=== PATIENT | female | born 1955 | race Caucasian/White ===

== ENCOUNTER 2016-06-14 04:48 | Inpatient (IN) | payer MEDICAID ==
[~2016-06-14] VITALS: Ht 172.7 cm; Wt 70.0 kg
[2016-06-14] VITALS (11 sets, daily range): BP systolic 96–150; BP diastolic 54–82; PULSE 53–82; RESP 16–28; TEMP 97.8–98.2; O2SAT 91–98
[~2016-06-14 04:48] MED LIST: ALBU0.08 NEB; ALBUAER3 INH; HYDR-3366 PO; METO50TA11 PO; OMEP40CA2 PO; TRAZ100T4 PO
[2016-06-14] MEDS ORDERED: SODIUM CHLOR 0.9% 1000 ML INJ 1,000 ML IV SCH (05:08)
[2016-06-14] MEDS ORDERED: SODIUM CHLORIDE 0.9% FLUSH 5 ML FLUSH IVF PRN (05:15)
[2016-06-14] MEDS ORDERED: ONDANSETRON HCL 4 MG/2 ML VIAL IVP ONE (05:15)
[2016-06-14] MEDS ORDERED: HYDROmorphone HCL PF 1 MG/ML VIAL IVS ONE (05:15)
--- NOTE | 2016-06-14 05:16 | PD ---
HPI Chief Complaint: Abdominal Pain Time Seen by Provider: 05:02 Travel History International Travel<30 days: No Contact w/Intl Traveler<30days: No Traveled to known affect area: No History of Present Illness HPI The patient is a 61 year old female who presents to the [facility] emergency department with a history of abdominal pain that began approximately 24 hours ago. The patient was difficult to obtain a history from due to her pain. She is repeatedly moaning. The patient reports the pain is generalized throughout her abdomen. She is unable to describe the character, however she reports that the severity is 10 out of 10. The patient reports that she's had a subjective fever associated with this. She reports that she's had nausea and vomiting 5. She denies having any diarrhea. She last moved her bowels yesterday. She denies ever having a pain like this previously. She denies ever having colonoscopy previously. The patient denies any recent worsening cough, congestion, neck pain, chest pain, shortness of breath, urinary symptoms , or neurologic symptoms. [facility] Past Medical History Narrative Medical The patient's past medical history is significant for acid reflux, history of hypertension, hyperlipidemia, COPD, osteoarthritis with chronic left hip pain, tobacco abuse. Arthritis: Yes Autoimmune Disease: No Blood Disorders: No Anxiety: No Depression: No Heart Rhythm Problems: No Cancer: No Cardiac Catheterization: No Cardiovascular Problems: Yes (HTN) High Cholesterol: No Congestive Heart Failure: No COPD: Yes Diabetes: No Diminished Hearing: No Diverticulitis: Yes Endocrine: No Gastrointestinal Disorders: Yes (ABD PAIN, VOMITING) GERD: Yes Genitourinary: No Hepatitis: No Hiatal Hernia: No Hypertension: Yes (NOT ON MEDICATION) Immune Disorder: No Implanted Vascular Access Dvce: No Musculoskeletal: Yes Neurologic: No Psychiatric: No Reproductive: No Respiratory: Yes Immunizations Current: No Thyroid Disease: No Tetanus Vaccination: < 5 Years Influenza Vaccination: No Menopausal: Yes Past Surgical History Narrative Surgical The patient's past surgical history is significant for bilateral knee replacements, right carpal tunnel release, C-sections 3, hysterectomy, cholecystectomy, appendectomy. Abdominal Surgery: Yes (CHOLECYSTECTOMY) Appendectomy: Yes Section: Yes (1974, 1976, 1979) Cholecystectomy: Yes Coronary Artery Bypass Graft: No Gynecologic Surgery: Yes (C SECTION X 3, UTERINE RUPTURE, HYSTERECTOMY) Hysterectomy: Yes (1981) Joint Replacement: Yes (BILAT KNEE REPLACEMENT ) Pacemaker: No Other Surgery: Yes Family History Family Myocardial Infarction: Yes Social History Alcohol Use: No Tobacco Use: Yes (06/01 PPD) Substance Use: No Allergies-Medications (Allergen,Severity, Reaction): Coded Allergies: Penicillin (Verified Allergy, Severe, 06/14/16) Sulfa (Verified Allergy, Severe, 06/14/16) Morphine (Verified Adverse Reaction, Mild, ITCHING, 06/14/16) Oxycodone (Verified Adverse Reaction, Mild, ITCHING, 06/14/16) Reported Meds & Prescriptions Reported Meds & Active Scripts Active Reported Albuterol Neb (Albuterol Sulfate) 2.5 Mg/3 Ml Neb 2.5 Mg NEB Q4HR While awake [place] (Hydrocodone-Acetaminophen) 10-325 Mg Tab 1 Tab PO Q6H Proair Hfa 8.5 GM Inh (Albuterol Sulfate) 90 Mcg/Act Aer 2 Puff INH Q4HR 108 mcg/actuation Omeprazole 40 Mg Cap 40 Mg PO DAILY Metoprolol Succinate ER 24 HR (Metoprolol Succinate) 50 Mg Tab 50 Mg PO DAILY Review of Systems Except as stated in HPI: all other systems reviewed are Neg General / Constitutional: Positive: Fever Eyes: No: Visual changes HENT: No: Headaches Cardiovascular: No: Chest Pain or Discomfort Respiratory: No: Shortness of Breath Gastrointestinal: Positive: Nausea, Vomiting, Abdominal Pain, Indigestion, Loss of Appetite, No: Hematemesis, Hematochezia, Constipation, Changes in Bowel Habits Genitourinary: No: Dysuria Musculoskeletal: No: Pain Skin: No Rash Neurologic: No: Weakness Psychiatric: No: Depression Endocrine: No: Polydipsia Hematologic/Lymphatic: No: Easy Bruising Physical Exam Narrative General: The patient is a well-developed well-nourished female, uncomfortable appearing on examination, diaphoretic, moaning. Head and Neck exam: Head is normocephalic atraumatic. Eyes: Pupils are equal round and reactive to light. Nose: Midline septum with pink mucous membranes Mouth: Dentition unremarkable. Moist mucus membranes. Posterior oropharynx is not erythematous. No tonsillar hypertrophy. Uvula midline. Airway patent. Neck: No palpable lymphadenopathy. No nuchal rigidity. No thyromegaly. Cardiovascular: Regular rate and rhythm without murmurs, gallops, or rubs. Lungs: Clear to auscultation bilaterally. No wheezes, rhonchi, or rales. Abdomen: Soft, with diffuse tenderness on palpation. No focal area of pain is able to be identified with palpating the patient's abdomen. The patient has decreased bowel sounds are audible. The patient has a negative Rodríguez's sign. No masses are palpable. No hernia is palpable. Extremities: No clubbing, cyanosis, or edema. 2+ pulses in all 4 extremities. No calf tenderness on palpation. Back: No costovertebral angle tenderness to palpation. Neurologic Exam: Grossly nonfocal. Skin Exam: No rash noted. Intact skin that is warm and slightly damp from diaphoresis. Data Data Last Documented VS Vital Signs Date Time Temp Pulse Resp B/P Pulse Ox O2 Delivery O2 Flow Rate FiO2 06/14/16 05:11 28 98 Room Air 06/14/16 04:59 73 150/82 Orders Complete Blood Count With Diff (06/14/16 05:08) Comprehensive Metabolic Panel (06/14/16 05:08) Lipase (06/14/16 05:08) Lactic Acid (06/14/16 05:08) Prothrombin Time / Inr (Pt) (06/14/16 05:08) Act Partial Throm Time (Ptt) (06/14/16 05:08) Urinalysis - C+S If Indicated (06/14/16 05:08) Iv Access Insert/Monitor (06/14/16 05:08) Ecg Monitoring (06/14/16 05:08) Oximetry (06/14/16 05:08) Ondansetron Inj (Zofran Inj) (06/14/16 05:15) Sodium Chlor 0.9% 1000 Ml Inj (Ns 1000 M (06/14/16 05:08) Sodium Chloride 0.9% Flush (Ns Flush) (06/14/16 05:15) Electrocardiogram (06/14/16 05:08) Abdomen, Upright Only (06/14/16 05:08) Hydromorphone Pf Inj (Dilaudid Pf Inj) (06/14/16 05:15) Creatine Kinase (Cpk) (06/14/16 05:08) Ckmb (Isoenzyme) Profile (06/14/16 05:08) Troponin I (06/14/16 05:08) C-Reactive Protein (Crp) (06/14/16 05:08) Ct Abd/Pel W Iv Contrast(Rout) (06/14/16 05:55) Sodium Chlorid 0.9% 500 Ml Inj (Ns 500 M (06/14/16 06:30) Iohexol 350 Inj (Omnipaque 350 Inj) (06/14/16 06:39) Admit To Inpatient (06/14/16 ) Vital Signs (Adult) Q4H (06/14/16 06:59) Activity Oob With Assistance (06/14/16 06:59) ^ Battery Mechanic / Telemetry .CONTINUOUS (06/14/16 06:59) Intake + Output DRE.QSHIFT (06/14/16 06:59) Diet Npo (06/14/16 Breakfast) Sodium Chlor 0.9% 1000 Ml Inj (Ns 1000 M (06/14/16 06:59) Sodium Chloride 0.9% Flush (Ns Flush) (06/14/16 07:00) Sodium Chloride 0.9% Flush (Ns Flush) (06/14/16 09:00) Ondansetron Inj (Zofran Inj) (06/14/16 07:00) Metoclopramide Inj (Reglan Inj) (06/14/16 07:00) Basic Metabolic Panel (Bmp) (06/15/16 06:00) Complete Blood Count With Diff (06/15/16 06:00) Scd Bilateral/Knee High DRE.BID (06/14/16 06:59) Naloxone Inj (Narcan Inj) (06/14/16 07:00) Inpatient Certification (06/14/16 ) Admit Order (Ed Use Only) (06/14/16 06:59) Hydromorphone Pf Inj (Dilaudid Pf Inj) (06/14/16 07:00) Labs Laboratory Tests Test 06/14/16 05:10 White Blood Count 11.6 TH/MM3 Red Blood Count 5.96 MIL/MM3 Hemoglobin 17.9 GM/DL Hematocrit 51.6 % Mean Corpuscular Volume 86.5 FL Mean Corpuscular Hemoglobin 30.0 PG Mean Corpuscular Hemoglobin 34.6 % Concent Red Cell Distribution Width 13.2 % Platelet Count 245 TH/MM3 Mean Platelet Volume 9.4 FL Neutrophils (%) (Auto) 79.8 % Lymphocytes (%) (Auto) 12.4 % Monocytes (%) (Auto) 6.3 % Eosinophils (%) (Auto) 1.3 % Basophils (%) (Auto) 0.2 % Neutrophils # (Auto) 9.2 TH/MM3 Lymphocytes # (Auto) 1.4 TH/MM3 Monocytes # (Auto) 0.7 TH/MM3 Eosinophils # (Auto) 0.1 TH/MM3 Basophils # (Auto) 0.0 TH/MM3 CBC Comment DIFF FINAL Differential Comment Prothrombin Time 10.9 SEC Prothromb Time International 1.0 RATIO Ratio Activated Partial 27.8 SEC Thromboplast Time Sodium Level 138 MEQ/L Potassium Level 3.6 MEQ/L Chloride Level 103 MEQ/L Carbon Dioxide Level 24.2 MEQ/L Anion Gap 11 MEQ/L Blood Urea Nitrogen 11 MG/DL Creatinine 1.06 MG/DL Estimat Glomerular Filtration 53 ML/MIN Rate Random Glucose 137 MG/DL Lactic Acid Level 1.6 mmol/L Calcium Level 10.0 MG/DL Total Bilirubin 0.8 MG/DL Aspartate Amino Transf 15 U/L (AST/SGOT) Alanine Aminotransferase 23 U/L (ALT/SGPT) Alkaline Phosphatase 108 U/L Total Creatine Kinase 63 U/L Troponin I LESS THAN 0.02 NG/ML C-Reactive Protein 0.81 MG/DL Total Protein 8.4 GM/DL Albumin 4.0 GM/DL Lipase 122 U/L [facility] Medical Decision Making Medical Screen Exam Complete: Yes Emergency Medical Condition: Yes Medical Record Reviewed: Yes Interpretation(s) Last Impressions Abdomen/Pelvis CT 06/14/16 0555 Signed Impressions: Service Date/Time: Tuesday, June 14, 2016 06:21 - CONCLUSION: Distal small bowel obstruction. Carter Parikh MD Abdomen X-Ray 06/14/16 0506 Signed Impressions: Service Date/Time: Tuesday, June 14, 2016 05:25 - CONCLUSION: Normal examination. Carter Parikh MD Differential Diagnosis Bowel obstruction, versus ischemic bowel, versus pancreatitis, versus kidney stone Narrative Course During the course of the patients emergency department visit, the patients history, examination, and differential diagnosis were reviewed with the patient. The patient had IV access obtained and blood work sent for analysis. The patient was placed on a cardiac exercise physiologist with oximetry and blood pressure monitoring. The patient had an EKG done on arrival. The patient's EKG shows a sinus rhythm heart rate of 65, no acute ST segment changes are noted. An abdominal upright film has been ordered to rule out free air. The patient was provided hydromorphone 0.5 mg IV, normal saline 1 L IV fluid bolus, Zofran 4 mg IV. The patients laboratory studies were reviewed and remarkable for a white count of 11.6, hemoglobin 17.9, platelets 245 with 79.8 neutrophils, CMP is remarkable for creatinine of 1.06, glucose 137, lactic acid 1.6, cardiac enzymes are negative, C-reactive protein 0.81, lipase 122, PT PTT unremarkable. Radiology studies were reviewed and remarkable for an abdominal upright x-ray that shows no evidence of free air. CT scan of the abdomen and pelvis shows a distal small bowel obstruction. The patients results were discussed with the patient, including the plan of care. I explained that further testing and/ or monitoring is indicated based on the patients history, examination, and/ or laboratory findings. Therefore, I recommended admission for additional evaluation. The patient expressed understanding and was agreeable with this plan. The patient was admitted to the hospital in stable condition and [facility] Physician Communication Physician Communication The patient's case was discussed with Dr. Loving who did agree to admit the patient for further evaluation and treatment at this time. Diagnosis Primary Impression: Abdominal pain Qualified Code: R10.84 - Generalized abdominal pain Additional Impression: Small bowel obstruction Admitting Information Admitting Physician Requests: Admit Cat Veliz MD Jun 14, 2016 05:16
[2016-06-14 05:25] LABS: AUTOMATED NEUTROPHIL # 9.2 TH/MM3 (1.8-7.7); BASOPHIL % 0.2 % (0.0-2.0); EOSINOPHIL # 0.1 TH/MM3 (0-0.4); EOSINOPHIL % 1.3 % (0.0-4.0); HEMATOCRIT 51.6 % (35.0-46.0); HEMO FLAGS DIFF FINAL; LYMPH % 12.4 % (9.0-44.0); LYMPHOCYTE # 1.4 TH/MM3 (1.0-4.8); MEAN CELL VOLUME 86.5 FL (80.0-100.0); MEAN CORPUSCULAR HGB CONC 34.6 % (32.0-36.0); MONO % 6.3 % (0.0-8.0); NEUT % 79.8 % (16.0-70.0); PLATELET COUNT 245 TH/MM3 (150-450); RED BLOOD COUNT 5.96 MIL/MM3 (4.00-5.30); RED CELL DISTRIBUTION WIDTH 13.2 % (11.6-17.2); WHITE BLOOD COUNT 11.6 TH/MM3 (4.0-11.0)
[2016-06-14 05:34] LABS: APTT (PATIENT) 27.8 SEC (24.3-30.1); PROTHROMBIN TIME - PATIENT 10.9 SEC (9.8-11.6)
[2016-06-14 05:42] LABS: ALT (GPT) 23 U/L (10-53); ANION GAP 11 MEQ/L (5-15); AST (GOT) 15 U/L (15-37); BICARBONATE 24.2 MEQ/L (21.0-32.0); BLOOD UREA NITROGEN 11 MG/DL (7-18); CHLORIDE 103 MEQ/L (98-107); GLOMERULAR FILTRATION RATE 53 ML/MIN (>89); POTASSIUM 3.6 MEQ/L (3.5-5.1); SODIUM (NA) 138 MEQ/L (136-145)
[2016-06-14 05:46] LABS: ALKALINE PHOSPHATASE 108 U/L (45-117); TOTAL BILIRUBIN ADULT 0.8 MG/DL (0.2-1.0)
[2016-06-14 05:48] LABS: CREATINE KINASE 63 U/L (26-192)
--- NOTE | 2016-06-14 06:12 | RADRPT ---
EXAM DATE/TIME: 06/14/2016 05:25 [facility] COMPARISON: No previous studies available for comparison. INDICATIONS : Abdominal pain, vomiting. MEDICAL HISTORY : Gastroesophageal reflux disease. Diverticulitis. SURGICAL HISTORY : Appendectomy. Cholecystectomy. section. ENCOUNTER: Initial ACUITY: 1 day PAIN SCORE: 10/10 LOCATION: Abdomen, all quadrants. FINDINGS: A single erect view of the abdomen demonstrates the lower lungs to be clear. No evidence of free int raperitoneal gas. The visualized bowel loops are unremarkable. CONCLUSION: Normal examination. Carter Parikh MD on June 14, 2016 at 6:11 Board Certified Radiologist. This report was verified electronically.
[2016-06-14] MEDS ORDERED: SODIUM CHLORID 0.9% 500 ML INJ 500 ML IV ONE (06:30)
[2016-06-14] MEDS ORDERED: IOHEXOL 350 MG/ML 10 ML VIAL (for RAD DIAG) IV ONE (06:39)
--- NOTE | 2016-06-14 06:46 | RADRPT ---
EXAM DATE/TIME: 06/14/2016 06:21 [facility] COMPARISON: No previous studies available for comparison. INDICATIONS : Abdominal pain with nausea, vomiting, and constipation IV CONTRAST: 80 cc Omnipaque 350 (iohexol) IV ORAL CONTRAST: No oral contrast ingested. RADIATION DOSE: 13.71 CTDIvol (mGy) MEDICAL HISTORY : Hypertension. Gastroesophageal reflux disease. Diverticulitis.COPD SURGICAL HISTORY : Cholecystectomy. Appendectomy.Hysterectomy. ENCOUNTER: Initial ACUITY: 1 day PAIN SCALE: 10/10 LOCATION: abdomen TECHNIQUE: Volumetric scanning of the abdomen and pelvis was performed. Using automated exposure control and ad justment of the mA and/or kV according to patient size, radiation dose was kept as low as reasonably achievable to obtain optimal diagnostic quality images. FINDINGS: LOWER LUNGS: The visualized lower lungs are clear. LIVER: Mildly diminished attenuation, likely steatosis without evidence of focal mass or biliary ductal dila tation. Gallbladder is surgically absent. SPLEEN: Normal size without lesion. PANCREAS: Within normal limits. KIDNEYS: Normal in size and shape. There is no mass, stone or hydronephrosis. ADRENAL GLANDS: Within normal limits. VASCULAR: Patchy vascular calcifications. No evidence of aneurysm. No major vessel occlusion. BOWEL/MESENTERY: Small hiatal hernia. Mild dilatation of proximal small bowel up to a transition point involving a loo p of ileum in the right pelvis. No associated mass. Diverticula involving the distal colon without ch anges to suggest active diverticulitis. ABDOMINAL WALL: Within normal limits. RETROPERITONEUM: There is no lymphadenopathy. BLADDER: No wall thickening or mass. REPRODUCTIVE: Uterus is surgically absent. No evidence of pelvic mass or free fluid. INGUINAL: There is no lymphadenopathy or hernia. MUSCULOSKELETAL: Within normal limits for patient age. CONCLUSION: Distal small bowel obstruction. Carter Parikh MD on June 14, 2016 at 6:41 Board Certified Radiologist. This report was verified electronically.
[2016-06-14] MEDS ORDERED: METOCLOPRAMIDE HCL 10 MG/2 ML VIAL IV PUSH PRN (07:00)
[2016-06-14] MEDS ORDERED: SODIUM CHLORIDE 0.9% FLUSH 5 ML FLUSH FLUSH PRN (07:00)
[2016-06-14] MEDS ORDERED: NALOXONE HCL 0.4 MG/ML AMP IV PRN ×2 (07:00→12:15)
[2016-06-14] MEDS: SODIUM CHLOR 0.9% 1000 ML INJ 1,000 ML IV SCH ×3 (07:14→14:45)
--- NOTE | 2016-06-14 08:09 | HHI.HP ---
[facility] Unknown Admission Diagnosis Small bowel obstruction Diagnoses: (1) Small bowel obstruction (2) Hyperlipidemia (3) Tobacco abuse (4) COPD (chronic obstructive pulmonary disease) (5) Nicotine dependence (6) Hypertension Chief Complaint: Abdominal pain Travel History International Travel<30 Days: No Contact w/Intl Traveler <30 Da: No Traveled to Known Affected Are: No History of Present Illness 61-year-old female with a history of COPD, prior surgical history of lap cholecystectomy, appendectomy, VILMA presented to the ED for evaluation of an acute onset of worsening abdominal pain x greater than 24hours duration and described as stabbing and constant rated 10/10 in intensity associated with intractable nausea and vomiting. She reported multiple episodes of emesis nonbilious without any evidence of gross bleed. Patient reports her last BM few hours prior to the onset of abdominal pain and only had one flatus at 2 AM this morning. She denies any relief. During my exam she was constantly moaning. She feels short of breath secondary to emesis and abdominal pain otherwise denies any chest pain. There is no bladder dysfunction. Review of Systems Other Other 12 systems reviewed and are negative except for the one mentioned in history of present illness Past Family Social History Past Medical History acid reflux, history of hypertension, hyperlipidemia, COPD, osteoarthritis with chronic left hip pain, tobacco abuse. Past Surgical History bilateral knee replacements, right carpal tunnel release, C-sections 3, hysterectomy, cholecystectomy, appendectomy. Reported Medications Albuterol Neb (Albuterol Sulfate) 2.5 Mg/3 Ml Neb 2.5 Mg NEB Q4HR While awake [place] (Hydrocodone-Acetaminophen) 10-325 Mg Tab 1 Tab PO Q6H Proair Hfa 8.5 GM Inh (Albuterol Sulfate) 90 Mcg/Act Aer 2 Puff INH Q4HR 108 mcg/actuation Omeprazole 40 Mg Cap 40 Mg PO DAILY Metoprolol Succinate ER 24 HR (Metoprolol Succinate) 50 Mg Tab 50 Mg PO DAILY Allergies: Coded Allergies: Penicillin (Verified Allergy, Severe, 06/14/16) Sulfa (Verified Allergy, Severe, 06/14/16) Morphine (Verified Adverse Reaction, Mild, ITCHING, 06/14/16) Oxycodone (Verified Adverse Reaction, Mild, ITCHING, 06/14/16) Family History History of heart disease Social History Alcohol Use: No Tobacco Use: Yes (06/01 PPD) Substance Use: No Physical Exam Vital Signs Vital Signs Date Time Temp Pulse Resp B/P Pulse Ox O2 Delivery O2 Flow Rate FiO2 06/14/16 05:11 28 98 Room Air 06/14/16 05:03 20 06/14/16 04:59 73 20 150/82 95 06/14/16 04:53 82 22 98 Physical Exam GENERAL: This is a well-nourished, well-developed patient, in mild distress SKIN: No rashes, ecchymoses or lesions. Cool and dry. HEAD: Atraumatic. Normocephalic. No temporal or scalp tenderness. EYES: Pupils equal round and reactive. Extraocular motions intact. No scleral icterus. No injection or drainage. ENT: Nose without bleeding, purulent drainage or septal hematoma. Throat without erythema, tonsillar hypertrophy or exudate. Uvula midline. Airway patent. NECK: Trachea midline. No JVD or lymphadenopathy. Supple, nontender, no meningeal signs. CARDIOVASCULAR: Regular rate and rhythm without murmurs, gallops, or rubs. RESPIRATORY: Clear to auscultation. Breath sounds equal bilaterally. No wheezes , rales, or rhonchi. GASTROINTESTINAL: Abdomen soft, diffusely tender, nondistended. No hepato- splenomegaly, or palpable masses. + guarding. Hypoactive bowel sounds MUSCULOSKELETAL: Extremities without clubbing, cyanosis, or edema. No joint tenderness, effusion, or edema noted. No calf tenderness. Negative Homans sign bilaterally. NEUROLOGICAL: Awake and alert. Cranial nerves II through XII intact. Motor and sensory grossly within normal limits. Five out of 5 muscle strength in all muscle groups. Normal speech. Laboratory Laboratory Tests Test 06/14/16 05:10 White Blood Count 11.6 Red Blood Count 5.96 Hemoglobin 17.9 Hematocrit 51.6 Mean Corpuscular Volume 86.5 Mean Corpuscular Hemoglobin 30.0 Mean Corpuscular Hemoglobin 34.6 Concent Red Cell Distribution Width 13.2 Platelet Count 245 Mean Platelet Volume 9.4 Neutrophils (%) (Auto) 79.8 Lymphocytes (%) (Auto) 12.4 Monocytes (%) (Auto) 6.3 Eosinophils (%) (Auto) 1.3 Basophils (%) (Auto) 0.2 Neutrophils # (Auto) 9.2 Lymphocytes # (Auto) 1.4 Monocytes # (Auto) 0.7 Eosinophils # (Auto) 0.1 Basophils # (Auto) 0.0 CBC Comment DIFF FINAL Differential Comment Prothrombin Time 10.9 Prothromb Time International 1.0 Ratio Activated Partial 27.8 Thromboplast Time Sodium Level 138 Potassium Level 3.6 Chloride Level 103 Carbon Dioxide Level 24.2 Anion Gap 11 Blood Urea Nitrogen 11 Creatinine 1.06 Estimat Glomerular Filtration 53 Rate Random Glucose 137 Lactic Acid Level 1.6 Calcium Level 10.0 Total Bilirubin 0.8 Aspartate Amino Transf 15 (AST/SGOT) Alanine Aminotransferase 23 (ALT/SGPT) Alkaline Phosphatase 108 Total Creatine Kinase 63 Troponin I LESS THAN 0.02 C-Reactive Protein 0.81 Total Protein 8.4 Albumin 4.0 Lipase 122 Result Diagram: 06/14/16 0510 06/14/16 0510 Imaging Last Impressions Abdomen/Pelvis CT 06/14/16 0555 Signed Impressions: Service Date/Time: Tuesday, June 14, 2016 06:21 - CONCLUSION: Distal small bowel obstruction. Carter Parikh MD Abdomen X-Ray 06/14/16 0508 Signed Impressions: Service Date/Time: Tuesday, June 14, 2016 05:25 - CONCLUSION: Normal examination. Carter Parikh MD Assessment and Plan Problem List: (1) Small bowel obstruction ICD Code: K56.69 Status: Acute Assessment and Plan 61 year-old female with Distal small bowel obstruction: CT abdomen noted and reviewed by me with finding of distal small bowel obstruction. Check upper GI with small bowel follow-through and start Conservative treatment now with NG tube, IV fluid hydration, nothing by mouth, analgesic/antiemetic and Zosyn IV. If no improvement after 72 hours consider consultation to Gen. surgery versus GI for decompression +/- exp lap HALEY. Daily flat and upright in a.m. Leukocytosis: Check UA, monitor CBC. Hypertension: Resume Lopressor, Vasotec when necessary History of COPD: Chest x-ray noted and reviewed by me without any cardio pulmonary disease, resumed;, DuoNeb when necessary. Advised on tobacco cessation GERD: Start PPI Nicotine dependence: Advised on tobacco cessation, start nicotine patch DVT prophylaxis: Heparin/bilateral SCDs Code Status Full code Discussed Condition With Patient Physician Certification 2 Midnight Certification Type: Admission for Inpatient Services Order for Inpatient Services The services are ordered in accordance with Medicare regulations or non- Medicare payer requirements, as applicable. In the case of services not specified as inpatient-only, they are appropriately provided as inpatient services in accordance with the 2-midnight benchmark. Estimated LOS (days): 2 days is the estimated time the patient will need to remain in the hospital, assuming treatment plan goals are met and no additional complications. Post-Hospital Plan: Not yet determined Lars Rockwell MD Jun 14, 2016 08:09
[2016-06-14] MEDS ORDERED: RESP: ALBUTEROL 2.5 MG/IPRATROPIUM 0.5 MG NEB (PRN) NEB (08:15)
[2016-06-14] MEDS ORDERED: ACETAMINOPHEN 325 MG TAB PO PRN ×3 (08:15→12:15)
[2016-06-14] MEDS ORDERED: TEMAZEPAM 15 MG CAP PO PRN (08:15)
[2016-06-14] MEDS: METOPROLOL SUCCINATE 50 MG EXTENDED RELEASE TAB PO SCH (09:00)
[2016-06-14] MEDS: HYDROmorphone HCL PF 1 MG/ML VIAL IV PUSH PRN ×4 (09:54→23:16)
--- NOTE | 2016-06-14 10:50 | EKG ---
Date Performed: 06/14/2016 Time Performed: 05:08:16 PTAGE: 61 years EKG: Sinus rhythm NORMAL ECG Compared to prior tracing no significant change PREVIOUS TRACING : 04/05/2016 18.09 DOCTOR: Juwan Veliz Interpretating Date/Time 06/14/2016 10:45:44
[2016-06-14] MEDS: SODIUM CHLORIDE 0.9% FLUSH 5 ML FLUSH FLUSH SCH ×2 (10:58→20:39)
[2016-06-14] MEDS: PANTOPRAZOLE SODIUM 40 MG VIAL IV PUSH SCH (10:59)
[2016-06-14] MEDS: NICOTINE 21 MG/24 HR PATCH TD SCH (10:59)
[2016-06-14] MEDS: REMOVE OLD NICOTINE PATCH TD SCH (11:00)
[2016-06-14] MEDS ORDERED: ALBUTEROL SULFATE 90 MCG/ACT HFA 8 GM INHALER INH SCH (12:00)
[2016-06-14] MEDS ORDERED: MAGNESIUM CITRATE SOLN 300 ML BTL PO ONE ×2 (12:00→18:00)
[2016-06-14] MEDS ORDERED: KETOROLAC TROMETHAMINE 30 MG/ML (IVP) VIAL IVP PRN ×2 (12:15)
[2016-06-14] MEDS ORDERED: PIPERACIL-TAZO 3.375 GM PREMIX 50 ML IV SCH (12:30)
[2016-06-14] MEDS: BISACODYL EC 5 MG TABEC PO SCH ×2 (14:51→20:39)
[2016-06-14] MEDS: RESP: ALBUTEROL 2.5 MG/IPRATROPIUM 0.5 MG NEB (SCH) NEB ×2 (14:56→19:58)
[2016-06-14] MEDS ORDERED: LORazepam 2 MG/ML VIAL IV ONE (17:45)
[2016-06-15] VITALS (9 sets, daily range): BP systolic 128–155; BP diastolic 61–95; PULSE 61–82; RESP 18–20; TEMP 97.5–98.2; O2SAT 90–98
[2016-06-15] MEDS: SODIUM CHLOR 0.9% 1000 ML INJ 1,000 ML IV SCH ×3 (02:42→22:21)
[2016-06-15] MEDS: metroNIDAZOLE 500 MG INJ 100 ML IV SCH ×3 (02:42→19:51)
[2016-06-15] MEDS: HYDROmorphone HCL PF 1 MG/ML VIAL IV PUSH PRN ×4 (02:43→19:50)
[2016-06-15] MEDS: RESP: ALBUTEROL 2.5 MG/IPRATROPIUM 0.5 MG NEB (SCH) NEB ×3 (08:01→20:05)
[2016-06-15] MEDS: REMOVE OLD NICOTINE PATCH TD SCH (09:00)
[2016-06-15] MEDS: SODIUM CHLORIDE 0.9% FLUSH 5 ML FLUSH FLUSH SCH ×2 (09:00→21:00)
[2016-06-15 09:02] LABS: BASOPHIL % 0.2 % (0.0-2.0); EOSINOPHIL # 0.2 TH/MM3 (0-0.4); EOSINOPHIL % 2.9 % (0.0-4.0); HEMATOCRIT 42.6 % (35.0-46.0); HEMO FLAGS DIFF FINAL; LYMPH % 19.5 % (9.0-44.0); LYMPHOCYTE # 1.1 TH/MM3 (1.0-4.8); MEAN CELL VOLUME 87.4 FL (80.0-100.0); MEAN CORPUSCULAR HEMOGLOBIN 29.8 PG (27.0-34.0); MEAN CORPUSCULAR HGB CONC 34.1 % (32.0-36.0); MONO % 8.3 % (0.0-8.0); NEUT % 69.1 % (16.0-70.0); PLATELET COUNT 149 TH/MM3 (150-450); RED BLOOD COUNT 4.88 MIL/MM3 (4.00-5.30); WHITE BLOOD COUNT 5.8 TH/MM3 (4.0-11.0)
[2016-06-15 09:28] LABS: BICARBONATE 25.7 MEQ/L (21.0-32.0); POTASSIUM 3.4 MEQ/L (3.5-5.1)
[2016-06-15] MEDS: CIPROFLOXACIN 400 MG PREMIX 200 ML IV SCH ×2 (09:33→22:21)
--- NOTE | 2016-06-15 09:53 | RADRPT ---
EXAM DATE/TIME: 06/15/2016 08:54 [facility] COMPARISON: CT ABDOMEN & PELVIS W CONTRAST, June 14, 2016, 6:21. INDICATIONS : Possible obstruction. MEDICAL HISTORY : Hypertension. Gastroesophageal reflux disease. Diverticulitis. copd SURGICAL HISTORY : Cholecystectomy. section. perforated uterus ENCOUNTER: Initial ACUITY: 2 days PAIN SCORE: 7/10 LOCATION: Bilateral abdomen FINDINGS: Supine and upright views of the abdomen were performed. There is an NG tube identified overlying the stomach with the proximal port at the level of the gastroesophageal junction. The abdominal bowel ga s pattern is normal. No air fluid levels are seen. No abnormal masses, calcifications, or organomeg adelso is seen. The visualized lower lungs are clear. No evidence of free intraperitoneal gas. The os seous structures are unremarkable. CONCLUSION: Appropriately positioned NG tube. No current evidence of small bowel obstruction. Sari Jacinto MD on June 15, 2016 at 9:51 Board Certified Radiologist. This report was verified electronically.
--- NOTE | 2016-06-15 09:55 | MB ---
cc: PRECIOUS HEARN MD DATE OF CONSULTATION: 06/15/2016 REASON FOR CONSULTATION Abdominal pain, small bowel obstruction. HISTORY OF PRESENT ILLNESS The patient is a 61-year-old female with several medical issues and multiple surgeries including laparoscopic cholecystectomy, appendectomy, hysterectomy. The patient presents with acute onset of abdominal pain. She stated the pain started approximately 24 hours ago and continued to get worse. The pain initially was 10/10, sharp, and located in the pelvic lesion. She had several episodes of nausea and vomiting. She decided to come to the emergency department for further work-up and evaluation. She underwent CT scan showing small bowel obstruction and an NG tube was placed. She states she has passed a little bit of flatus and had a bowel movement 2 days ago. She states her pain has improved somewhat this morning but is still present. She denies any further vomiting overnight. On my exam the patient's abdomen is tender to palpation but soft. PAST MEDICAL HISTORY 1. GERD. 2. Hypertension. 3. Hyperlipidemia. 4. COPD. 5. Arthritis. PAST SURGICAL HISTORY 1. Cholecystectomy. 2. Appendectomy. 3. Hysterectomy. 4. x3. 5. Carpal tunnel. 6. Bilateral knee replacement. MEDICATIONS See EMR. ALLERGIES 1. PENICILLIN. 2. SULFA. 3. MORPHINE. 4. OXYCODONE. FAMILY HISTORY Father with diabetes and heart disease. SOCIAL HISTORY Denies ETOH or IVDA. Positive 1/4 pack smoking daily. REVIEW OF SYSTEMS GENERAL: Denies fevers. HEENT: Denies eye pain, ear pain. NECK: Denies adenopathy or swelling. CHEST: Denies palpitations or wheeze. CARDIOVASCULAR: Denies chest pains or palpitations. RESPIRATORY: Denies cough. GI: Complained of abdominal pain, nausea, vomiting. MUSCULOSKELETAL: Complained of arthralgias. Denies myalgias. NEUROLOGIC: Denies numbness or tingling. : Denies dysuria, hematuria. INTEGUMENT: Denies lesions or bruising. PSYCHIATRIC: Denies change in mood or insight. ENDOCRINE: Denies polyuria, polydipsia. PHYSICAL EXAMINATION GENERAL: Patient in no acute distress. VITAL SIGNS: Temperature 98.0, pulse 73, respirations 18, blood pressure 129/84. 92% on two liters. HEENT: PERRLA, EOMI. No icterus. NECK: Supple. Trachea midline. HEART: S1, S2, regular. LUNGS: Bilateral expansion. Clear to auscultation. ABDOMEN: Soft, minimal distension. Positive tenderness to palpation diffusely. No rebound. No guarding. EXTREMITIES: Well-healed bilateral lower extremity scars. Moving all extremities. NEUROLOGIC: GCS 15. Alert and oriented x4. : Within normal limits. SKIN: No obvious masses or lesions. LABORATORY/DIAGNOSTIC DATA WBC 5.8, hemoglobin 14.5, hematocrit 42.6, platelets 149. Sodium 138, potassium 3.6, chloride 103, BUN 11, creatinine 1, AST 15, ALT 23, alkaline phosphatase 108, albumin 4. INR 1. Imaging reviewed by myself. CT of the abdomen and pelvis evidence of distal small bowel obstruction, dilated proximal loops, decompressed distally. ASSESSMENT The patient is a 61-year-old female with small bowel obstruction, history of several surgeries, concern for adhesions. PLAN After full radiologic, clinical and laboratory assessment, patient with above-named complaints including a small bowel obstruction. At this time the patient has an NG tube in place and agree with continue on suction. Check and correct electrolytes as patient does appear to be somewhat dehydrated. Continue IV fluid and resuscitation. Continue abdominal exams. Will attempt first nonoperative therapy and if the patient does not improve will consider doing a small bowel follow-through, repeat abdominal x-ray and continue assessment. The patient may warrant operative intervention if no improvement. MD FENG Olivier/JOE /9:18 AM /9:38 AM
[2016-06-15] MEDS: NICOTINE 21 MG/24 HR PATCH TD SCH (09:57)
[2016-06-15] MEDS: METOPROLOL SUCCINATE 50 MG EXTENDED RELEASE TAB PO SCH (09:58)
[2016-06-15] MEDS ORDERED: PNEUMOCOCCAL POLYVALENT INJ 25 MCG/0.5 ML SYR IM ONE (10:00)
[2016-06-15] MEDS ORDERED: INFLUENZA VIRUS VACCINE (QUADRIVALENT) 0.5 ML SYR IM ONE (10:00)
--- NOTE | 2016-06-15 10:22 | HHI.PR ---
Subjective Remarks Follow-up distal small bowel obstruction 06/15/16-patient seen and examined; NG tube in place and reports some improvement of abdominal pain ; follow-up flat and an upright this morning without any evidence of obstruction. Objective Vitals Vital Signs Date Time Temp Pulse Resp B/P Pulse Ox O2 Delivery O2 Flow Rate FiO2 06/15/16 08:02 92 21 06/15/16 08:00 98.0 82 20 143/70 91 06/15/16 04:00 97.9 77 18 129/61 92 06/15/16 00:00 98.0 73 18 129/84 92 06/14/16 20:09 64 06/14/16 20:01 91 21 06/14/16 20:00 98.2 60 18 96/54 97 06/14/16 16:00 97.9 63 18 106/57 93 06/14/16 14:57 96 21 06/14/16 14:01 79 18 135/79 06/14/16 13:50 97.8 63 20 137/61 95 06/14/16 11:01 53 16 107/63 93 Nasal Cannula 2 06/14/16 10:40 16 I/O 06/14/16 06/14/16 06/14/16 06/15/16 06/15/16 06/15/16 07:00 15:00 23:00 07:00 15:00 23:00 Intake Total 365 ml 742 ml Balance 365 ml 742 ml Intake Oral 0 ml 0 ml IV Total 365 ml 742 ml # Voids 2 1 # Bowel Movements 0 0 Result Diagram: 06/15/1681606/15/16816 Imaging Last Impressions Abdomen X-Ray 06/15/16 0600 Signed Impressions: Service Date/Time: Wednesday, June 15, 2016 08:54 - CONCLUSION: Appropriately positioned NG tube. No current evidence of small bowel obstruction. Sari Jacinto MD Abdomen/Pelvis CT 06/14/16 0555 Signed Impressions: Service Date/Time: Tuesday, June 14, 2016 06:21 - CONCLUSION: Distal small bowel obstruction. Carter Parikh MD Objective Remarks GENERAL: NAD with NGT in place SKIN: Warm and dry. HEAD: Normocephalic. EYES: No scleral icterus. No injection or drainage. NECK: Supple, trachea midline. No JVD or lymphadenopathy. CARDIOVASCULAR: Regular rate and rhythm without murmurs, gallops, or rubs. RESPIRATORY: Breath sounds equal bilaterally. No accessory muscle use. GASTROINTESTINAL: Abdomen soft, non-tender, nondistended. Hypoactive bowel sounds MUSCULOSKELETAL: No cyanosis, or edema. BACK: Nontender without obvious deformity. No CVA tenderness. A/P Problem List: (1) Small bowel obstruction ICD Code: K56.69 Status: Resolved (2) Hyperlipidemia ICD Code: E78.5 Status: Chronic (3) Tobacco abuse ICD Code: Z72.0 Status: Chronic (4) COPD (chronic obstructive pulmonary disease) ICD Code: J44.9 Status: Chronic (5) Nicotine dependence ICD Code: F17.200 Status: Chronic (6) Hypertension ICD Code: I10 Status: Chronic Assessment and Plan 61 year-old female with Distal small bowel obstruction: CT abdomen with finding of distal small bowel obstruction. Stable with Conservative treatment now with NG tube, IV fluid hydration, nothing by mouth, analgesic/antiemetic and Cipro and Flagyl IV. Repeat upright and flax without any evidence of instruction therefore will clamp NG tube and subsequently discontinued it. Appreciate input from general surgery. Daily flat and upright in a.m. Leukocytosis: Resolved. Hypertension: Continue Lopressor, Vasotec when necessary History of COPD: Chest x-ray noted and reviewed by me without any cardio pulmonary disease, continue Symbicort, DuoNeb when necessary. Advised on tobacco cessation GERD: Continue PPI Hypokalemia: Replace electrolyte and monitor Nicotine dependence: Advised on tobacco cessation, on nicotine patch DVT prophylaxis: Heparin/bilateral SCDs Lars Rockwell MD Jun 15, 2016 10:21
[2016-06-15] MEDS: PANTOPRAZOLE SODIUM 40 MG VIAL IV PUSH SCH (11:24)
[2016-06-15] MEDS: POTASSIUM CHLOR 20 MEQ PREMIX 100 ML IV SCH ×2 (16:18→18:25)
[2016-06-16] VITALS (7 sets, daily range): BP systolic 118–156; BP diastolic 60–77; PULSE 66–105; RESP 17–20; TEMP 97.4–98.6; O2SAT 91–93
[2016-06-16] MEDS: metroNIDAZOLE 500 MG INJ 100 ML IV SCH ×3 (03:54→17:32)
[2016-06-16 06:18] LABS: BASOPHIL % 0.2 % (0.0-2.0); EOSINOPHIL # 0.1 TH/MM3 (0-0.4); EOSINOPHIL % 1.7 % (0.0-4.0); HEMATOCRIT 43.9 % (35.0-46.0); HEMO FLAGS DIFF FINAL; LYMPH % 9.8 % (9.0-44.0); LYMPHOCYTE # 0.6 TH/MM3 (1.0-4.8); MEAN CELL VOLUME 87.7 FL (80.0-100.0); MEAN CORPUSCULAR HEMOGLOBIN 30.2 PG (27.0-34.0); MEAN CORPUSCULAR HGB CONC 34.4 % (32.0-36.0); MONO % 8.6 % (0.0-8.0); NEUT % 79.7 % (16.0-70.0); PLATELET COUNT 156 TH/MM3 (150-450); RED BLOOD COUNT 5.01 MIL/MM3 (4.00-5.30); RED CELL DISTRIBUTION WIDTH 13.1 % (11.6-17.2); WHITE BLOOD COUNT 6.2 TH/MM3 (4.0-11.0)
[2016-06-16 06:48] LABS: BICARBONATE 25.6 MEQ/L (21.0-32.0); POTASSIUM 3.6 MEQ/L (3.5-5.1)
[2016-06-16] MEDS: RESP: ALBUTEROL 2.5 MG/IPRATROPIUM 0.5 MG NEB (SCH) NEB ×3 (07:52→20:17)
--- NOTE | 2016-06-16 08:33 | HHI.PR ---
Subjective Remarks Follow-up distal small bowel obstruction 06/15/16-patient seen and examined; NG tube in place and reports some improvement of abdominal pain ; follow-up flat and an upright this morning without any evidence of obstruction. 06/16/16-patient seen and examined, and G-tube was accidentally removed last night. Patient reports some improvement of bowel movement but states it doesn' t still feel right and states she is only past flatus 1 Objective Vitals Vital Signs Date Time Temp Pulse Resp B/P Pulse Ox O2 Delivery O2 Flow Rate FiO2 06/16/16 04:00 98.6 77 18 118/66 93 06/16/16 00:00 97.7 77 18 150/71 91 06/15/16 20:30 Room Air 06/15/16 20:05 92 21 06/15/16 20:00 70 06/15/16 20:00 97.8 61 18 147/95 97 06/15/16 16:00 98.2 79 20 155/76 92 06/15/16 14:00 79 06/15/16 12:00 97.9 81 20 149/72 90 I/O 06/15/16 06/15/16 06/15/16 06/16/16 06/16/16 06/16/16 07:00 15:00 23:00 07:00 15:00 23:00 Intake Total 742 ml 1138 ml 1486 ml 846 ml Output Total 900 ml 200 ml Balance 742 ml 238 ml 1286 ml 846 ml Intake Oral 0 ml 0 ml 620 ml 0 ml IV Total 742 ml 1138 ml 866 ml 846 ml Output Urine Total 400 ml 200 ml Gastric Drainage Total 500 ml # Voids 1 0 3 # Bowel Movements 0 0 0 Result Diagram: 06/16/1652606/16/16526 Imaging Last Impressions Abdomen X-Ray 06/15/16 06 Signed Impressions: Service Date/Time: Wednesday, June 15, 2016 08:54 - CONCLUSION: Appropriately positioned NG tube. No current evidence of small bowel obstruction. Sari Jacinto MD Abdomen/Pelvis CT 06/14/16 0555 Signed Impressions: Service Date/Time: Tuesday, June 14, 2016 06:21 - CONCLUSION: Distal small bowel obstruction. Carter Parikh MD Objective Remarks GENERAL: NAD SKIN: Warm and dry. HEAD: Normocephalic. EYES: No scleral icterus. No injection or drainage. NECK: Supple, trachea midline. No JVD or lymphadenopathy. CARDIOVASCULAR: Regular rate and rhythm without murmurs, gallops, or rubs. RESPIRATORY: Breath sounds equal bilaterally. No accessory muscle use. GASTROINTESTINAL: Abdomen soft, mildly tender, nondistended. Hypoactive bowel sounds MUSCULOSKELETAL: No cyanosis, or edema. BACK: Nontender without obvious deformity. No CVA tenderness. A/P Problem List: (1) Small bowel obstruction ICD Code: K56.69 Status: Resolved (2) Hyperlipidemia ICD Code: E78.5 Status: Chronic (3) Tobacco abuse ICD Code: Z72.0 Status: Chronic (4) COPD (chronic obstructive pulmonary disease) ICD Code: J44.9 Status: Chronic (5) Nicotine dependence ICD Code: F17.200 Status: Chronic (6) Hypertension ICD Code: I10 Status: Chronic Assessment and Plan 61 year-old female with Distal small bowel obstruction: CT abdomen with finding of distal small bowel obstruction. Stable with Conservative treatment now with NG tube however was accidentally discontinued last night, IV fluid hydration, nothing by mouth, analgesic/antiemetic and Cipro and Flagyl IV. Repeat flat and upright this a.m. Appreciate input from general surgery. Leukocytosis: Resolved. Hypertension: Continue Lopressor, Vasotec when necessary History of COPD: Chest x-ray noted and reviewed by me without any cardio pulmonary disease, continue Symbicort, DuoNeb when necessary. Advised on tobacco cessation GERD: Continue PPI Hypokalemia: Resolved status post replacement Nicotine dependence: Advised on tobacco cessation, on nicotine patch DVT prophylaxis: Heparin/bilateral SCDs Lars Rockwell MD Jun 16, 2016 08:33
[2016-06-16] MEDS: SODIUM CHLOR 0.9% 1000 ML INJ 1,000 ML IV SCH ×2 (09:00→19:00)
[2016-06-16] MEDS: REMOVE OLD NICOTINE PATCH TD SCH (09:00)
[2016-06-16] MEDS: CIPROFLOXACIN 400 MG PREMIX 200 ML IV SCH ×2 (09:08→21:47)
[2016-06-16] MEDS: HYDROmorphone HCL PF 1 MG/ML VIAL IV PUSH PRN ×4 (09:09→21:47)
[2016-06-16] MEDS: PANTOPRAZOLE SODIUM 40 MG VIAL IV PUSH SCH (09:10)
[2016-06-16] MEDS: NICOTINE 21 MG/24 HR PATCH TD SCH (09:11)
[2016-06-16] MEDS: SODIUM CHLORIDE 0.9% FLUSH 5 ML FLUSH FLUSH SCH ×2 (09:12→21:00)
--- NOTE | 2016-06-16 10:56 | HHI.PR ---
Subjective Subjective Notes "My NGT fell out last night." "I'm so thirsty!!" Objective Vitals/I&O Vital Signs Date Time Temp Pulse Resp B/P Pulse Ox O2 Delivery O2 Flow Rate FiO2 06/16/16 08:00 97.5 105 20 156/72 92 06/16/16 07:15 Room Air 06/15/16 20:05 21 06/14/16 11:01 2 Labs Laboratory Tests Test 06/16/16 05:27 White Blood Count 6.2 Red Blood Count 5.01 Hemoglobin 15.1 Hematocrit 43.9 Mean Corpuscular Volume 87.7 Mean Corpuscular Hemoglobin 30.2 Mean Corpuscular Hemoglobin 34.4 Concent Red Cell Distribution Width 13.1 Platelet Count 156 Mean Platelet Volume 9.1 Neutrophils (%) (Auto) 79.7 Lymphocytes (%) (Auto) 9.8 Monocytes (%) (Auto) 8.6 Eosinophils (%) (Auto) 1.7 Basophils (%) (Auto) 0.2 Neutrophils # (Auto) 5.0 Lymphocytes # (Auto) 0.6 Monocytes # (Auto) 0.5 Eosinophils # (Auto) 0.1 Basophils # (Auto) 0.0 CBC Comment DIFF FINAL Differential Comment Sodium Level 140 Potassium Level 3.6 Chloride Level 106 Carbon Dioxide Level 25.6 Anion Gap 8 Blood Urea Nitrogen 7 Creatinine 0.78 Estimat Glomerular Filtration 75 Rate Random Glucose 104 Calcium Level 8.9 Cardiovascular: Regular Lungs: Clear Abdomen: Other (abdomen soft; not distended; only mildly tender with palpation ) Extremities: No edema A/P Assessment and Plan 61 year old female with SBO -No nausea/vomiting since NGT fell out -No need to replace NGT at this time -KUB today -Start sips of clears today -OOB and mobilize -Await bowel function to advance diet -Discussed with Dr. Medrano Attending Statement patient seen at bedside ng tube came out, ok to leak out at this time Attestation The exam, history, and the medical decision-making described in the above note were completed with the assistance of the mid-level provider. I reviewed and agree with the findings presented. I attest that I had a [id number] encounter with the patient on the same day, and personally performed and documented my assessment and findings in the medical record. Viridiana Kemp Jun 16, 2016 10:56 Luis Medrano MD Jun 25, 2016 21:19
--- NOTE | 2016-06-16 11:13 | RADRPT ---
EXAM DATE/TIME: 06/16/2016 10:42 [facility] COMPARISON: ABDOMEN FLAT & UPRIGHT, June 15, 2016, 8:54. INDICATIONS : Abdominal pain. Obstruction. MEDICAL HISTORY : Hypertension. Gastroesophageal reflux disease. Diverticulitis.COPD SURGICAL HISTORY : Cholecystectomy. Appendectomy.Hysterectomy. ENCOUNTER: Subsequent ACUITY: 3 days PAIN SCORE: 6/10 LOCATION: middle abdomen. FINDINGS: Examination of the abdomen demonstrates gaseous distention of the small bowel with air fluid levels m ost consistent with ileus .There are no findings of small bowel obstruction. No free air is identifie d. No organomegaly is evident. There are surgical clips in the right upper quadrant compatible with p rior cholecystectomy. CONCLUSION: Findings consisted with mild ileus. Followup examination is recommended if clinically indicated. Mitchell Sorenson MD on June 16, 2016 at 11:10 Board Certified Radiologist. This report was verified electronically.
[2016-06-16] MEDS: METOPROLOL SUCCINATE 50 MG EXTENDED RELEASE TAB PO SCH (13:13)
[2016-06-17] VITALS (7 sets, daily range): BP systolic 118–179; BP diastolic 63–98; PULSE 60–76; RESP 18–20; TEMP 97.3–98; O2SAT 93–97
[2016-06-17] MEDS: HYDROmorphone HCL PF 1 MG/ML VIAL IV PUSH PRN ×4 (02:26→23:46)
[2016-06-17] MEDS: metroNIDAZOLE 500 MG INJ 100 ML IV SCH ×2 (02:26→11:33)
[2016-06-17] MEDS: SODIUM CHLOR 0.9% 1000 ML INJ 1,000 ML IV SCH (05:00)
[2016-06-17] MEDS: RESP: ALBUTEROL 2.5 MG/IPRATROPIUM 0.5 MG NEB (SCH) NEB ×3 (07:39→20:00)
--- NOTE | 2016-06-17 08:37 | RADRPT ---
EXAM DATE/TIME: 06/17/2016 08:28 [facility] COMPARISON: ABDOMEN FLAT & UPRIGHT, June 16, 2016, 10:42. INDICATIONS : Evaluate for ileus. MEDICAL HISTORY : Hypertension. Gastroesophageal reflux disease. Diverticulitis. COPD. SURGICAL HISTORY : Cholecystectomy. Appendectomy.Hysterectomy. . ENCOUNTER: Subsequent ACUITY: 4 - 6 days PAIN SCORE: 7/10 LOCATION: Abdomen. FINDINGS: Examination of the abdomen demonstrates gaseous distention of the small bowel with air fluid levels m ost consistent with ileus .There are no findings of small bowel obstruction. No free air is identifie d. No organomegaly is evident. There are surgical clips in the right upper quadrant compatible with p rior cholecystectomy. CONCLUSION: 1. Continued findings of small bowel ileus. There has been no significant change when compared to the prior exam. Mitchell Sorenson MD on June 17, 2016 at 8:35 Board Certified Radiologist. This report was verified electronically.
[2016-06-17] MEDS: REMOVE OLD NICOTINE PATCH TD SCH (09:00)
[2016-06-17] MEDS: PANTOPRAZOLE SODIUM 40 MG VIAL IV PUSH SCH (09:21)
[2016-06-17] MEDS: METOPROLOL SUCCINATE 50 MG EXTENDED RELEASE TAB PO SCH (09:21)
[2016-06-17] MEDS: NICOTINE 21 MG/24 HR PATCH TD SCH (09:22)
[2016-06-17] MEDS: SODIUM CHLORIDE 0.9% FLUSH 5 ML FLUSH FLUSH SCH ×2 (09:22→21:00)
[2016-06-17] MEDS: CIPROFLOXACIN 400 MG PREMIX 200 ML IV SCH ×2 (09:23→23:45)
--- NOTE | 2016-06-17 10:43 | HHI.PR ---
Subjective Remarks Follow-up distal small bowel obstruction 06/15/16-patient seen and examined; NG tube in place and reports some improvement of abdominal pain ; follow-up flat and an upright this morning without any evidence of obstruction. 06/16/16-patient seen and examined, NG-tube was accidentally removed last night. Patient reports some improvement of bowel movement but states it doesn' t still feel right and states she is only past flatus 1 06/17/16-patient seen and examined; stills complaints of abdominal pain and states she did not tolerated PO last night Objective Vitals Vital Signs Date Time Temp Pulse Resp B/P Pulse Ox O2 Delivery O2 Flow Rate FiO2 06/17/16 08:23 97.5 68 19 152/85 95 06/17/16 04:00 97.6 76 18 118/63 97 06/17/16 00:00 97.3 69 18 155/74 93 06/16/16 20:50 Room Air 06/16/16 20:00 97.4 66 17 138/67 92 06/16/16 20:00 70 06/16/16 16:00 98.0 70 20 145/77 91 06/16/16 12:00 98.0 93 20 130/60 92 I/O 06/16/16 06/16/16 06/16/16 06/17/16 06/17/16 06/17/16 07:00 15:00 23:00 07:00 15:00 23:00 Intake Total 846 ml 1661 ml 1561 ml 240 ml Balance 846 ml 1661 ml 1561 ml 240 ml Intake Oral 0 ml 720 ml 620 ml 240 ml IV Total 846 ml 941 ml 941 ml # Voids 3 5 2 3 # Bowel Movements 0 0 0 Result Diagram: 06/16/1652606/16/16 0527 Imaging Last Impressions Abdomen X-Ray 06/17/16 0600 Signed Impressions: Service Date/Time: Friday, June 17, 2016 08:28 - CONCLUSION: 1. Continued findings of small bowel ileus. There has been no significant change when compared to the prior exam. Mitchell Sorenson MD Abdomen/Pelvis CT 06/14/16 0555 Signed Impressions: Service Date/Time: Tuesday, June 14, 2016 06:21 - CONCLUSION: Distal small bowel obstruction. Carter Parikh MD Objective Remarks GENERAL: NAD SKIN: Warm and dry. HEAD: Normocephalic. EYES: No scleral icterus. No injection or drainage. NECK: Supple, trachea midline. No JVD or lymphadenopathy. CARDIOVASCULAR: Regular rate and rhythm without murmurs, gallops, or rubs. RESPIRATORY: Breath sounds equal bilaterally. No accessory muscle use. GASTROINTESTINAL: Abdomen soft, mildly tender, nondistended. Hypoactive bowel sounds MUSCULOSKELETAL: No cyanosis, or edema. BACK: Nontender without obvious deformity. No CVA tenderness. A/P Problem List: (1) Small bowel obstruction ICD Code: K56.69 Status: Resolved (2) Hyperlipidemia ICD Code: E78.5 Status: Chronic (3) Tobacco abuse ICD Code: Z72.0 Status: Chronic (4) COPD (chronic obstructive pulmonary disease) ICD Code: J44.9 Status: Chronic (5) Nicotine dependence ICD Code: F17.200 Status: Chronic (6) Hypertension ICD Code: I10 Status: Chronic Assessment and Plan 61 year-old female with Distal small bowel obstruction/ileus: CT abdomen with finding of distal small bowel obstruction. Repeat KUB this morning with finding of Continued findings of small bowel ileus. Gen. surgery plan for exploratory laparoscopy with HALEY today 06/17/16. Continue with analgesic/antiemetic and Cipro and Flagyl IV. Appreciate input from general surgery. Leukocytosis: Resolved. Hypertension: Continue Lopressor, Vasotec when necessary History of COPD: Chest x-ray without any cardio pulmonary disease, continue Symbicort, DuoNeb when necessary. Advised on tobacco cessation GERD: Continue PPI Hypokalemia: Resolved status post replacement Nicotine dependence: Advised on tobacco cessation, on nicotine patch DVT prophylaxis: bilateral SCDs Lars Rockwell MD Jun 17, 2016 10:43
[2016-06-17] MEDS ORDERED: CLINDAMYCIN INJ 600 MG in SODIUM CHLORIDE 0.9% INJ 100 ML IV ONE (11:00)
[2016-06-17] MEDS ORDERED: PROPOFOL 200 MG/20 ML AMP IV ONE (12:00)
[2016-06-17] MEDS ORDERED: PHENYLEPH/NS 1000 MCG/10 ML SYR IV ONE (12:00)
[2016-06-17] MEDS ORDERED: ePHEDrine/NS 50 MG/5 ML SYR IV ONE (12:00)
[2016-06-17] MEDS ORDERED: LACTATED RINGER'S 1000 ML INJ 1,000 ML IV ONE (12:00)
--- NOTE | 2016-06-17 14:01 | HHI.PR ---
Subjective Subjective Notes no acute issues, attempted PO and pt developed significant pain, no bm, small gas Objective Vitals/I&O Vital Signs Date Time Temp Pulse Resp B/P Pulse Ox O2 Delivery O2 Flow Rate FiO2 06/17/16 12:05 97.5 60 18 162/91 95 06/17/16 07:15 Room Air 2.00 21 Cardiovascular: Regular Lungs: Clear Abdomen: Other (soft +ttp, well healed surgical scars) A/P Assessment and Plan SBO PLAN OR today for dx lap, lap HALEY, Possible bowel resection discussed with patient in detail NPO Luis Medrano MD Jun 17, 2016 14:01
[2016-06-17] MEDS ORDERED: BUPIVACAINE/EPINEPHRINE 0.25% PF 30 ML VIAL ONE (16:18)
[2016-06-17] MEDS ORDERED: ONDANSETRON HCL 4 MG/2 ML VIAL ONE (16:24)
[2016-06-17] MEDS ORDERED: FAMOTIDINE 20 MG/2 ML VIAL ONE (16:24)
[2016-06-17] MEDS ORDERED: ACETAMINOPHEN 1000 MG/100 ML VIAL IV ONE (16:24)
[2016-06-17] MEDS ORDERED: HYDROmorphone HCL PF 2 MG/ML VIAL ONE (16:24)
[2016-06-17] MEDS ORDERED: DEXAMETHASONE SOD PHOS 4 MG/ML VIAL ONE (16:32)
--- NOTE | 2016-06-17 19:41 | HHI.PR ---
Immediate Post Op Note Procedure Date: Jun 17, 2016 Pre Op Diagnosis: sbo Post Op Diagnosis: sbo, multiple adhesions Surgeon: Luis Medrano MD Patient Services Specialist(s): see or sheet Procedure: dx lap, lap ninfa, repair of enterotomy Findings: multiple adhesions, bowel obstruction in the RLQ Complications: none Specimen(s) removed: none Estimated blood loss: 25cc Anesthesia: General Drains: RODRIGUEZ IVF (1500) Patient to: PACU Patient Condition: Good Luis Medrano MD Jun 17, 2016 19:41
[2016-06-17] MEDS ORDERED: DO NOT ADM ANY ANTICOAGULANT DRUGS XX PRN (20:00)
[2016-06-17] MEDS: 1/2 NS + KCL 20 MEQ INJ 1,000 ML IV SCH (20:00)
[2016-06-17] MEDS ORDERED: MIDAZOLAM HCL 2 MG/2 ML VIAL ONE (20:11)
[2016-06-17] MEDS ORDERED: fentaNYL CITRATE 250 MCG/5 ML AMP ONE (20:12)
[2016-06-17] MEDS ORDERED: LABETALOL HCL 100 MG/20 ML VIAL ONE (21:01)
[2016-06-18] VITALS (8 sets, daily range): BP systolic 106–154; BP diastolic 60–83; PULSE 72–85; RESP 16–20; TEMP 97.8–98.8; O2SAT 90–94
[2016-06-18] MEDS: SODIUM CHLOR 0.9% 1000 ML INJ 1,000 ML IV SCH ×3 (01:00→20:25)
[2016-06-18] MEDS: metroNIDAZOLE 500 MG INJ 100 ML IV SCH ×3 (01:47→16:09)
[2016-06-18] MEDS: 1/2 NS + KCL 20 MEQ INJ 1,000 ML IV SCH ×3 (01:48→19:55)
[2016-06-18] MEDS: HYDROmorphone HCL PF 1 MG/ML VIAL IV PUSH PRN ×4 (05:19→20:26)
[2016-06-18 07:22] LABS: BASOPHIL # 0.1 TH/MM3 (0-0.2); BASOPHIL % 0.6 % (0.0-2.0); EOSINOPHIL % 0.1 % (0.0-4.0); HEMATOCRIT 44.7 % (35.0-46.0); HEMO FLAGS DIFF FINAL; LYMPHOCYTE # 0.5 TH/MM3 (1.0-4.8); MEAN CORPUSCULAR HEMOGLOBIN 29.6 PG (27.0-34.0); MONO % 6.9 % (0.0-8.0); NEUT % 88.4 % (16.0-70.0); PLATELET COUNT 163 TH/MM3 (150-450); RED BLOOD COUNT 5.14 MIL/MM3 (4.00-5.30); RED CELL DISTRIBUTION WIDTH 13.1 % (11.6-17.2); WHITE BLOOD COUNT 12.5 TH/MM3 (4.0-11.0)
[2016-06-18 07:47] LABS: BICARBONATE 25.3 MEQ/L (21.0-32.0); POTASSIUM 3.8 MEQ/L (3.5-5.1)
[2016-06-18] MEDS: METOPROLOL SUCCINATE 50 MG EXTENDED RELEASE TAB PO SCH (09:00)
[2016-06-18] MEDS: NICOTINE 21 MG/24 HR PATCH TD SCH (09:00)
[2016-06-18] MEDS: SODIUM CHLORIDE 0.9% FLUSH 5 ML FLUSH FLUSH SCH ×2 (09:00→20:24)
[2016-06-18] MEDS: REMOVE OLD NICOTINE PATCH TD SCH (09:00)
[2016-06-18] MEDS: RESP: ALBUTEROL 2.5 MG/IPRATROPIUM 0.5 MG NEB (SCH) NEB ×2 (09:02→12:49)
--- NOTE | 2016-06-18 10:07 | HHI.PR ---
Subjective Remarks Follow-up distal small bowel obstruction 06/15/16-patient seen and examined; NG tube in place and reports some improvement of abdominal pain ; follow-up flat and an upright this morning without any evidence of obstruction. 06/16/16-patient seen and examined, NG-tube was accidentally removed last night. Patient reports some improvement of bowel movement but states it doesn' t still feel right and states she is only past flatus 1 06/17/16-patient seen and examined; stills complaints of abdominal pain and states she did not tolerated PO last night 06/18/16-patient seen and examined; she is status post dx lap, lap ninfa, repair of enterotomy and complains currently of abdominal pain. Currently nothing by mouth, NG tube in place. by the bedside Objective Vitals Vital Signs Date Time Temp Pulse Resp B/P Pulse Ox O2 Delivery O2 Flow Rate FiO2 06/18/16 09:07 92 Nasal Cannula 3.00 06/18/16 08:00 98.1 82 20 117/60 90 06/18/16 07:10 Nasal Cannula 2.00 06/18/16 04:00 98.8 80 18 145/83 93 06/18/16 00:06 98.1 73 18 154/73 94 06/17/16 22:00 Nasal Cannula 2.00 06/17/16 21:40 97.4 74 20 179/98 93 06/17/16 21:00 74 16 165/99 96 Nasal Cannula 4 06/17/16 20:45 75 16 171/112 96 Nasal Cannula 4 06/17/16 20:30 70 16 154/94 95 Nasal Cannula 4 06/17/16 20:25 Room Air 2.00 21 06/17/16 20:15 73 16 152/94 92 Nasal Cannula 4 06/17/16 19:55 97.9 79 16 161/94 93 Nasal Cannula 4 06/17/16 16:07 98.0 68 19 165/84 96 06/17/16 12:05 97.5 60 18 162/91 95 I/O 06/17/16 06/17/16 06/17/16 06/18/16 06/18/16 06/18/16 07:00 15:00 23:00 07:00 15:00 23:00 Intake Total 240 ml 360 ml 1500 ml Output Total 785 ml 10 ml Balance 240 ml 360 ml 715 ml -10 ml Intake Oral 240 ml 360 ml Other 1500 ml Output Urine Total 500 ml Drainage Total 60 ml 10 ml Estimated Blood Loss 75 ml Other 150 ml # Voids 3 3 # Bowel Movements 0 1 0 Result Diagram: 06/18/16 0641 06/18/16 0641 Imaging Last Impressions Abdomen X-Ray 06/17/16 0600 Signed Impressions: Service Date/Time: Friday, June 17, 2016 08:28 - CONCLUSION: 1. Continued findings of small bowel ileus. There has been no significant change when compared to the prior exam. Mitchell Sorenson MD Abdomen/Pelvis CT 06/14/16 0555 Signed Impressions: Service Date/Time: Tuesday, June 14, 2016 06:21 - CONCLUSION: Distal small bowel obstruction. Carter Parikh MD Objective Remarks GENERAL: NAD with NG tube in place SKIN: Warm and dry. HEAD: Normocephalic. EYES: No scleral icterus. No injection or drainage. NECK: Supple, trachea midline. No JVD or lymphadenopathy. CARDIOVASCULAR: Regular rate and rhythm without murmurs, gallops, or rubs. RESPIRATORY: Breath sounds equal bilaterally. No accessory muscle use. GASTROINTESTINAL: Abdomen soft, mildly tender, nondistended. Incision clean/dry /intact. Hypoactive bowel sounds MUSCULOSKELETAL: No cyanosis, or edema. BACK: Nontender without obvious deformity. No CVA tenderness. Procedures Status post dx lap, lap ninfa, repair of enterotomy 06/17/16 A/P Problem List: (1) Small bowel obstruction ICD Code: K56.69 Status: Resolved (2) Hyperlipidemia ICD Code: E78.5 Status: Chronic (3) Tobacco abuse ICD Code: Z72.0 Status: Chronic (4) COPD (chronic obstructive pulmonary disease) ICD Code: J44.9 Status: Chronic (5) Nicotine dependence ICD Code: F17.200 Status: Chronic (6) Hypertension ICD Code: I10 Status: Chronic Assessment and Plan 61 year-old female with Distal small bowel obstruction/ileus: CT abdomen with finding of distal small bowel obstruction. Status post dx lap, lap ninfa, repair of enterotomy 06/17/16. Currently nothing by mouth with NG tube in place and Continue with analgesic/ antiemetic and Cipro and Flagyl IV. Appreciate input from general surgery. Leukocytosis: Resolved. Hypertension: Continue Lopressor, Vasotec when necessary History of COPD: Chest x-ray without any cardio pulmonary disease, continue Symbicort, DuoNeb when necessary. Advised on tobacco cessation GERD: Continue PPI Hypokalemia: Resolved status post replacement Nicotine dependence: Advised on tobacco cessation, on nicotine patch DVT prophylaxis: bilateral SCDs Lars Rockwell MD Jun 18, 2016 10:07
[2016-06-18] MEDS: CIPROFLOXACIN 400 MG PREMIX 200 ML IV SCH ×2 (10:36→20:24)
[2016-06-18] MEDS: PANTOPRAZOLE SODIUM 40 MG VIAL IV PUSH SCH (10:40)
[2016-06-18] MEDS: ONDANSETRON HCL 4 MG/2 ML VIAL IVP PRN (16:30)
--- NOTE | 2016-06-18 21:19 | HHI.PR ---
Subjective Subjective Notes s/p dx lap, stable over night Objective Vitals/I&O Vital Signs Date Time Temp Pulse Resp B/P Pulse Ox O2 Delivery O2 Flow Rate FiO2 06/18/16 20:00 97.8 85 20 106/68 94 06/18/16 09:07 Nasal Cannula 3.00 06/17/16 20:25 21 Labs Laboratory Tests Test 06/18/16 06:41 White Blood Count 12.5 Red Blood Count 5.14 Hemoglobin 15.2 Hematocrit 44.7 Mean Corpuscular Volume 87.0 Mean Corpuscular Hemoglobin 29.6 Mean Corpuscular Hemoglobin 34.0 Concent Red Cell Distribution Width 13.1 Platelet Count 163 Mean Platelet Volume 9.8 Neutrophils (%) (Auto) 88.4 Lymphocytes (%) (Auto) 4.0 Monocytes (%) (Auto) 6.9 Eosinophils (%) (Auto) 0.1 Basophils (%) (Auto) 0.6 Neutrophils # (Auto) 11.0 Lymphocytes # (Auto) 0.5 Monocytes # (Auto) 0.9 Eosinophils # (Auto) 0.0 Basophils # (Auto) 0.1 CBC Comment DIFF FINAL Differential Comment Sodium Level 137 Potassium Level 3.8 Chloride Level 102 Carbon Dioxide Level 25.3 Anion Gap 10 Blood Urea Nitrogen 5 Creatinine 0.79 Estimat Glomerular Filtration 74 Rate Random Glucose 117 Calcium Level 8.4 Cardiovascular: Regular Lungs: Clear Abdomen: Non-distended, Post-op tenderness Extremities: No edema, Perfused, SCD's on A/P Assessment and Plan 61yo female s/p dx lap, HALEY, stable. pain not controlled, increase dilaudid continue NG, IVF Bora Choudhary MD Jun 18, 2016 21:19
[2016-06-19] VITALS (8 sets, daily range): BP systolic 104–125; BP diastolic 56–90; PULSE 78–94; RESP 18–22; TEMP 97.4–98.4; O2SAT 93–96
[2016-06-19] MEDS: HYDROmorphone HCL PF 1 MG/ML VIAL IV PUSH PRN ×5 (01:11→21:33)
[2016-06-19] MEDS: metroNIDAZOLE 500 MG INJ 100 ML IV SCH ×3 (01:11→17:12)
[2016-06-19] MEDS: SODIUM CHLOR 0.9% 1000 ML INJ 1,000 ML IV SCH (04:23)
[2016-06-19] MEDS: 1/2 NS + KCL 20 MEQ INJ 1,000 ML IV SCH ×3 (04:23→19:45)
[2016-06-19] MEDS: SODIUM CHLORIDE 0.9% FLUSH 5 ML FLUSH FLUSH SCH ×2 (08:53→21:38)
[2016-06-19] MEDS: CIPROFLOXACIN 400 MG PREMIX 200 ML IV SCH ×2 (08:54→21:33)
[2016-06-19] MEDS: PANTOPRAZOLE SODIUM 40 MG VIAL IV PUSH SCH (08:54)
[2016-06-19] MEDS: METOPROLOL SUCCINATE 50 MG EXTENDED RELEASE TAB PO SCH (08:54)
[2016-06-19] MEDS: NICOTINE 21 MG/24 HR PATCH TD SCH (08:55)
[2016-06-19] MEDS: REMOVE OLD NICOTINE PATCH TD SCH (08:55)
[2016-06-19 09:46] LABS: AUTOMATED NEUTROPHIL # 10.9 TH/MM3 (1.8-7.7); BASOPHIL % 0.1 % (0.0-2.0); EOSINOPHIL # 0.2 TH/MM3 (0-0.4); EOSINOPHIL % 1.5 % (0.0-4.0); HEMO FLAGS DIFF FINAL; LYMPH % 4.1 % (9.0-44.0); LYMPHOCYTE # 0.5 TH/MM3 (1.0-4.8); MEAN CELL VOLUME 89.2 FL (80.0-100.0); MEAN CORPUSCULAR HEMOGLOBIN 29.5 PG (27.0-34.0); MEAN CORPUSCULAR HGB CONC 33.1 % (32.0-36.0); MONO % 10.3 % (0.0-8.0); PLATELET COUNT 139 TH/MM3 (150-450); RED BLOOD COUNT 4.93 MIL/MM3 (4.00-5.30); RED CELL DISTRIBUTION WIDTH 13.1 % (11.6-17.2); WHITE BLOOD COUNT 12.9 TH/MM3 (4.0-11.0)
[2016-06-19 10:04] LABS: BICARBONATE 22.5 MEQ/L (21.0-32.0); POTASSIUM 4.1 MEQ/L (3.5-5.1)
--- NOTE | 2016-06-19 11:14 | HHI.PR ---
Subjective Remarks Follow-up distal small bowel obstruction 06/15/16-patient seen and examined; NG tube in place and reports some improvement of abdominal pain ; follow-up flat and an upright this morning without any evidence of obstruction. 06/16/16-patient seen and examined, NG-tube was accidentally removed last night. Patient reports some improvement of bowel movement but states it doesn' t still feel right and states she is only past flatus 1 06/17/16-patient seen and examined; stills complaints of abdominal pain and states she did not tolerated PO last night 06/18/16-patient seen and examined; she is status post dx lap, lap ninfa, repair of enterotomy and complains currently of abdominal pain. Currently nothing by mouth, NG tube in place. by the bedside 06/19/16-patient seen and examined; complains of abdominal pain. NG tube in place and still nothing by mouth. Objective Vitals Vital Signs Date Time Temp Pulse Resp B/P Pulse Ox O2 Delivery O2 Flow Rate FiO2 06/19/16 08:53 18 06/19/16 08:00 98.0 80 20 114/69 94 06/19/16 04:00 98.1 78 22 104/57 93 06/19/16 00:47 93 Nasal Cannula 3.00 06/19/16 00:00 97.4 81 20 106/90 94 06/18/16 20:00 97.8 85 20 106/68 94 06/18/16 20:00 79 06/18/16 20:00 Nasal Cannula 2.00 06/18/16 16:00 98.3 79 16 121/61 93 06/18/16 12:00 98.4 80 16 127/67 93 I/O 06/18/16 06/18/16 06/18/16 06/19/16 06/19/16 06/19/16 07:00 15:00 23:00 07:00 15:00 23:00 Intake Total 1013 ml 1189 ml Output Total 10 ml 800 ml 30 ml 110 ml Balance -10 ml -800 ml 983 ml 1079 ml IV Total 813 ml 1189 ml Tube Irrigant 200 ml Output Urine Total 800 ml Gastric Drainage Total 100 ml Drainage Total 10 ml 30 ml 10 ml # Voids 2 1 Result Diagram: 06/19/1640 06/19/1640 Objective Remarks GENERAL: NAD with NG tube in place SKIN: Warm and dry. HEAD: Normocephalic. EYES: No scleral icterus. No injection or drainage. NECK: Supple, trachea midline. No JVD or lymphadenopathy. CARDIOVASCULAR: Regular rate and rhythm without murmurs, gallops, or rubs. RESPIRATORY: Breath sounds equal bilaterally. No accessory muscle use. GASTROINTESTINAL: Abdomen soft, mildly tender, nondistended. Incision clean/dry /intact. Hypoactive bowel sounds MUSCULOSKELETAL: No cyanosis, or edema. BACK: Nontender without obvious deformity. No CVA tenderness. Procedures Status post dx lap, lap ninfa, repair of enterotomy 06/17/16 A/P Problem List: (1) Small bowel obstruction ICD Code: K56.69 Status: Resolved (2) Hyperlipidemia ICD Code: E78.5 Status: Chronic (3) Tobacco abuse ICD Code: Z72.0 Status: Chronic (4) COPD (chronic obstructive pulmonary disease) ICD Code: J44.9 Status: Chronic (5) Nicotine dependence ICD Code: F17.200 Status: Chronic (6) Hypertension ICD Code: I10 Status: Chronic Assessment and Plan 61 year-old female with Distal small bowel obstruction/ileus: CT abdomen with finding of distal small bowel obstruction. Status post dx lap, lap ninfa, repair of enterotomy 06/17/16. Continue current treatment including nothing by mouth with NG tube in place and Continue with analgesic/antiemetic and Cipro and Flagyl IV. Appreciate input from general surgery. Leukocytosis: Resolved. Hypertension: Continue Lopressor, Vasotec when necessary History of COPD: No exacerbation and continue Symbicort, DuoNeb when necessary. Advised on tobacco cessation GERD: Continue PPI Hypokalemia: Resolved status post replacement Nicotine dependence: Advised on tobacco cessation, on nicotine patch DVT prophylaxis: bilateral SCDs Lars Rockwell MD Jun 19, 2016 11:14
--- NOTE | 2016-06-19 11:29 | HHI.PR ---
Subjective Subjective Notes sore, no bm or flatus yet, has not been OOB Objective Vitals/I&O Vital Signs Date Time Temp Pulse Resp B/P Pulse Ox O2 Delivery O2 Flow Rate FiO2 06/19/16 08:53 18 06/19/16 08:00 98.0 80 114/69 94 06/19/16 00:47 Nasal Cannula 3.00 06/17/16 20:25 21 Labs Laboratory Tests Test 06/19/16 08:40 White Blood Count 12.9 Red Blood Count 4.93 Hemoglobin 14.5 Hematocrit 44.0 Mean Corpuscular Volume 89.2 Mean Corpuscular Hemoglobin 29.5 Mean Corpuscular Hemoglobin 33.1 Concent Red Cell Distribution Width 13.1 Platelet Count 139 Mean Platelet Volume 9.6 Neutrophils (%) (Auto) 84.0 Lymphocytes (%) (Auto) 4.1 Monocytes (%) (Auto) 10.3 Eosinophils (%) (Auto) 1.5 Basophils (%) (Auto) 0.1 Neutrophils # (Auto) 10.9 Lymphocytes # (Auto) 0.5 Monocytes # (Auto) 1.3 Eosinophils # (Auto) 0.2 Basophils # (Auto) 0.0 CBC Comment DIFF FINAL Differential Comment Sodium Level 135 Potassium Level 4.1 Chloride Level 103 Carbon Dioxide Level 22.5 Anion Gap 10 Blood Urea Nitrogen 9 Creatinine 0.79 Estimat Glomerular Filtration 74 Rate Random Glucose 102 Calcium Level 8.1 Cardiovascular: Regular Lungs: Clear Abdomen: Post-op tenderness Narrative Exam abdomen distended and quiet Wound Wound : Wound Location: Abdomen Appearance: Clean & Dry A/P Assessment and Plan sp lap ninfa, repair small bowel no bowel function yet NG still draining about 500 bilious fluid - leave on suction for now RODRIGUEZ clear labs ok Lewis Lopez MD Jun 19, 2016 11:29
[2016-06-20] VITALS (11 sets, daily range): BP systolic 127–176; BP diastolic 64–94; PULSE 77–94; RESP 18; TEMP 97.4–98.4; O2SAT 91–98
[2016-06-20] MEDS: HYDROmorphone HCL PF 1 MG/ML VIAL IV PUSH PRN ×6 (01:24→23:43)
[2016-06-20] MEDS: metroNIDAZOLE 500 MG INJ 100 ML IV SCH ×3 (01:25→17:24)
[2016-06-20] MEDS: 1/2 NS + KCL 20 MEQ INJ 1,000 ML IV SCH (03:45)
--- NOTE | 2016-06-20 08:55 | HHI.PR ---
Subjective Remarks Follow-up distal small bowel obstruction 06/15/16-patient seen and examined; NG tube in place and reports some improvement of abdominal pain ; follow-up flat and an upright this morning without any evidence of obstruction. 06/16/16-patient seen and examined, NG-tube was accidentally removed last night. Patient reports some improvement of bowel movement but states it doesn' t still feel right and states she is only past flatus 1 06/17/16-patient seen and examined; stills complaints of abdominal pain and states she did not tolerated PO last night 06/18/16-patient seen and examined; she is status post dx lap, lap ninfa, repair of enterotomy and complains currently of abdominal pain. Currently nothing by mouth, NG tube in place. by the bedside 06/19/16-patient seen and examined; complains of abdominal pain. NG tube in place and still nothing by mouth. 06/20/16-patient seen and examined, report significant improvement of abdominal pain however no flatus or BM yet. Afebrile. Currently nothing by mouth with NG tube in place with minimal output. States she was up and walked/ambulated yesterday Objective Vitals Vital Signs Date Time Temp Pulse Resp B/P Pulse Ox O2 Delivery O2 Flow Rate FiO2 06/20/16 06:00 98.1 83 18 130/64 92 06/20/16 00:00 97.6 85 18 138/65 98 06/19/16 21:20 Nasal Cannula 2.00 06/19/16 20:00 94 06/19/16 20:00 98.4 87 18 119/75 96 06/19/16 17:12 20 06/19/16 16:00 97.9 87 20 125/76 93 06/19/16 14:09 94 Nasal Cannula 2.00 06/19/16 13:30 94 Nasal Cannula 3.00 06/19/16 12:00 98.1 83 20 113/56 93 I/O 06/19/16 06/19/16 06/19/16 06/20/16 06/20/16 06/20/16 07:00 15:00 23:00 07:00 15:00 23:00 Intake Total 1189 ml 998 ml 536 ml 1071 ml Output Total 110 ml 900 ml 700 ml 55 ml Balance 1079 ml 98 ml -164 ml 1016 ml Intake Oral 0 ml 120 ml IV Total 1189 ml 998 ml 536 ml 951 ml Output Urine Total 900 ml 600 ml Gastric Drainage Total 100 ml 100 ml 50 ml Drainage Total 10 ml 5 ml # Voids 5 # Bowel Movements 0 0 0 Result Diagram: 06/19/1683906/19/16839 Objective Remarks GENERAL: NAD with NG tube in place SKIN: Warm and dry. HEAD: Normocephalic. EYES: No scleral icterus. No injection or drainage. NECK: Supple, trachea midline. No JVD or lymphadenopathy. CARDIOVASCULAR: Regular rate and rhythm without murmurs, gallops, or rubs. RESPIRATORY: Breath sounds equal bilaterally. No accessory muscle use. GASTROINTESTINAL: Abdomen soft, mildly tender, nondistended. Incision clean/dry /intact. Hypoactive bowel sounds MUSCULOSKELETAL: No cyanosis, or edema. BACK: Nontender without obvious deformity. No CVA tenderness. Procedures Status post dx lap, lap ninfa, repair of enterotomy 06/17/16 A/P Problem List: (1) Small bowel obstruction ICD Code: K56.69 Status: Resolved (2) Hyperlipidemia ICD Code: E78.5 Status: Chronic (3) Tobacco abuse ICD Code: Z72.0 Status: Chronic (4) COPD (chronic obstructive pulmonary disease) ICD Code: J44.9 Status: Chronic (5) Nicotine dependence ICD Code: F17.200 Status: Chronic (6) Hypertension ICD Code: I10 Status: Chronic Assessment and Plan 61 year-old female with Distal small bowel obstruction/ileus: CT abdomen with finding of distal small bowel obstruction. Status post dx lap, lap ninfa, repair of enterotomy 06/17/16. Improving however no fluctuance or BM yet. Continue current treatment including nothing by mouth with NG tube in place and Continue with analgesic/ antiemetic and Cipro and Flagyl IV. Appreciate input from general surgery. Leukocytosis: Resolved. Hypertension: Continue Lopressor, Vasotec when necessary History of COPD: No exacerbation and continue Symbicort, DuoNeb when necessary. Advised on tobacco cessation GERD: Continue PPI Hypokalemia: Resolved status post replacement Nicotine dependence: Advised on tobacco cessation, on nicotine patch DVT prophylaxis: bilateral SCDs Lars Rockwell MD Jun 20, 2016 08:55
[2016-06-20] MEDS: REMOVE OLD NICOTINE PATCH TD SCH (09:00)
[2016-06-20] MEDS: METOPROLOL SUCCINATE 50 MG EXTENDED RELEASE TAB PO SCH (09:42)
[2016-06-20] MEDS: NICOTINE 21 MG/24 HR PATCH TD SCH (09:42)
[2016-06-20] MEDS: PANTOPRAZOLE SODIUM 40 MG VIAL IV PUSH SCH (09:42)
[2016-06-20] MEDS: SODIUM CHLORIDE 0.9% FLUSH 5 ML FLUSH FLUSH SCH ×2 (09:43→21:00)
[2016-06-20] MEDS: CIPROFLOXACIN 400 MG PREMIX 200 ML IV SCH ×2 (09:43→19:51)
--- NOTE | 2016-06-20 11:08 | HHI.PR ---
Subjective Subjective Notes Resting in bed Has not passed gas yet Objective Vitals/I&O Vital Signs Date Time Temp Pulse Resp B/P Pulse Ox O2 Delivery O2 Flow Rate FiO2 06/20/16 08:05 97.8 80 18 147/72 91 06/19/16 21:20 Nasal Cannula 2.00 06/17/16 20:25 21 Cardiovascular: Regular Lungs: Clear Abdomen: Other (lap sites with minimal bloody drainage; RODRIGUEZ with SS fluid in bulb; mildly distended ) Extremities: No edema Narrative Exam NGT in place A/P Assessment and Plan 61 year old female with SBO -POD3 dx lap; HALEY for SBO -Continue NGT to suction until bowel function returns -OOB and mobilize -Discussed with Dr. Medrano Attending Statement patient seen at bedside await return of bowel function discussed with at bedside may need repeat ct for further evaluation Attestation The exam, history, and the medical decision-making described in the above note were completed with the assistance of the mid-level provider. I reviewed and agree with the findings presented. I attest that I had a [id number] encounter with the patient on the same day, and personally performed and documented my assessment and findings in the medical record. Viridiana Kemp Jun 20, 2016 11:08 Luis Medrano MD Jun 29, 2016 19:43
[2016-06-20 15:02] LABS: MEAN CELL VOLUME 88.1 FL (80.0-100.0); MEAN CORPUSCULAR HEMOGLOBIN 29.8 PG (27.0-34.0); MEAN CORPUSCULAR HGB CONC 33.9 % (32.0-36.0); PLATELET COUNT 178 TH/MM3 (150-450); RED BLOOD COUNT 5.22 MIL/MM3 (4.00-5.30); RED CELL DISTRIBUTION WIDTH 12.8 % (11.6-17.2); WHITE BLOOD COUNT 16.9 TH/MM3 (4.0-11.0)
[2016-06-20 15:03] LABS: REVIEW FLAG FINAL
[2016-06-20] MEDS ORDERED: SODIUM CHLOR 0.9% 1000 ML INJ 1,000 ML IV ONE (16:45)
[2016-06-20] MEDS: FLUCONAZOLE 400 MG PREMIX BAG 200 ML IV SCH (17:23)
[2016-06-20] MEDS ORDERED: DIATRIZOATE MEGLUM/DIATRIZOATE SOD 9 ML CUP PO ONE (18:00)
[2016-06-20] MEDS ORDERED: IOHEXOL 350 MG/ML 10 ML VIAL (for RAD DIAG) IV ONE (18:47)
--- NOTE | 2016-06-20 19:14 | RADRPT ---
EXAM DATE/TIME: 06/20/2016 18:42 [facility] COMPARISON: CT ABDOMEN & PELVIS W CONTRAST, June 14, 2016, 6:21. INDICATIONS : Abdomen pain; small bowel obstrustion. IV CONTRAST: 100 cc Omnipaque 350 (iohexol) IV ORAL CONTRAST: No oral contrast ingested. RADIATION DOSE: 15.24 CTDIvol (mGy) MEDICAL HISTORY : Gastroesophageal reflux disease. SURGICAL HISTORY : Hysterectomy. Appendectomy. section. ENCOUNTER: Initial ACUITY: 1 day PAIN SCALE: 5/10 LOCATION: Bilateral abdomen. TECHNIQUE: Volumetric scanning of the abdomen and pelvis was performed. Using automated exposure control and ad justment of the mA and/or kV according to patient size, radiation dose was kept as low as reasonably achievable to obtain optimal diagnostic quality images. FINDINGS: Comparison is June 14, preoperative film. There is dependent atelectasis or consolidation at both lung bases. No significant pleural effusion on the right. Tiny left pleural effusion. Small hiatal he rnia. Fatty liver present. The spleen, adrenals, kidneys and pancreas unremarkable. Previous cholecystectom y. NG tip in stomach. Small bowel is dilated proximally to about 3.4 cm with distal decompression characteristic of at leas t a partial small bowel obstruction. There is a drain extending through the right anterior abdominal wall and ending in the left hemipelvis. No fluid around the drain. In the deep pelvis in the cul-de-sac there is a loculated 5.2 cm fluid collection without associated loculated air. There is colonic diverticulosis without definite evidence for diverticulitis. CONCLUSION: 1. Small bowel loops remain dilated to 3.4 cm most characteristic of an early or partial small bowel obstruction. Angulated small bowel loops in the lower pelvis suggest adhesions. 2. Loculated 5.2 cm fluid collection in the cul-de-sac without loculated air. 3. Dependent atelectasis or consolidation at both lung bases. Trace left pleural fluid. 4. No free air. Glenn Dougherty MD on June 20, 2016 at 19:02 Board Certified Radiologist. This report was verified electronically.
[2016-06-20] MEDS: ONDANSETRON HCL 4 MG/2 ML VIAL IVP PRN (19:54)
[2016-06-20] MEDS: MAGNESIUM CITRATE SOLN 300 ML BTL PO SCH (22:50)
[2016-06-20] MEDS: BISACODYL EC 5 MG TABEC PO SCH (22:50)
--- NOTE | 2016-06-20 23:06 | EKG ---
Date Performed: 06/17/2016 Time Performed: 15:20:56 PTAGE: 61 years EKG: Sinus bradycardia Normal ECG except for rate PREVIOUS TRACING : 06/14/2016 05.08 Compared to prior tracing no significant change DOCTOR: Karlo Molina Interpretating Date/Time 06/20/2016 23:05:10
[2016-06-20 23:17] LABS: BLOOD, URINE NEG (NEG); GLUCOSE,URINE NEG (NEG); KETONE, URINE 150 mg/dL (NEG); MUCUS URINE FEW /lpf (OCC); NITRITE,URINE NEG (NEG); PH, URINE 5.5 (5.0-8.5); SQUAMOUS EPITHELIAL CELL URINE <1 /hpf (0-5); URINE COLOR YELLOW (YELLW/STRAW)
[2016-06-20 23:20] LABS: COMMENT (UR) CULT NOT INDICATED; CULTURE IF INDICATED CULT NOT INDICATED
[2016-06-21] VITALS (9 sets, daily range): BP systolic 139–179; BP diastolic 60–93; PULSE 76–95; RESP 18–22; TEMP 97.3–98.4; O2SAT 92–96
[2016-06-21] MEDS: MAGNESIUM CITRATE SOLN 300 ML BTL PO SCH
[2016-06-21] MEDS: BISACODYL EC 5 MG TABEC PO SCH (00:30)
[2016-06-21] MEDS: NS + KCL 20 MEQ INJ 1,000 ML IV SCH ×4 (00:56→21:00)
[2016-06-21] MEDS: metroNIDAZOLE 500 MG INJ 100 ML IV SCH ×3 (02:00→17:22)
[2016-06-21] MEDS: ONDANSETRON HCL 4 MG/2 ML VIAL IVP PRN (04:14)
[2016-06-21] MEDS: HYDROmorphone HCL PF 1 MG/ML VIAL IV PUSH PRN ×5 (04:15→20:56)
[2016-06-21 07:22] LABS: AUTOMATED NEUTROPHIL # 10.1 TH/MM3 (1.8-7.7); BASOPHIL % 0.2 % (0.0-2.0); EOSINOPHIL # 0.1 TH/MM3 (0-0.4); EOSINOPHIL % 0.8 % (0.0-4.0); HEMATOCRIT 43.8 % (35.0-46.0); HEMO FLAGS DIFF FINAL; LYMPH % 4.6 % (9.0-44.0); LYMPHOCYTE # 0.5 TH/MM3 (1.0-4.8); MEAN CELL VOLUME 87.9 FL (80.0-100.0); MEAN CORPUSCULAR HGB CONC 34.1 % (32.0-36.0); MONO % 9.7 % (0.0-8.0); NEUT % 84.7 % (16.0-70.0); PLATELET COUNT 188 TH/MM3 (150-450); RED BLOOD COUNT 4.98 MIL/MM3 (4.00-5.30); RED CELL DISTRIBUTION WIDTH 12.8 % (11.6-17.2)
[2016-06-21 07:58] LABS: BICARBONATE 21.6 MEQ/L (21.0-32.0)
[2016-06-21] MEDS: NICOTINE 21 MG/24 HR PATCH TD SCH (08:07)
[2016-06-21] MEDS: METOPROLOL SUCCINATE 50 MG EXTENDED RELEASE TAB PO SCH (08:07)
[2016-06-21] MEDS: PANTOPRAZOLE SODIUM 40 MG VIAL IV PUSH SCH (08:07)
[2016-06-21] MEDS: SODIUM CHLORIDE 0.9% FLUSH 5 ML FLUSH FLUSH SCH ×2 (08:07→20:57)
[2016-06-21] MEDS: REMOVE OLD NICOTINE PATCH TD SCH (08:07)
[2016-06-21] MEDS: CIPROFLOXACIN 400 MG PREMIX 200 ML IV SCH ×2 (08:08→20:58)
[2016-06-21] MEDS ORDERED: DIATRIZOATE MEGLUM/DIATRIZOATE SOD 120 ML BTL (for RAD DIAG) NG ONE (09:15)
--- NOTE | 2016-06-21 14:12 | HHI.PR ---
Subjective Remarks Follow-up distal small bowel obstruction 06/15/16-patient seen and examined; NG tube in place and reports some improvement of abdominal pain ; follow-up flat and an upright this morning without any evidence of obstruction. 06/16/16-patient seen and examined, NG-tube was accidentally removed last night. Patient reports some improvement of bowel movement but states it doesn' t still feel right and states she is only past flatus 1 06/17/16-patient seen and examined; stills complaints of abdominal pain and states she did not tolerated PO last night 06/18/16-patient seen and examined; she is status post dx lap, lap ninfa, repair of enterotomy and complains currently of abdominal pain. Currently nothing by mouth, NG tube in place. by the bedside 06/19/16-patient seen and examined; complains of abdominal pain. NG tube in place and still nothing by mouth. 06/20/16-patient seen and examined, report significant improvement of abdominal pain however no flatus or BM yet. Afebrile. Currently nothing by mouth with NG tube in place with minimal output. States she was up and walked/ambulated yesterday 06/21/16-patient seen and examined and still with abdominal pain, currently nothing by mouth with NG tube in place. CT abdomen/pelvis performed last night due to severe worsening abdominal pain Objective Vitals Vital Signs Date Time Temp Pulse Resp B/P Pulse Ox O2 Delivery O2 Flow Rate FiO2 06/21/16 12:25 Nasal Cannula 2.00 21 06/21/16 08:40 96 Nasal Cannula 2.00 06/21/16 05:01 98.1 88 20 164/88 96 06/21/16 00:30 97.5 89 20 179/93 95 06/20/16 22:04 96 Nasal Cannula 2.00 06/20/16 20:47 98.4 94 18 176/94 95 06/20/16 20:00 86 06/20/16 19:45 Nasal Cannula 2.00 06/20/16 17:30 77 06/20/16 16:04 98.4 91 18 148/70 92 I/O 06/20/16 06/20/16 06/20/16 06/21/16 06/21/16 06/21/16 07:00 15:00 23:00 07:00 15:00 23:00 Intake Total 1071 ml 0 ml 1777 ml Output Total 55 ml 5 ml 510 ml Balance 1016 ml 0 ml -5 ml 1267 ml Intake Oral 120 ml 0 ml 300 ml IV Total 951 ml 1477 ml Gastric Drainage Total 50 ml 500 ml Drainage Total 5 ml 5 ml 10 ml # Voids 5 4 0 2 # Bowel Movements 0 0 0 0 Result Diagram: 06/21/16 0630 06/21/16 0630 Imaging Last Impressions Abdomen/Pelvis CT 06/20/16 0000 Signed Impressions: Service Date/Time: Monday, June 20, 2016 18:42 - CONCLUSION: 1. Small bowel loops remain dilated to 3.4 cm most characteristic of an early or partial small bowel obstruction. Angulated small bowel loops in the lower pelvis suggest adhesions. 2. Loculated 5.2 cm fluid collection in the cul-de-sac without loculated air. 3. Dependent atelectasis or consolidation at both lung bases. Trace left pleural fluid. 4. No free air. Glenn Dougherty MD Abdomen X-Ray 06/17/16 0600 Signed Impressions: Service Date/Time: Friday, June 17, 2016 08:28 - CONCLUSION: 1. Continued findings of small bowel ileus. There has been no significant change when compared to the prior exam. Mitchell Sorenson MD Objective Remarks GENERAL: NAD with NG tube in place SKIN: Warm and dry. HEAD: Normocephalic. EYES: No scleral icterus. No injection or drainage. NECK: Supple, trachea midline. No JVD or lymphadenopathy. CARDIOVASCULAR: Regular rate and rhythm without murmurs, gallops, or rubs. RESPIRATORY: Breath sounds decreased bilaterally. No accessory muscle use. GASTROINTESTINAL: Abdomen soft, mildly tender, distended. Incision clean/dry/ intact. Hypoactive bowel sounds MUSCULOSKELETAL: No cyanosis, or edema. BACK: Nontender without obvious deformity. No CVA tenderness. Procedures Status post dx lap, lap ninfa, repair of enterotomy 06/17/16 A/P Problem List: (1) Small bowel obstruction ICD Code: K56.69 Status: Resolved (2) Hyperlipidemia ICD Code: E78.5 Status: Chronic (3) Tobacco abuse ICD Code: Z72.0 Status: Chronic (4) COPD (chronic obstructive pulmonary disease) ICD Code: J44.9 Status: Chronic (5) Nicotine dependence ICD Code: F17.200 Status: Chronic (6) Hypertension ICD Code: I10 Status: Chronic Assessment and Plan 61 year-old female with Distal small bowel obstruction/ileus: . Status post dx lap, lap ninfa, repair of enterotomy 06/17/16. Repeat CT abdomen/pelvis 06/20/16 with finding of Small bowel loops remain dilated to 3.4 cm most characteristic of an early or partial small bowel obstruction. Current treatment including nothing by mouth with NG tube in place and analgesic/antiemetic as well as Cipro and Flagyl IV. Appreciate input from general surgery and may consider a trip back to the OR pending today's small bowel follow-through Leukocytosis: From above infectious process, continue current antibiotics and monitor CBC Hypertension: Labile BP, Continue Lopressor, Vasotec when necessary History of COPD: No exacerbation and continue Symbicort, DuoNeb when necessary. Advised on tobacco cessation GERD: Continue PPI Hypokalemia: Resolved status post replacement Nicotine dependence: Advised on tobacco cessation, on nicotine patch DVT prophylaxis: bilateral SCDs Lars Rockwell MD Jun 21, 2016 14:12
--- NOTE | 2016-06-21 16:14 | RADRPT ---
EXAM DATE/TIME: 06/21/2016 08:54 [facility] COMPARISON: CT ABDOMEN & PELVIS W CONTRAST, June 20, 2016, 18:42. INDICATIONS : Small bowel obstruction. FLUORO TIME: 1.4 minutes IMAGE COUNT: CONTRAST: MD Ramey IMAGING TIME(S): 15 min, 30 min, 45 min, 1 hr, 1.5 dig2mgz,4 hrs, MEDICAL HISTORY : Hypertension. Gastroesophageal reflux disease. Diverticulitis. COPD. SURGICAL HISTORY : Cholecystectomy. Appendectomy.Hysterectomy. . ENCOUNTER: Subsequent ACUITY: 2 weeks PAIN SCORE: 8/10 LOCATION: entire abdomen. FINDINGS: Preliminary film is unremarkable. Water soluble contrast introduced per NG tube with a small sliding hiatal hernia. Clips are in the right upper quadrant prior cholecystectomy. Drain noted overlying the lower pelvis The stomach is grossly unremarkable. Examination of the small bowel demonstrates normal mucosal pattern involving the jejunum and ileum. There is no evidence of mass or obstruction. No intraluminal filling defects are identified. Small bowel transit time is normal at 6 hours. Fluoroscopy of the abdomen and terminal ileum demonstrates no abnormality. CONCLUSION: Unremarkable small bowel examination. No evidence of obstruction and no evidence of extravasation. Paramjit Lerner MD on June 21, 2016 at 16:10 Board Certified Radiologist. This report was verified electronically.
[2016-06-21] MEDS: FLUCONAZOLE 400 MG PREMIX BAG 200 ML IV SCH (16:38)
[2016-06-22] VITALS (8 sets, daily range): BP systolic 83–182; BP diastolic 74–102; PULSE 68–84; RESP 18–20; TEMP 97.6–98.5; O2SAT 92–96
[2016-06-22] MEDS: HYDROmorphone HCL PF 1 MG/ML VIAL IV PUSH PRN ×5 (00:39→22:30)
[2016-06-22] MEDS: metroNIDAZOLE 500 MG INJ 100 ML IV SCH (02:47)
[2016-06-22] MEDS: ONDANSETRON HCL 4 MG/2 ML VIAL IVP PRN ×2 (04:55→15:06)
[2016-06-22] MEDS: NS + KCL 20 MEQ INJ 1,000 ML IV SCH ×2 (06:28→08:38)
[2016-06-22] MEDS: DOCUSATE SODIUM 50 MG/SENNA 8.6 MG TAB PO SCH ×2 (08:39→21:00)
[2016-06-22] MEDS: REMOVE OLD NICOTINE PATCH TD SCH (08:39)
[2016-06-22] MEDS: METOPROLOL SUCCINATE 50 MG EXTENDED RELEASE TAB PO SCH (08:39)
[2016-06-22] MEDS: PANTOPRAZOLE SODIUM 40 MG VIAL IV PUSH SCH (08:39)
[2016-06-22] MEDS: NICOTINE 21 MG/24 HR PATCH TD SCH (08:39)
[2016-06-22] MEDS: SODIUM CHLORIDE 0.9% FLUSH 5 ML FLUSH FLUSH SCH ×2 (08:40→21:00)
[2016-06-22] MEDS ORDERED: ACETAMINOPHEN/HYDROcodone 325 MG/10 MG TAB PO PRN (12:00)
--- NOTE | 2016-06-22 13:17 | HHI.PR ---
Subjective Subjective Notes Tolerated clears Had several large BMs overnight Objective Vitals/I&O Vital Signs Date Time Temp Pulse Resp B/P Pulse Ox O2 Delivery O2 Flow Rate FiO2 06/22/16 10:20 95 21 06/22/16 09:34 Room Air 06/22/16 08:00 98.0 68 18 160/82 06/21/16 12:25 2.00 Labs Date/Time Procedure Status Source Growth 06/21/16 00:00 Aerobic Blood Culture - Preliminary Resulted Blood Peripheral NO GROWTH IN 1 DAY 06/21/16 00:00 Anaerobic Blood Culture - Preliminary Resulted Blood Peripheral NO GROWTH IN 1 DAY Cardiovascular: Regular Lungs: Clear Abdomen: Non-distended, Other (lap sites c/d/i; RODRIGUEZ with SS drainage ), Post-op tenderness Narrative Exam NGT removed A/P Assessment and Plan 61 year old female with SBO -POD5 dx lap; HALEY for SBO -Advance to Full Liquids with protein shakes -OOB and mobilize -Discussed with Dr. Medrano Attending Statement patient seen at bedside pt improving bowel starting to work Attestation The exam, history, and the medical decision-making described in the above note were completed with the assistance of the mid-level provider. I reviewed and agree with the findings presented. I attest that I had a [id number] encounter with the patient on the same day, and personally performed and documented my assessment and findings in the medical record. Viridiana Kemp Jun 22, 2016 13:17 Luis Medrano MD Jul 04, 2016 21:52
--- NOTE | 2016-06-22 14:43 | MP ---
cc: PRECIOUS MEDRANO MD DATE OF SURGERY 06/17/2016 PREOPERATIVE DIAGNOSIS Small bowel obstruction. POSTOPERATIVE DIAGNOSIS Small bowel obstruction, multiple adhesions. SURGEON Dr. Precious Medrano IN HOME [facility] See OR sheet. PROCEDURE PERFORMED 1. Diagnostic laparoscopy 2. Laparoscopic lysis of adhesions greater than 90 minutes, extensive adhesions. 3. Repair of enterotomy. ANESTHESIA GETA IV FLUIDS 1500 cc ESTIMATED BLOOD LOSS 25 cc SPECIMENS None DRAINS A 10-[place] Evan drain. WOUND CLASSIFICATION Clean, contaminated. FINDINGS Dilated proximal small bowel, multiple adhesions especially right lower quadrant, multiple adhesions including omentum and mesentery. INDICATIONS The patient is 61-year-old female who presented with acute episode of abdominal pain, nausea and vomiting. She underwent further workup including CT scan showing a bowel obstruction. She had history of multiple surgeries. She has never had an episode of obstruction before. She underwent initial nonoperative treatment including bowel rest, NG tube placement and electrolyte correction. She did have minimal improvement, but failed a p.o. challenge and with return of significant pain in the very minimal bowel function. Therefore decision was made for exploration and relief of bowel obstruction. This was discussed with the patient in detail who stated understanding, agreed and would like to proceed. DETAILS OF THE PROCEDURE The patient was taken TO THE operating suite, placed in the supine position. She was prepped and draped in usual sterile fashion after induction of general trache anesthesia. A brief time-out done stating correct patient, procedure and surgical site. We were all in agreement with this. Attention directed to the left upper quadrant. A small stab alice incision made with an 11 blade. Veress needle was used for intra-abdominal insufflation. Saline drop test confirmed intra-abdominal placement. After 15 mm pneumoperitoneum, the 5 mm scope was obtained and entered into the abdomen. On cursory inspection, no evidence of injury. There was noted to be a significant amount of adhesions especially to the right upper quadrant more a previous open cholecystectomy scar was along with lower quadrant and pelvis where a previous hysterectomy scar was. Another 5 mm incision was done in the left lower quadrant, instrument inserted and harmonic instrument used to begin mobilizing significant adhesions. This was done to facilitate other trocar placement and mobilized and begin exploration. Once the peritoneum was entered, the abdominal wall was cleared from multiple adhesions. Several other trocars placed, one 5-mm supraumbilical trocar followed by a right upper quadrant 5 mm trocar and a right lower quadrant 12 mm trocar. This was done under direct visualization. Next, further exploration of the pelvis was done. The small bowel was noted be significantly dilated and somewhat tenuous. A small tear in the mesentery and small bowel was noted and sutured with a 2-0 Polysorb was used for reapproximation with a Lembert stitch following this. Suction irrigation used as well. Next, the continuation of running the bowel from the ligament Treitz all the way down to the terminal ileum. Again, significantly more adhesions were encountered and these were lysed. Greater than 90 minutes of lysis of adhesion was done laparoscopically. Once approaching the bowel in the right lower quadrant it was noted to be extremely scarred in and adhesed down. The patient did have a previous appendectomy and concern for multiple adhesions from this site. The bowel was retracted and adhesions again with Endoshears and Harmonic scalpel were done to mobilize this right lower quadrant small bowel. Once adequate mobilization was done and the bowel appeared free from the ileum all the way up to the ligament of Treitz, we were satisfied with this. Again, the abdomen was wash with suction irrigation. A 10-[place] Lucian RODRIGUEZ drain was placed and placed out of the right upper quadrant 5 mm trocar and secured in place with a 2-0 nylon. This was placed in the pelvis. Next, the abdomen was desufflated. The trocars removed under direct visualization. The 12-mm trocar site was closed with 0-0 Vicryl in a [id number]. Next, 4-0 Monocryl subcuticular sutures were used at all port sites. Next, a sterile dressing was placed. The patient tolerated the procedure well. There were no intraoperative complication. All lap and instrument counts were correct at the end of the procedure. The patient tolerated the procedure well. NG tube was placed. MD FENG Olivier/OCTAVIANO /10:41 AM /2:34 PM
--- NOTE | 2016-06-22 16:05 | HHI.PR ---
Subjective Remarks BP elevated. Patient reports abdominal bloating and pain. Had one episode of vomiting. Currently denies nausea. She reports that Lortab is not working. Would like to go back on Dilaudid. Objective Vitals Vital Signs Date Time Temp Pulse Resp B/P Pulse Ox O2 Delivery O2 Flow Rate FiO2 06/22/16 12:00 97.9 77 20 182/102 94 06/22/16 10:20 95 21 06/22/16 09:34 Room Air 21 06/22/16 08:00 98.0 68 18 160/82 92 06/22/16 04:00 97.8 79 18 158/80 94 06/22/16 00:00 97.8 70 18 130/74 93 06/21/16 20:00 98.3 76 18 141/79 93 06/21/16 20:00 Room Air I/O 06/21/16 06/21/16 06/21/16 06/22/16 06/22/16 06/22/16 07:00 15:00 23:00 07:00 15:00 23:00 Intake Total 1777 ml 0 ml 1429 ml Output Total 510 ml 500 ml Balance 1267 ml -500 ml 1429 ml Intake Oral 300 ml 0 ml 240 ml IV Total 1477 ml 1189 ml Output Urine Total 500 ml Gastric Drainage Total 500 ml Drainage Total 10 ml # Voids 2 3 # Bowel Movements 0 0 3 Result Diagram: 06/21/16 0630 06/21/16 0630 Imaging Last Impressions Small Bowel X-Ray 06/21/16 0700 Signed Impressions: Service Date/Time: Tuesday, June 21, 2016 08:54 - CONCLUSION: Unremarkable small bowel examination. No evidence of obstruction and no evidence of extravasation. Paramjit Lerner MD Abdomen/Pelvis CT 06/20/16 0000 Signed Impressions: Service Date/Time: Monday, June 20, 2016 18:42 - CONCLUSION: 1. Small bowel loops remain dilated to 3.4 cm most characteristic of an early or partial small bowel obstruction. Angulated small bowel loops in the lower pelvis suggest adhesions. 2. Loculated 5.2 cm fluid collection in the cul-de-sac without loculated air. 3. Dependent atelectasis or consolidation at both lung bases. Trace left pleural fluid. 4. No free air. Glenn Dougherty MD Abdomen X-Ray 06/17/16 0600 Signed Impressions: Service Date/Time: Friday, June 17, 2016 08:28 - CONCLUSION: 1. Continued findings of small bowel ileus. There has been no significant change when compared to the prior exam. Mitchell Sorenson MD Objective Remarks GENERAL: This is a well-nourished, well-developed patient, in no acute distress. CARDIOVASCULAR: Regular rate and rhythm without murmurs, gallops, or rubs. RESPIRATORY: Clear to auscultation. Breath sounds equal bilaterally. No wheezes , rales, or rhonchi. GASTROINTESTINAL: Abdomen soft, diffuse, mild tenderness to palpation. Hypoactive bowel sounds. Laparoscopic steri strips intact. MUSCULOSKELETAL: Extremities without clubbing, cyanosis, or edema. NEURO: Alert & Oriented x4 to person, place, time, situation. Moves all ext x4 Procedures Status post dx lap, lap ninfa, repair of enterotomy 06/17/16 A/P Problem List: (1) Small bowel obstruction ICD Code: K56.69 Status: Resolved (2) Hyperlipidemia ICD Code: E78.5 Status: Chronic (3) Tobacco abuse ICD Code: Z72.0 Status: Chronic (4) COPD (chronic obstructive pulmonary disease) ICD Code: J44.9 Status: Chronic (5) Nicotine dependence ICD Code: F17.200 Status: Chronic (6) Hypertension ICD Code: I10 Status: Chronic Assessment and Plan 61 year-old female with Distal small bowel obstruction/ileus: . Status post dx lap, lap ninfa, repair of enterotomy 06/17/16. Repeat CT abdomen/pelvis 06/20/16 with finding of Small bowel loops remain dilated to 3.4 cm most characteristic of an early or partial small bowel obstruction. - Gen Surgery following, Diet advanced to full liquid. Monitor Closely to ensure she can tolerate. - Continue analgesic/antiemetic as well as Cipro and Flagyl IV. Leukocytosis: From above infectious process, continue current antibiotics and monitor CBC Hypertension: BP elevated this morning. Could be secondary to pain. Continue Lopressor, pain control, Vasotec when necessary History of COPD: Not in exacerbation. Continue Symbicort, DuoNeb when necessary. Patient previously counseled on tobacco cessation. GERD: Continue PPI Nicotine dependence: nicotine patch DVT prophylaxis: bilateral SCDs Zunilda Glez MD Jun 22, 2016 16:05
[2016-06-22] MEDS ORDERED: ENALAPRILAT 1.25 MG/ML VIAL IV PRN (16:30)
[2016-06-23] VITALS (7 sets, daily range): BP systolic 119–171; BP diastolic 67–98; PULSE 69–79; RESP 18–24; TEMP 97.6–98.1; O2SAT 92–94
[2016-06-23] MEDS: NS + KCL 20 MEQ INJ 1,000 ML IV SCH ×4 (01:00→22:57)
[2016-06-23] MEDS: HYDROmorphone HCL PF 1 MG/ML VIAL IV PUSH PRN ×5 (02:58→21:17)
[2016-06-23 06:42] LABS: HEMATOCRIT 41.9 % (35.0-46.0); MEAN CELL VOLUME 87.2 FL (80.0-100.0); MEAN CORPUSCULAR HEMOGLOBIN 30.1 PG (27.0-34.0); MEAN CORPUSCULAR HGB CONC 34.6 % (32.0-36.0); PLATELET COUNT 227 TH/MM3 (150-450); RED BLOOD COUNT 4.81 MIL/MM3 (4.00-5.30); RED CELL DISTRIBUTION WIDTH 12.9 % (11.6-17.2); REVIEW FLAG FINAL; WHITE BLOOD COUNT 8.7 TH/MM3 (4.0-11.0)
[2016-06-23 07:21] LABS: POTASSIUM 3.9 MEQ/L (3.5-5.1)
[2016-06-23] MEDS: METOPROLOL SUCCINATE 50 MG EXTENDED RELEASE TAB PO SCH (08:19)
[2016-06-23] MEDS: DOCUSATE SODIUM 50 MG/SENNA 8.6 MG TAB PO SCH ×2 (08:20→21:00)
[2016-06-23] MEDS: NICOTINE 21 MG/24 HR PATCH TD SCH (08:20)
[2016-06-23] MEDS: REMOVE OLD NICOTINE PATCH TD SCH (08:20)
[2016-06-23] MEDS: SODIUM CHLORIDE 0.9% FLUSH 5 ML FLUSH FLUSH SCH ×2 (08:20→21:00)
[2016-06-23] MEDS: PANTOPRAZOLE SODIUM 40 MG VIAL IV PUSH SCH (08:20)
--- NOTE | 2016-06-23 11:34 | HHI.PR ---
Subjective Remarks Patient reports persistent abdominal pain. Reports nausea but no vomiting today. She reports that she was unable to tolerate some shake and Jell-O. Otherwise everything she eats make the pain worse. Objective Vitals Vital Signs Date Time Temp Pulse Resp B/P Pulse Ox O2 Delivery O2 Flow Rate FiO2 06/23/16 08:00 Room Air 06/23/16 08:00 97.6 79 20 171/98 94 Manual Cuff/Auscultation 06/23/16 04:00 98.1 71 18 129/73 94 06/23/16 00:00 98.1 69 18 148/67 94 06/22/16 21:35 96 Nasal Cannula 21 06/22/16 20:00 Room Air 06/22/16 20:00 97.6 76 20 83/ 95 06/22/16 20:00 69 06/22/16 16:00 98.5 84 20 180/80 95 Automatic Cuff 06/22/16 12:00 97.9 77 20 182/102 94 I/O 06/22/16 06/22/16 06/22/16 06/23/16 06/23/16 06/23/16 07:00 15:00 23:00 07:00 15:00 23:00 Intake Total 1429 ml 480 ml 300 ml 2452 ml Balance 1429 ml 480 ml 300 ml 2452 ml Intake Oral 240 ml 480 ml 300 ml IV Total 1189 ml 2452 ml # Voids 3 4 3 # Bowel Movements 3 3 Result Diagram: 06/23/16 0608 06/23/16 0608 Objective Remarks GENERAL: This is a well-nourished, well-developed patient, in no acute distress. CARDIOVASCULAR: Regular rate and rhythm without murmurs, gallops, or rubs. RESPIRATORY: Clear to auscultation. Breath sounds equal bilaterally. No wheezes , rales, or rhonchi. GASTROINTESTINAL: Abdomen soft, diffuse, mild tenderness to palpation. Hypoactive bowel sounds. Laparoscopic steri strips intact. MUSCULOSKELETAL: Extremities without clubbing, cyanosis, or edema. NEURO: Alert & Oriented x4 to person, place, time, situation. Moves all ext x4 Procedures Status post dx lap, lap ninfa, repair of enterotomy 06/17/16 A/P Problem List: (1) Small bowel obstruction ICD Code: K56.69 Status: Resolved (2) Hyperlipidemia ICD Code: E78.5 Status: Chronic (3) Tobacco abuse ICD Code: Z72.0 Status: Chronic (4) COPD (chronic obstructive pulmonary disease) ICD Code: J44.9 Status: Chronic (5) Nicotine dependence ICD Code: F17.200 Status: Chronic (6) Hypertension ICD Code: I10 Status: Chronic Assessment and Plan 61 year-old female with Distal small bowel obstruction/ileus: . Status post dx lap, lap ninfa, repair of enterotomy 06/17/16. Repeat CT abdomen/pelvis 06/20/16 with finding of Small bowel loops remain dilated to 3.4 cm most characteristic of an early or partial small bowel obstruction. - Gen Surgery following, Diet advanced to full liquid. Monitor Closely to ensure she can tolerate. Further plans per general surgery - Continue analgesic/antiemetic as well as Cipro and Flagyl IV. - Encourage patient to ambulate. Leukocytosis: From above infectious process, continue current antibiotics and monitor CBC Hypertension: BP persistently elevated. Pain may be contributing. Continue Lopressor, pain control, Vasotec when necessary. Add amlodipine. History of COPD: Not in exacerbation. Continue Symbicort, DuoNeb when necessary. Patient previously counseled on tobacco cessation. GERD: Continue PPI Nicotine dependence: nicotine patch DVT prophylaxis: bilateral SCDs Zunilda Glez MD Jun 23, 2016 11:33
[2016-06-23] MEDS: amLODIPine BESYLATE 5 MG TAB PO SCH (12:25)
--- NOTE | 2016-06-23 14:00 | HHI.PR ---
Subjective Subjective Notes DAILY PROGRESS NOTE FOR SURGICAL ATTENDING, DR. AINSLEY PIMENTEL Patient would like more to eat Having a lot of diarrhea Having some abdominal cramps Objective Vitals/I&O Vital Signs Date Time Temp Pulse Resp B/P Pulse Ox O2 Delivery O2 Flow Rate FiO2 06/23/16 12:00 97.8 73 20 159/75 92 06/23/16 08:00 Room Air 06/22/16 21:35 21 06/21/16 12:25 2.00 Labs Laboratory Tests Test 06/23/16 06:08 White Blood Count 8.7 Red Blood Count 4.81 Hemoglobin 14.5 Hematocrit 41.9 Mean Corpuscular Volume 87.2 Mean Corpuscular Hemoglobin 30.1 Mean Corpuscular Hemoglobin 34.6 Concent Red Cell Distribution Width 12.9 Platelet Count 227 Mean Platelet Volume 8.9 Sodium Level 137 Potassium Level 3.9 Chloride Level 104 Carbon Dioxide Level 24.0 Anion Gap 9 Blood Urea Nitrogen 8 Creatinine 0.55 Estimat Glomerular Filtration 113 Rate Random Glucose 102 Calcium Level 8.3 Date/Time Procedure Status Source Growth 06/21/16 00:00 Aerobic Blood Culture - Preliminary Resulted Blood Peripheral NO GROWTH IN 2 DAYS 06/21/16 00:00 Anaerobic Blood Culture - Preliminary Resulted Blood Peripheral NO GROWTH IN 2 DAYS Radiology Last Impressions Small Bowel X-Ray 06/21/16 0700 Signed Impressions: Service Date/Time: Tuesday, June 21, 2016 08:54 - CONCLUSION: Unremarkable small bowel examination. No evidence of obstruction and no evidence of extravasation. Paramjit Lerner MD Abdomen/Pelvis CT 06/20/16 0000 Signed Impressions: Service Date/Time: Monday, June 20, 2016 18:42 - CONCLUSION: 1. Small bowel loops remain dilated to 3.4 cm most characteristic of an early or partial small bowel obstruction. Angulated small bowel loops in the lower pelvis suggest adhesions. 2. Loculated 5.2 cm fluid collection in the cul-de-sac without loculated air. 3. Dependent atelectasis or consolidation at both lung bases. Trace left pleural fluid. 4. No free air. Ainsley Dougherty MD Abdomen X-Ray 06/17/16 0600 Signed Impressions: Service Date/Time: Friday, June 17, 2016 08:28 - CONCLUSION: 1. Continued findings of small bowel ileus. There has been no significant change when compared to the prior exam. Mitchell Sorenson MD Cardiovascular: Regular Lungs: Clear Abdomen: Post-op tenderness Extremities: Perfused Narrative Exam Patient was up ambulating in the halls Wounds are healing up nicely A/P Problem List: (1) Small bowel obstruction Plan: Resolving after surgery (2) GERD (gastroesophageal reflux disease) (3) Abdominal pain Assessment and Plan 61-year-old female who is about a week out from left upper lysis of adhesions by Dr. Medrano Since her small bowel follow-through she's had numerous bouts of diarrhea and loose bowel movements with some abdominal cramping. She would like more to eat Change protonic to by mouth DC Reglan Problem Qualifiers (1) Abdominal pain: Qualified Code: R10.84 - Generalized abdominal pain Ainsley Pimentel MD Jun 23, 2016 14:00
[2016-06-23] MEDS: ONDANSETRON HCL 4 MG/2 ML VIAL IVP PRN (17:19)
[2016-06-24] VITALS (11 sets, daily range): BP systolic 130–150; BP diastolic 69–91; PULSE 62–72; RESP 18–22; TEMP 97.5–98.1; O2SAT 92–95
[2016-06-24] MEDS: HYDROmorphone HCL PF 1 MG/ML VIAL IV PUSH PRN ×3 (00:55→13:57)
[2016-06-24] MEDS: ONDANSETRON HCL 4 MG/2 ML VIAL IVP PRN (06:08)
[2016-06-24 08:07] LABS: HEMATOCRIT 41.6 % (35.0-46.0); MEAN CELL VOLUME 86.3 FL (80.0-100.0); MEAN CORPUSCULAR HEMOGLOBIN 29.9 PG (27.0-34.0); MEAN CORPUSCULAR HGB CONC 34.6 % (32.0-36.0); PLATELET COUNT 254 TH/MM3 (150-450); RED BLOOD COUNT 4.82 MIL/MM3 (4.00-5.30); RED CELL DISTRIBUTION WIDTH 12.6 % (11.6-17.2); REVIEW FLAG FINAL; WHITE BLOOD COUNT 8.8 TH/MM3 (4.0-11.0)
[2016-06-24 08:42] LABS: BICARBONATE 25.3 MEQ/L (21.0-32.0); POTASSIUM 3.8 MEQ/L (3.5-5.1)
[2016-06-24] MEDS: DOCUSATE SODIUM 50 MG/SENNA 8.6 MG TAB PO SCH ×2 (09:00→22:39)
[2016-06-24] MEDS: amLODIPine BESYLATE 5 MG TAB PO SCH (10:01)
[2016-06-24] MEDS: PANTOPRAZOLE SOD 20 MG DELAYED RELEASE TAB PO SCH (10:01)
[2016-06-24] MEDS: METOPROLOL SUCCINATE 50 MG EXTENDED RELEASE TAB PO SCH (10:01)
[2016-06-24] MEDS: NS + KCL 20 MEQ INJ 1,000 ML IV SCH ×3 (10:02→22:35)
[2016-06-24] MEDS: NICOTINE 21 MG/24 HR PATCH TD SCH (10:02)
[2016-06-24] MEDS: REMOVE OLD NICOTINE PATCH TD SCH (10:02)
[2016-06-24] MEDS: SODIUM CHLORIDE 0.9% FLUSH 5 ML FLUSH FLUSH SCH ×2 (10:02→22:40)
--- NOTE | 2016-06-24 12:07 | RADRPT ---
EXAM DATE/TIME: 06/24/2016 10:38 [facility] COMPARISON: CT ABDOMEN & PELVIS W CONTRAST, June 20, 2016, 18:42. SMALL BOWEL SERIES W/GASTROGRAFIN, June 21, 2016, 8:54. INDICATIONS : Diffuse abdominal pain MEDICAL HISTORY : Hypertension. Gastroesophageal reflux disease. Chronic obstructive pulmonary disease. diverticuli tis SURGICAL HISTORY : Cholecystectomy. Appendectomy. Hysterectomy. ENCOUNTER: Subsequent ACUITY: 2 weeks PAIN SCORE: 10/10 LOCATION: Bilateral abdomen FINDINGS: Supine view of the abdomen was performed. The abdominal bowel gas pattern reveals air in small bowel loops not disproportionate relative to colon.. No abnormal masses, calcifications, or organomegaly is seen. The osseous structures are unremarkable. Tubular drain in the pelvis has been removed and d iverticuli descending and sigmoid colon are appreciated CONCLUSION: Nonspecific abdomen with persistent air throughout the small bowel not disproportionate relative to c olon. Pelvic tubular drain removed. Diverticuli appreciated of the descending and sigmoid colon. Paramjit Lerner MD on June 24, 2016 at 12:04 Board Certified Radiologist. This report was verified electronically.
--- NOTE | 2016-06-24 13:53 | HHI.PR ---
Subjective Remarks Patient reports persistent abdominal pain. No nausea or vomiting. She reports having diarrhea. C. difficile pending. Objective Vitals Vital Signs Date Time Temp Pulse Resp B/P Pulse Ox O2 Delivery O2 Flow Rate FiO2 06/24/16 12:28 97.8 64 22 141/81 92 06/24/16 09:16 93 06/24/16 08:22 97.6 69 18 130/72 95 06/24/16 08:00 Room Air 06/24/16 04:00 97.7 65 18 140/78 94 06/24/16 00:12 94 06/24/16 00:00 98.1 69 18 130/69 94 06/23/16 21:15 Room Air 06/23/16 20:05 72 06/23/16 20:00 98.1 69 18 119/72 94 06/23/16 16:00 97.7 73 24 146/81 92 I/O 06/23/16 06/23/16 06/23/16 06/24/16 06/24/16 06/24/16 07:00 15:00 23:00 07:00 15:00 23:00 Intake Total 2452 ml 480 ml 360 ml 1971 ml Output Total 675 ml 450 ml 400 ml Balance 2452 ml -195 ml -90 ml 1571 ml Intake Oral 480 ml 360 ml 360 ml IV Total 2452 ml 1611 ml Output Urine Total 675 ml 450 ml 400 ml # Bowel Movements 1 Result Diagram: 06/24/16 0720 06/24/16 0720 Imaging Last Impressions Abdomen X-Ray 06/24/16 0000 Signed Impressions: Service Date/Time: Friday, June 24, 2016 10:38 - CONCLUSION: Nonspecific abdomen with persistent air throughout the small bowel not disproportionate relative to colon. Pelvic tubular drain removed. Diverticuli appreciated of the descending and sigmoid colon. Paramjit Lerner MD Small Bowel X-Ray 06/21/16 0700 Signed Impressions: Service Date/Time: Tuesday, June 21, 2016 08:54 - CONCLUSION: Unremarkable small bowel examination. No evidence of obstruction and no evidence of extravasation. Paramjit Lerner MD Abdomen/Pelvis CT 06/20/16 0000 Signed Impressions: Service Date/Time: Monday, June 20, 2016 18:42 - CONCLUSION: 1. Small bowel loops remain dilated to 3.4 cm most characteristic of an early or partial small bowel obstruction. Angulated small bowel loops in the lower pelvis suggest adhesions. 2. Loculated 5.2 cm fluid collection in the cul-de-sac without loculated air. 3. Dependent atelectasis or consolidation at both lung bases. Trace left pleural fluid. 4. No free air. Glenn Dougherty MD Objective Remarks GENERAL: This is a well-nourished, well-developed patient, in no acute distress. CARDIOVASCULAR: Regular rate and rhythm without murmurs, gallops, or rubs. RESPIRATORY: Clear to auscultation. Breath sounds equal bilaterally. No wheezes , rales, or rhonchi. GASTROINTESTINAL: Abdomen soft, diffuse, mild tenderness to palpation. Hypoactive bowel sounds. Laparoscopic steri strips intact. MUSCULOSKELETAL: Extremities without clubbing, cyanosis, or edema. NEURO: Alert & Oriented x4 to person, place, time, situation. Moves all ext x4 Procedures Status post dx lap, lap ninfa, repair of enterotomy 06/17/16 A/P Problem List: (1) Small bowel obstruction ICD Code: K56.69 Status: Resolved (2) Hyperlipidemia ICD Code: E78.5 Status: Chronic (3) Tobacco abuse ICD Code: Z72.0 Status: Chronic (4) COPD (chronic obstructive pulmonary disease) ICD Code: J44.9 Status: Chronic (5) Nicotine dependence ICD Code: F17.200 Status: Chronic (6) Hypertension ICD Code: I10 Status: Chronic Assessment and Plan 61 year-old female with Distal small bowel obstruction/ileus: . Status post dx lap, lap ninfa, repair of enterotomy 06/17/16. Repeat CT abdomen/pelvis 06/20/16 with finding of Small bowel loops remain dilated to 3.4 cm most characteristic of an early or partial small bowel obstruction. Repeat KUB shows persistent air in the small bowel not disproportionate to the colon. - Gen Surgery following, still having issues with abdominal pain and diarrhea. Further plans per general surgery - Continue analgesic/antiemetic as well as Cipro and Flagyl IV. - Encourage patient to ambulate. Pain control. Hypertension: Much better controlled after adding amlodipine on 06/23/16. Continue Lopressor, pain control, Vasotec when necessary. History of COPD: Not in exacerbation. Continue Symbicort, DuoNeb when necessary. Patient previously counseled on tobacco cessation. GERD: Continue PPI Nicotine dependence: nicotine patch DVT prophylaxis: bilateral SCDs Zunilda Glez MD Jun 24, 2016 13:53
--- NOTE | 2016-06-24 15:08 | HHI.PR ---
Subjective Subjective Notes DAILY PROGRESS NOTE FOR SURGICAL ATTENDING, DR. GLENN PIMENTEL Reports abdominal pain Having BMs Objective Vitals/I&O Vital Signs Date Time Temp Pulse Resp B/P Pulse Ox O2 Delivery O2 Flow Rate FiO2 06/24/16 12:28 97.8 64 22 141/81 92 06/24/16 08:00 Room Air 06/22/16 21:35 21 06/21/16 12:25 2.00 Labs Laboratory Tests Test 06/24/16 07:20 White Blood Count 8.8 Red Blood Count 4.82 Hemoglobin 14.4 Hematocrit 41.6 Mean Corpuscular Volume 86.3 Mean Corpuscular Hemoglobin 29.9 Mean Corpuscular Hemoglobin 34.6 Concent Red Cell Distribution Width 12.6 Platelet Count 254 Mean Platelet Volume 8.9 Sodium Level 135 Potassium Level 3.8 Chloride Level 102 Carbon Dioxide Level 25.3 Anion Gap 8 Blood Urea Nitrogen 6 Creatinine 0.60 Estimat Glomerular Filtration 102 Rate Random Glucose 99 Calcium Level 8.4 Date/Time Procedure Status Source Growth 06/21/16 00:00 Aerobic Blood Culture - Preliminary Resulted Blood Peripheral NO GROWTH IN 3 DAYS 06/21/16 00:00 Anaerobic Blood Culture - Preliminary Resulted Blood Peripheral NO GROWTH IN 3 DAYS Radiology Last Impressions Small Bowel X-Ray 06/21/16 0700 Signed Impressions: Service Date/Time: Tuesday, June 21, 2016 08:54 - CONCLUSION: Unremarkable small bowel examination. No evidence of obstruction and no evidence of extravasation. Paramjit Lerner MD Abdomen/Pelvis CT 06/20/16 0000 Signed Impressions: Service Date/Time: Monday, June 20, 2016 18:42 - CONCLUSION: 1. Small bowel loops remain dilated to 3.4 cm most characteristic of an early or partial small bowel obstruction. Angulated small bowel loops in the lower pelvis suggest adhesions. 2. Loculated 5.2 cm fluid collection in the cul-de-sac without loculated air. 3. Dependent atelectasis or consolidation at both lung bases. Trace left pleural fluid. 4. No free air. Glenn Dougherty MD Abdomen X-Ray 06/17/16 0600 Signed Impressions: Service Date/Time: Friday, June 17, 2016 08:28 - CONCLUSION: 1. Continued findings of small bowel ileus. There has been no significant change when compared to the prior exam. Mitchell Sorenson MD Cardiovascular: Regular Lungs: Clear Abdomen: Other (abd soft; tender; non distended; RODRIGUEZ removed ) Extremities: No edema Narrative Exam NGT removed A/P Problem List: (1) Small bowel obstruction (2) GERD (gastroesophageal reflux disease) (3) Abdominal pain Assessment and Plan 61 year old female with SBO -Check KUB -Check c-diff -POD7 dx lap; HALEY for SBO -Regular diet (no dairy) -OOB and mobilize Attending Statement NOTE FOR SURGICAL ATTENDING, DR. GLENN PIMENTEL I agree with above assessment and plan. Still having some abdominal discomfort ate 1/2 a ham sandwich C. difficile pending The exam, history, and the medical decision-making described in the above note were completed with the assistance of the mid-level provider. I reviewed and agree with the findings presented. I attest that I had a [id number] encounter with the patient on the same day, and personally performed and documented my assessment and findings in the medical record. The following services were provided during this hospital visit: Chart data review, vital sign assessments/reviewing monitor data Review of consultations notes if present. Medication orders/review and/or management Ordering and/or reviewing lab tests Ordering and/or interpreting/reviewing x-rays and/or diagnostic studies Care of the patient and discussion of the patient with the care team Documentation time To help prompt me to consider important information that might be impacting today's encounter and assessment, information from prior notes written by myself or my colleagues may have been "brought forward/copy and pasted" into today's note. Problem Qualifiers (1) Abdominal pain: Qualified Code: R10.84 - Generalized abdominal pain Viridiana Kemp Jun 24, 2016 15:08 Glenn Pimentel MD Jun 24, 2016 15:19
[2016-06-24] MEDS: HYDROmorphone HCL PF 2 MG/ML VIAL IV PRN (22:42)
[2016-06-24 22:53] LABS: C. DIFF EPI 027 PRESUMPTIVE NEGATIVE (NEGATIVE); C. DIFF TOXIN PCR NEGATIVE (NEGATIVE)
[2016-06-25] VITALS (8 sets, daily range): BP systolic 123–157; BP diastolic 57–90; PULSE 61–104; RESP 18–20; TEMP 97.1–97.8; O2SAT 92–94
[2016-06-25] MEDS: HYDROmorphone HCL PF 2 MG/ML VIAL IV PRN ×4 (02:40→21:02)
[2016-06-25] MEDS: DOCUSATE SODIUM 50 MG/SENNA 8.6 MG TAB PO SCH ×2 (08:20→20:51)
[2016-06-25] MEDS: PANTOPRAZOLE SOD 20 MG DELAYED RELEASE TAB PO SCH (08:20)
[2016-06-25] MEDS: amLODIPine BESYLATE 5 MG TAB PO SCH (08:20)
[2016-06-25] MEDS: METOPROLOL SUCCINATE 50 MG EXTENDED RELEASE TAB PO SCH (08:22)
[2016-06-25] MEDS: NICOTINE 21 MG/24 HR PATCH TD SCH (08:24)
[2016-06-25] MEDS: REMOVE OLD NICOTINE PATCH TD SCH (08:24)
[2016-06-25 08:42] LABS: HEMATOCRIT 42.4 % (35.0-46.0); MEAN CELL VOLUME 85.3 FL (80.0-100.0); MEAN CORPUSCULAR HGB CONC 35.2 % (32.0-36.0); PLATELET COUNT 239 TH/MM3 (150-450); RED BLOOD COUNT 4.98 MIL/MM3 (4.00-5.30); RED CELL DISTRIBUTION WIDTH 12.8 % (11.6-17.2); REVIEW FLAG FINAL; WHITE BLOOD COUNT 8.7 TH/MM3 (4.0-11.0)
[2016-06-25 08:52] LABS: BICARBONATE 26.3 MEQ/L (21.0-32.0); POTASSIUM 3.9 MEQ/L (3.5-5.1)
[2016-06-25] MEDS ORDERED: HYDROmorphone HCL PF 2 MG/ML VIAL IV PUSH ONE (10:00)
[2016-06-25] MEDS ORDERED: DIATRIZOATE MEGLUM/DIATRIZOATE SOD 9 ML CUP PO ONE (10:00)
[2016-06-25] MEDS: ONDANSETRON HCL 4 MG/2 ML VIAL IVP PRN ×2 (10:16→15:58)
[2016-06-25] MEDS: NS + KCL 20 MEQ INJ 1,000 ML IV SCH (10:18)
[2016-06-25] MEDS: SODIUM CHLORIDE 0.9% FLUSH 5 ML FLUSH FLUSH SCH ×2 (10:19→20:51)
--- NOTE | 2016-06-25 11:23 | HHI.PR ---
Subjective Remarks Patient reports severe abdominal pain this morning. She required an extra dose of IV Dilaudid. She reports persistent epigastric pain and gastric reflux symptoms. Last small loose bowel movement was yesterday. No flatus. Objective Vitals Vital Signs Date Time Temp Pulse Resp B/P Pulse Ox O2 Delivery O2 Flow Rate FiO2 06/25/16 08:39 97.5 71 18 157/90 93 06/25/16 08:13 92 21 06/25/16 07:15 Room Air 2.00 21 06/25/16 04:00 97.1 69 18 143/73 94 06/25/16 00:00 97.6 70 20 123/57 93 06/24/16 22:45 Room Air 06/24/16 21:36 93 06/24/16 20:10 66 06/24/16 20:00 97.8 62 20 138/85 93 06/24/16 16:33 97.5 72 20 150/91 92 06/24/16 12:28 97.8 64 22 141/81 92 I/O 06/24/16 06/24/16 06/24/16 06/25/16 06/25/16 06/25/16 07:00 15:00 23:00 07:00 15:00 23:00 Intake Total 1971 ml 220 ml 100 ml Output Total 400 ml 350 ml Balance 1571 ml -130 ml 100 ml Intake Oral 360 ml 220 ml 100 ml IV Total 1611 ml Output Urine Total 400 ml 350 ml # Voids 3 # Bowel Movements 0 Result Diagram: 06/25/16 0718 06/25/16 0755 Objective Remarks GENERAL: This is a well-nourished, well-developed patient, in no acute distress. CARDIOVASCULAR: Regular rate and rhythm without murmurs, gallops, or rubs. RESPIRATORY: Clear to auscultation. Breath sounds equal bilaterally. No wheezes , rales, or rhonchi. GASTROINTESTINAL: Abdomen soft, there is diffuse tenderness to palpation. Hypoactive bowel sounds. Laparoscopic steri strips intact. MUSCULOSKELETAL: Extremities without clubbing, cyanosis, or edema. NEURO: Alert & Oriented x4 to person, place, time, situation. Moves all ext x4 Procedures Status post dx lap, lap ninfa, repair of enterotomy 06/17/16 A/P Problem List: (1) Small bowel obstruction ICD Code: K56.69 Status: Resolved (2) Hyperlipidemia ICD Code: E78.5 Status: Chronic (3) Tobacco abuse ICD Code: Z72.0 Status: Chronic (4) COPD (chronic obstructive pulmonary disease) ICD Code: J44.9 Status: Chronic (5) Nicotine dependence ICD Code: F17.200 Status: Chronic (6) Hypertension ICD Code: I10 Status: Chronic Assessment and Plan 61 year-old female with Distal small bowel obstruction/ileus: . Status post dx lap, lap ninfa, repair of enterotomy 06/17/16. Repeat CT abdomen/pelvis 06/20/16 with finding of Small bowel loops remain dilated to 3.4 cm most characteristic of an early or partial small bowel obstruction. - Gen Surgery following, still having issues with persistent abdominal pain. Repeat KUB shows persistent air in the small bowel not disproportionate to the colon. Will obtain CAT scan. Appreciate further input from general surgery. - Continue analgesic/antiemetic as well as Cipro and Flagyl IV. - Encourage patient to ambulate. Pain control. Hypertension: Much better controlled after adding amlodipine on 06/23/16. Continue Lopressor, pain control, Vasotec when necessary. History of COPD: Not in exacerbation. Continue Symbicort, DuoNeb when necessary. Patient previously counseled on tobacco cessation. GERD: Continue PPI, increase dose to 40 mg daily. Add Pepcid Nicotine dependence: nicotine patch DVT prophylaxis: bilateral SCDs Zunilda Glez MD Jun 25, 2016 11:23
[2016-06-25] MEDS: FAMOTIDINE 20 MG TAB PO SCH ×2 (15:58→20:51)
--- NOTE | 2016-06-25 16:28 | HHI.PR ---
Subjective Subjective Notes Not feeling as well today; not much appetite Objective Vitals/I&O Vital Signs Date Time Temp Pulse Resp B/P Pulse Ox O2 Delivery O2 Flow Rate FiO2 06/25/16 13:30 97.8 62 18 145/67 93 06/25/16 08:13 21 06/25/16 07:15 Room Air 2.00 Labs Laboratory Tests Test 06/24/16 06/25/16 06/25/16 18:00 07:18 07:55 Stool C. difficile Toxin (PCR) NEGATIVE Stl C. difficile Toxin PRESUMPTIVE Epiderm 027 NEGATIVE White Blood Count 8.7 Red Blood Count 4.98 Hemoglobin 14.9 Hematocrit 42.4 Mean Corpuscular Volume 85.3 Mean Corpuscular Hemoglobin 30.0 Mean Corpuscular Hemoglobin 35.2 Concent Red Cell Distribution Width 12.8 Platelet Count 239 Mean Platelet Volume 9.7 Hematology Comments Sodium Level 135 Potassium Level 3.9 Chloride Level 102 Carbon Dioxide Level 26.3 Anion Gap 7 Blood Urea Nitrogen 6 Creatinine 0.60 Estimat Glomerular Filtration 102 Rate Random Glucose 109 Calcium Level 8.5 Date/Time Procedure Status Source Growth 06/21/16 00:00 Aerobic Blood Culture - Preliminary Resulted Blood Peripheral NO GROWTH IN 4 DAYS 06/21/16 00:00 Anaerobic Blood Culture - Preliminary Resulted Blood Peripheral NO GROWTH IN 4 DAYS Radiology Last Impressions Small Bowel X-Ray 06/21/16 0700 Signed Impressions: Service Date/Time: Tuesday, June 21, 2016 08:54 - CONCLUSION: Unremarkable small bowel examination. No evidence of obstruction and no evidence of extravasation. Paramjit Lerner MD Abdomen/Pelvis CT 06/20/16 0000 Signed Impressions: Service Date/Time: Monday, June 20, 2016 18:42 - CONCLUSION: 1. Small bowel loops remain dilated to 3.4 cm most characteristic of an early or partial small bowel obstruction. Angulated small bowel loops in the lower pelvis suggest adhesions. 2. Loculated 5.2 cm fluid collection in the cul-de-sac without loculated air. 3. Dependent atelectasis or consolidation at both lung bases. Trace left pleural fluid. 4. No free air. Glenn Dougherty MD Abdomen X-Ray 06/17/16 0600 Signed Impressions: Service Date/Time: Friday, June 17, 2016 08:28 - CONCLUSION: 1. Continued findings of small bowel ileus. There has been no significant change when compared to the prior exam. Mitchell Sorenson MD Lungs: Clear Abdomen: Other (Mild distention with diffuse moderate pain to palpation; no peritoneal signs) Extremities: No edema A/P Problem List: (1) Small bowel obstruction (2) GERD (gastroesophageal reflux disease) (3) Abdominal pain Assessment and Plan Problem List: (1) Small bowel obstruction (2) GERD (gastroesophageal reflux disease) (3) Abdominal pain Assessment and Plan 61 year old female with SBO - KUB shows no evidence ileus/obstruction -c-diff negative -POD8 dx lap; HALEY for SBO -Regular diet (no dairy) -OOB and mobilize Problem Qualifiers (1) Abdominal pain: Qualified Code: R10.84 - Generalized abdominal pain Arthur Radford MD Jun 25, 2016 16:28
[2016-06-25] MEDS ORDERED: IOHEXOL 350 MG/ML 10 ML VIAL (for RAD DIAG) IV ONE ×2 (18:53→19:00)
--- NOTE | 2016-06-25 19:37 | RADRPT ---
EXAM DATE/TIME: 06/25/2016 18:53 [facility] COMPARISON: CT ABDOMEN & PELVIS W CONTRAST, June 20, 2016, 18:42. INDICATIONS : Diffuse abdominal pain. IV CONTRAST: 95 cc Omnipaque 350 (iohexol) IV ORAL CONTRAST: Partial prescribed oral contrast ingested. RADIATION DOSE: 9.96 CTDIvol (mGy) MEDICAL HISTORY : Cardiovascular disease. Hypertension. Gastroesophageal reflux disease.Diverticulitis. SURGICAL HISTORY : section. Hysterectomy.Appendectomy.Cholecystectomy. ENCOUNTER: Initial ACUITY: 1 day PAIN SCALE: 3/10 LOCATION: Bilateral adbomen TECHNIQUE: Volumetric scanning of the abdomen and pelvis was performed. Using automated exposure control and ad justment of the mA and/or kV according to patient size, radiation dose was kept as low as reasonably achievable to obtain optimal diagnostic quality images. FINDINGS: There has been increase in the amount of gaseous distention of loops of small bowel when compared to prior CT 06/20/16. Small bowel loops are dilated proximally and mid with the distal small bowel loops in the right lower quadrant nondistended. There is contrast present throughout the colon, from a sm all bowel series which was performed on 06/21/16 no residual contrast in the small bowel. Diffuse fatty change of the liver. It was before from prior cholecystectomy. Agris, kidneys, and ad renal glands are intact. The abdominal aorta is normal in diameter. There is induration of the subc utaneous tissues right lower quadrant abdominal wall. Urinary bladder margins are seen. Focal fluid collection in the lower right pelvis has decreased in size, now measuring 3.9 cm (previously measure d 5.2 cm).. CONCLUSION: 1. Increase in the amount of small bowel distention when compared to prior CT 5 days ago. Multiple a ir-fluid levels throughout the small bowel 2. The contrast from a small bowel series performed 4 days ago is located diffusely throughout the co leonor and there is no residual contrast in the small bowel suggesting the absence of a small bowel obst ruction. However, there is a transition of diameter in small bowel located in the right lower quadra nt. Possibly, there is a partial obstruction to. Dick Coon MD on June 25, 2016 at 19:15 Board Certified Radiologist. This report was verified electronically.
[2016-06-26] VITALS (8 sets, daily range): BP systolic 111–153; BP diastolic 56–73; PULSE 53–74; RESP 18–20; TEMP 97.2–98.6; O2SAT 91–93
[2016-06-26] MEDS: NS + KCL 20 MEQ INJ 1,000 ML IV SCH ×3 (01:08→23:46)
[2016-06-26] MEDS: HYDROmorphone HCL PF 2 MG/ML VIAL IV PRN ×6 (01:09→23:41)
[2016-06-26] MEDS: ONDANSETRON HCL 4 MG/2 ML VIAL IVP PRN ×3 (01:13→23:46)
[2016-06-26 07:04] LABS: BICARBONATE 23.5 MEQ/L (21.0-32.0); POTASSIUM 4.8 MEQ/L (3.5-5.1)
--- NOTE | 2016-06-26 07:35 | HHI.PR ---
Subjective Subjective Notes pt states continued pain and vomited yesterday, CT shows contrast in colon, persistent dilated small bowel loops Objective Vitals/I&O Vital Signs Date Time Temp Pulse Resp B/P Pulse Ox O2 Delivery O2 Flow Rate FiO2 06/26/16 05:39 18 06/26/16 04:00 97.5 66 133/73 92 06/25/16 20:00 Room Air 06/25/16 08:13 21 06/25/16 07:15 2.00 Labs Laboratory Tests Test 06/25/16 07:55 Sodium Level 135 Potassium Level 3.9 Chloride Level 102 Carbon Dioxide Level 26.3 Anion Gap 7 Blood Urea Nitrogen 6 Creatinine 0.60 Estimat Glomerular Filtration 102 Rate Random Glucose 109 Calcium Level 8.5 Radiology Last Impressions Small Bowel X-Ray 06/21/16 0700 Signed Impressions: Service Date/Time: Tuesday, June 21, 2016 08:54 - CONCLUSION: Unremarkable small bowel examination. No evidence of obstruction and no evidence of extravasation. Paramjit Lerner MD Abdomen/Pelvis CT 06/20/16 0000 Signed Impressions: Service Date/Time: Monday, June 20, 2016 18:42 - CONCLUSION: 1. Small bowel loops remain dilated to 3.4 cm most characteristic of an early or partial small bowel obstruction. Angulated small bowel loops in the lower pelvis suggest adhesions. 2. Loculated 5.2 cm fluid collection in the cul-de-sac without loculated air. 3. Dependent atelectasis or consolidation at both lung bases. Trace left pleural fluid. 4. No free air. Glenn Dougherty MD Abdomen X-Ray 06/17/16 0600 Signed Impressions: Service Date/Time: Friday, June 17, 2016 08:28 - CONCLUSION: 1. Continued findings of small bowel ileus. There has been no significant change when compared to the prior exam. Mitchell Sorenson MD Cardiovascular: Regular Lungs: Clear Abdomen: Other (soft, mild distension, +ttp pelvic region) A/P Problem List: (1) Small bowel obstruction (2) GERD (gastroesophageal reflux disease) (3) Abdominal pain Assessment and Plan SBO PLAN OR today for exploratory laparotomy HALEY, Possible bowel resection discussed with patient in detail NPO Problem Qualifiers (1) Abdominal pain: Qualified Code: R10.84 - Generalized abdominal pain Luis Medrano MD Jun 26, 2016 07:35
[2016-06-26 07:37] LABS: HEMATOCRIT 41.8 % (35.0-46.0); MEAN CORPUSCULAR HEMOGLOBIN 29.8 PG (27.0-34.0); MEAN CORPUSCULAR HGB CONC 34.7 % (32.0-36.0); PLATELET COUNT 205 TH/MM3 (150-450); RED BLOOD COUNT 4.86 MIL/MM3 (4.00-5.30); RED CELL DISTRIBUTION WIDTH 13.3 % (11.6-17.2); WHITE BLOOD COUNT 10.7 TH/MM3 (4.0-11.0)
[2016-06-26] MEDS: PANTOPRAZOLE SODIUM 40 MG VIAL IV PUSH SCH (07:45)
[2016-06-26 08:10] LABS: REVIEW FLAG FINAL
[2016-06-26] MEDS ORDERED: SODIUM CHLORID 0.9% 500 ML IV SCH (08:30)
[2016-06-26] MEDS: LACTATED RINGER'S 1000 ML IV SCH (08:30)
[2016-06-26] MEDS ORDERED: INSULIN HUMAN REGULAR 1,000 UNITS/10 ML VIAL SQ PRN (08:30)
[2016-06-26] MEDS ORDERED: METOPROLOL TARTRATE 25 MG TAB PO PRN (08:30)
[2016-06-26] MEDS: NICOTINE 21 MG/24 HR PATCH TD SCH (09:00)
[2016-06-26] MEDS: FAMOTIDINE 20 MG TAB PO SCH ×2 (09:00→20:39)
[2016-06-26] MEDS ORDERED: PANTOPRAZOLE SOD 20 MG DELAYED RELEASE TAB PO SCH (09:00)
[2016-06-26] MEDS: SODIUM CHLORIDE 0.9% FLUSH 5 ML FLUSH FLUSH SCH ×2 (09:00→20:16)
[2016-06-26] MEDS: REMOVE OLD NICOTINE PATCH TD SCH (09:00)
[2016-06-26] MEDS: DOCUSATE SODIUM 50 MG/SENNA 8.6 MG TAB PO SCH ×2 (09:00→20:39)
--- NOTE | 2016-06-26 09:23 | HHI.PR ---
Subjective Remarks Patient continues to report persistent abdominal pain. No vomiting. CT shows worsening dilated loops of bowel. Patient to go back to OR today per general surgery. Objective Vitals Vital Signs Date Time Temp Pulse Resp B/P Pulse Ox O2 Delivery O2 Flow Rate FiO2 06/26/16 05:39 18 06/26/16 04:00 97.5 66 18 133/73 92 06/26/16 00:00 97.7 70 18 112/72 93 06/25/16 20:00 97.3 61 20 124/67 92 06/25/16 20:00 70 06/25/16 20:00 Room Air 06/25/16 17:19 97.3 104 18 127/67 94 06/25/16 13:30 97.8 62 18 145/67 93 I/O 06/25/16 06/25/16 06/25/16 06/26/16 06/26/16 06/26/16 07:00 15:00 23:00 07:00 15:00 23:00 Intake Total 100 ml 1275 ml 400 ml 1341 ml Output Total 200 ml Balance 100 ml 1275 ml 400 ml 1141 ml Intake Oral 100 ml 1200 ml 400 ml 240 ml IV Total 75 ml 1101 ml Output Urine Total 200 ml # Voids 3 4 1 # Bowel Movements 0 0 0 Result Diagram: 06/26/16 0530 06/26/16 0530 Imaging Last Impressions Abdomen/Pelvis CT 06/25/16 0000 Signed Impressions: Service Date/Time: Saturday, June 25, 2016 18:53 - CONCLUSION: 1. Increase in the amount of small bowel distention when compared to prior CT 5 days ago. Multiple air-fluid levels throughout the small bowel 2. The contrast from a small bowel series performed 4 days ago is located diffusely throughout the colon and there is no residual contrast in the small bowel suggesting the absence of a small bowel obstruction. However, there is a transition of diameter in small bowel located in the right lower quadrant. Possibly, there is a partial obstruction to. Dick Coon MD Abdomen X-Ray 06/24/16 0000 Signed Impressions: Service Date/Time: Friday, June 24, 2016 10:38 - CONCLUSION: Nonspecific abdomen with persistent air throughout the small bowel not disproportionate relative to colon. Pelvic tubular drain removed. Diverticuli appreciated of the descending and sigmoid colon. Paramjit Lerner MD Small Bowel X-Ray 06/21/16 0700 Signed Impressions: Service Date/Time: Tuesday, June 21, 2016 08:54 - CONCLUSION: Unremarkable small bowel examination. No evidence of obstruction and no evidence of extravasation. Paramjit Lerner MD Objective Remarks GENERAL: Patient in no acute distress. CARDIOVASCULAR: Regular rate and rhythm without murmurs, gallops, or rubs. RESPIRATORY: Clear to auscultation. Breath sounds equal bilaterally. No wheezes , rales, or rhonchi. GASTROINTESTINAL: Abdomen soft, there is diffuse tenderness to palpation. Hypoactive bowel sounds. Laparoscopic steri strips intact. MUSCULOSKELETAL: Extremities without clubbing, cyanosis, or edema. NEURO: Alert & Oriented x4 to person, place, time, situation. Moves all ext x4 Procedures Status post dx lap, lap ninfa, repair of enterotomy 06/17/16 A/P Problem List: (1) Small bowel obstruction ICD Code: K56.69 Status: Resolved (2) Hyperlipidemia ICD Code: E78.5 Status: Chronic (3) Tobacco abuse ICD Code: Z72.0 Status: Chronic (4) COPD (chronic obstructive pulmonary disease) ICD Code: J44.9 Status: Chronic (5) Nicotine dependence ICD Code: F17.200 Status: Chronic (6) Hypertension ICD Code: I10 Status: Chronic Assessment and Plan 61 year-old female with Distal small bowel obstruction/ileus: . Status post dx lap, lap ninfa, repair of enterotomy 06/17/16. Repeat CT abdomen/pelvis 06/25/16 with worsening dilated loops of bowel. - Gen Surgery following, still having issues with persistent abdominal pain. Will return to OR today per surgery - Continue analgesic/antiemetic as well as Cipro and Flagyl IV. - Pain control. Hypertension: Much better controlled after adding amlodipine on 06/23/16. Continue Lopressor, pain control, Vasotec when necessary. History of COPD: Not in exacerbation. Continue Symbicort, DuoNeb when necessary. Patient previously counseled on tobacco cessation. GERD: Continue PPI, increase dose to 40 mg daily. Pepcid Nicotine dependence: nicotine patch DVT prophylaxis: bilateral SCDs Zunilda Glez MD Jun 26, 2016 09:23
[2016-06-26] MEDS: METOPROLOL SUCCINATE 50 MG EXTENDED RELEASE TAB PO SCH (10:33)
[2016-06-26] MEDS ORDERED: HYDROmorphone HCL PF 1 MG/ML VIAL ONE ×2 (20:01→20:02)
[2016-06-26] MEDS ORDERED: HYDROmorphone HCL PF 2 MG/ML VIAL IV ONE (20:15)
[2016-06-27] VITALS (7 sets, daily range): BP systolic 112–150; BP diastolic 59–78; PULSE 57–87; RESP 12–20; TEMP 97.5–98.1; O2SAT 93–95
[2016-06-27] MEDS: HYDROmorphone HCL PF 2 MG/ML VIAL IV PRN (03:33)
[2016-06-27] MEDS ORDERED: BUPIVACAINE/EPINEPHRINE 0.25% 50 ML VIAL ONE (04:08)
[2016-06-27] MEDS ORDERED: FAMOTIDINE 20 MG/2 ML VIAL ONE (04:25)
[2016-06-27] MEDS ORDERED: ACETAMINOPHEN 1000 MG/100 ML VIAL IV ONE (04:26)
[2016-06-27] MEDS ORDERED: CLINDAMYCIN PHOS 600 MG/4 ML VIAL ONE (04:59)
[2016-06-27] MEDS ORDERED: SUGAMMADEX SODIUM 200 MG/2 ML VIAL IV PUSH ONE ×2 (05:06)
[2016-06-27] MEDS ORDERED: HYDROmorphone HCL PF 2 MG/ML VIAL ONE (07:04)
--- NOTE | 2016-06-27 08:12 | HHI.PR ---
Immediate Post Op Note Procedure Date: Jun 27, 2016 Pre Op Diagnosis: SBO Post Op Diagnosis: Same Surgeon: Luis Medrano MD Attache(s): see or sheet Procedure: exploratory laparotomy, extensive HALEY, small bowel resection with primary anastomosis, placement of anti-adhesion barrier Findings: distended proximal small bowel, multiple pelvic adhesion Complications: none Specimen(s) removed: small bowel ileum Estimated blood loss: 500 Anesthesia: General Drains: None IVF (2900) Patient to: PACU Patient Condition: Good Luis Medrano MD Jun 27, 2016 08:12
[2016-06-27] MEDS ORDERED: fentaNYL CITRATE 250 MCG/5 ML AMP ONE (08:24)
[2016-06-27] MEDS: LACTATED RINGER'S 1000 ML IV SCH (08:30)
[2016-06-27] MEDS ORDERED: HYDROmorphone HCL PF 1 MG/ML VIAL ONE (08:46)
[2016-06-27] MEDS ORDERED: *HYDROmorphone PF 1 MG VIAL PERIprocedural Use ONLY ONE (08:57)
[2016-06-27] MEDS ORDERED: *hydrOXYzine 25 MG VIAL PERIprocedural Use ONLY IM ONE (08:58)
[2016-06-27] MEDS: metroNIDAZOLE 500 MG INJ 100 ML IV SCH ×2 (09:00→16:01)
[2016-06-27] MEDS: REMOVE OLD NICOTINE PATCH TD SCH (09:00)
[2016-06-27] MEDS: KETOROLAC TROMETHAMINE 30 MG/ML (IVP) VIAL IV PUSH SCH ×3 (09:00→21:20)
[2016-06-27] MEDS: PANTOPRAZOLE SODIUM 40 MG VIAL IV PUSH SCH (09:00)
[2016-06-27] MEDS: NS + KCL 20 MEQ INJ 1,000 ML IV SCH ×2 (09:00→16:04)
[2016-06-27] MEDS ORDERED: *ONDANSETRON 4 MG VIAL PERIprocedural Use ONLY ONE (09:11)
[2016-06-27] MEDS ORDERED: NALOXONE HCL 0.4 MG/ML AMP IV PRN ×3 (09:30→11:15)
[2016-06-27] MEDS ORDERED: diphenhydrAMINE HCL 25 MG CAP PO PRN (09:30)
[2016-06-27] MEDS ORDERED: Post-op Orders (for Pharmacy) MISC XX ONE (09:30)
[2016-06-27] MEDS ORDERED: PCA - TOTAL MG DILAUDID DELIVERED PER SHIFT OTHER SCH (09:30)
[2016-06-27] MEDS ORDERED: HYDROmorphone HCL PCA 6 MG/30 ML IV ONE (09:37)
[2016-06-27] MEDS: SODIUM CHLORIDE 0.9% FLUSH 5 ML FLUSH IVF SCH ×2 (10:27→21:00)
[2016-06-27] MEDS: NICOTINE 21 MG/24 HR PATCH TD SCH (10:28)
--- NOTE | 2016-06-27 11:24 | HHI.PR ---
Subjective Remarks Patient went back top the OR this morning due to persistent SBO. She is currently sedated from anesthesia. NGT in place. Objective Vitals Vital Signs Date Time Temp Pulse Resp B/P Pulse Ox O2 Delivery O2 Flow Rate FiO2 06/27/16 09:45 80 16 109/81 96 Nasal Cannula 2 06/27/16 09:30 84 16 134/70 95 Nasal Cannula 3 06/27/16 09:15 80 16 110/64 96 Nasal Cannula 3 06/27/16 09:00 82 16 111/82 94 Nasal Cannula 3 06/27/16 08:45 90 16 99/43 94 Nasal Cannula 3 06/27/16 08:30 76 16 111/71 94 Nasal Cannula 3 06/27/16 08:20 98.2 98 16 112/68 92 Nasal Cannula 3 06/27/16 04:00 98.1 57 20 130/59 94 06/27/16 01:09 58 06/27/16 00:00 98.1 68 20 150/67 93 06/27/16 00:00 Room Air 06/26/16 20:00 97.2 74 20 136/63 93 06/26/16 20:00 64 10 116/75 96 06/26/16 20:00 64 06/26/16 19:00 58 12 113/74 96 06/26/16 18:56 90 Nasal Cannula 2 06/26/16 18:48 98.0 62 16 108/55 92 06/26/16 16:10 62 06/26/16 16:00 97.2 53 18 113/58 93 06/26/16 12:00 98.6 63 18 111/56 92 I/O 06/26/16 06/26/16 06/26/16 06/27/16 06/27/16 06/27/16 07:00 15:00 23:00 07:00 15:00 23:00 Intake Total 1341 ml 1108 ml 640 ml 0 ml 200 ml Output Total 200 ml 200 ml 200 ml Balance 1141 ml 1108 ml 440 ml 0 ml 0 ml Intake Oral 240 ml 240 ml 0 ml IV Total 1101 ml 1108 ml 400 ml 200 ml Output Urine Total 200 ml 200 ml 200 ml # Voids 4 2 2 # Bowel Movements 0 Result Diagram: 06/26/1652906/26/16529 Objective Remarks GENERAL: Patient is sedated. CARDIOVASCULAR: Regular rate and rhythm without murmurs, gallops, or rubs. RESPIRATORY: Clear to auscultation. Breath sounds equal bilaterally. No wheezes , rales, or rhonchi. GASTROINTESTINAL: Abdomen soft, there is a midline dressing that appears clean and dry. Hypoactive bowel sounds. MUSCULOSKELETAL: Extremities without clubbing, cyanosis, or edema. NEURO: Sedated. Procedures Status post dx lap, lap ninfa, repair of enterotomy 06/17/16 06/27/16 exploratory laparotomy, extensive NINFA, small bowel resection with primary anastomosis, placement of anti-adhesion barrier A/P Problem List: (1) Small bowel obstruction ICD Code: K56.69 Status: Resolved (2) Hyperlipidemia ICD Code: E78.5 Status: Chronic (3) Tobacco abuse ICD Code: Z72.0 Status: Chronic (4) COPD (chronic obstructive pulmonary disease) ICD Code: J44.9 Status: Chronic (5) Nicotine dependence ICD Code: F17.200 Status: Chronic (6) Hypertension ICD Code: I10 Status: Chronic Assessment and Plan 61 year-old female with Distal small bowel obstruction/ileus: . Status post dx lap, lap ninfa, repair of enterotomy 06/17/16. Repeat CT abdomen/pelvis 06/25/16 with worsening dilated loops of bowel. - Gen Surgery following, 06/27/16 exploratory laparotomy, extensive NINFA, small bowel resection with primary anastomosis, placement of anti-adhesion barrier - Continue analgesic/antiemetic as well as Cipro and Flagyl IV. - Pain control. Hypertension: Much better controlled after adding amlodipine on 06/23/16. Continue Lopressor, pain control, Vasotec when necessary. History of COPD: Not in exacerbation. Continue Symbicort, DuoNeb when necessary. Patient previously counseled on tobacco cessation. GERD: Continue PPI, increase dose to 40 mg daily. Pepcid Nicotine dependence: nicotine patch DVT prophylaxis: bilateral SCDs Zunilda Glez MD Jun 27, 2016 11:23
[2016-06-27] MEDS: HYDROmorphone HCL PCA 6 MG/30 ML IV SCH ×2 (11:33→21:16)
[2016-06-27] MEDS ORDERED: PHENYLEPH/NS 1000 MCG/10 ML SYR IV ONE (12:00)
[2016-06-27] MEDS ORDERED: LACTATED RINGER'S 1000 ML INJ 1,000 ML IV ONE (12:00)
[2016-06-27] MEDS ORDERED: ePHEDrine/NS 25 MG/5 ML SYR IV ONE (12:00)
[2016-06-27] MEDS ORDERED: ONDANSETRON HCL 4 MG/2 ML VIAL IV PUSH ONE (12:00)
[2016-06-27] MEDS ORDERED: SODIUM CHLOR 0.9% 1000 ML INJ 2,000 ML IV ONE (12:00)
[2016-06-27] MEDS ORDERED: PROPOFOL 200 MG/20 ML AMP IV ONE (12:00)
[2016-06-27] MEDS: FAMOTIDINE 20 MG TAB PO SCH ×2 (12:38→21:20)
[2016-06-27] MEDS: METOPROLOL SUCCINATE 50 MG EXTENDED RELEASE TAB PO SCH (12:38)
[2016-06-27] MEDS: CIPROFLOXACIN 500 MG TAB PO SCH ×2 (12:38→21:20)
[2016-06-27] MEDS: DOCUSATE SODIUM 50 MG/SENNA 8.6 MG TAB PO SCH ×2 (12:39→21:00)
[2016-06-27] MEDS: amLODIPine BESYLATE 5 MG TAB PO SCH ×2 (12:39→12:47)
[2016-06-27 13:36] LABS: HEMATOCRIT 45.3 % (35.0-46.0); MEAN CELL VOLUME 87.1 FL (80.0-100.0); MEAN CORPUSCULAR HEMOGLOBIN 29.3 PG (27.0-34.0); MEAN CORPUSCULAR HGB CONC 33.6 % (32.0-36.0); PLATELET COUNT 257 TH/MM3 (150-450); RED CELL DISTRIBUTION WIDTH 13.2 % (11.6-17.2); REVIEW FLAG FINAL; WHITE BLOOD COUNT 21.8 TH/MM3 (4.0-11.0)
[2016-06-27 14:06] LABS: BICARBONATE 22.2 MEQ/L (21.0-32.0)
[2016-06-27] MEDS: PCA - TOTAL MG DILAUDID DELIVERED PER SHIFT SCH ×2 (14:29→21:20)
[2016-06-28] VITALS (9 sets, daily range): BP systolic 91–112; BP diastolic 50–55; PULSE 72–83; RESP 12–20; TEMP 97.4–99.7; O2SAT 91–95
[2016-06-28] MEDS: metroNIDAZOLE 500 MG INJ 100 ML IV SCH (00:08)
[2016-06-28] MEDS: NS + KCL 20 MEQ INJ 1,000 ML IV SCH ×3 (00:09→16:36)
[2016-06-28] MEDS: KETOROLAC TROMETHAMINE 30 MG/ML (IVP) VIAL IV PUSH SCH ×4 (02:14→20:31)
[2016-06-28] MEDS: HYDROmorphone HCL PCA 6 MG/30 ML IV SCH (03:42)
[2016-06-28] MEDS: HYDROmorphone HCL PF 2 MG/ML VIAL IV PRN ×4 (03:51→20:33)
[2016-06-28] MEDS: PCA - TOTAL MG DILAUDID DELIVERED PER SHIFT SCH (06:00)
[2016-06-28 06:53] LABS: HEMATOCRIT 39.9 % (35.0-46.0); MEAN CELL VOLUME 87.7 FL (80.0-100.0); MEAN CORPUSCULAR HEMOGLOBIN 28.8 PG (27.0-34.0); MEAN CORPUSCULAR HGB CONC 32.9 % (32.0-36.0); PLATELET COUNT 238 TH/MM3 (150-450); RED BLOOD COUNT 4.54 MIL/MM3 (4.00-5.30); RED CELL DISTRIBUTION WIDTH 13.3 % (11.6-17.2); REVIEW FLAG FINAL; WHITE BLOOD COUNT 18.5 TH/MM3 (4.0-11.0)
[2016-06-28 07:20] LABS: POTASSIUM 5.1 MEQ/L (3.5-5.1)
[2016-06-28] MEDS: amLODIPine BESYLATE 5 MG TAB PO SCH (07:58)
[2016-06-28] MEDS: FAMOTIDINE 20 MG TAB PO SCH ×2 (07:58→20:32)
[2016-06-28] MEDS: CIPROFLOXACIN 500 MG TAB PO SCH (07:58)
[2016-06-28] MEDS: METOPROLOL SUCCINATE 50 MG EXTENDED RELEASE TAB PO SCH (07:58)
[2016-06-28] MEDS: DOCUSATE SODIUM 50 MG/SENNA 8.6 MG TAB PO SCH ×2 (07:58→20:32)
[2016-06-28] MEDS: PANTOPRAZOLE SODIUM 40 MG VIAL IV PUSH SCH (07:58)
[2016-06-28] MEDS: SODIUM CHLORIDE 0.9% FLUSH 5 ML FLUSH IVF SCH ×2 (07:59→20:31)
[2016-06-28] MEDS: NICOTINE 21 MG/24 HR PATCH TD SCH (08:09)
[2016-06-28] MEDS: REMOVE OLD NICOTINE PATCH TD SCH (08:09)
--- NOTE | 2016-06-28 08:54 | HHI.PR ---
Subjective Subjective Notes states feeling better, c/o incisional pain, no nausea or vomiting Objective Vitals/I&O Vital Signs Date Time Temp Pulse Resp B/P Pulse Ox O2 Delivery O2 Flow Rate FiO2 06/28/16 06:00 18 06/28/16 04:52 97.4 73 91/54 94 06/27/16 21:25 Nasal Cannula 3.00 06/26/16 08:22 21 Labs Laboratory Tests Test 06/27/16 06/28/16 13:24 06:13 White Blood Count 21.8 18.5 Red Blood Count 5.20 4.54 Hemoglobin 15.2 13.1 Hematocrit 45.3 39.9 Mean Corpuscular Volume 87.1 87.7 Mean Corpuscular Hemoglobin 29.3 28.8 Mean Corpuscular Hemoglobin 33.6 32.9 Concent Red Cell Distribution Width 13.2 13.3 Platelet Count 257 238 Mean Platelet Volume 9.2 9.8 Sodium Level 138 138 Potassium Level 5.0 5.1 Chloride Level 107 107 Carbon Dioxide Level 22.2 23.0 Anion Gap 9 8 Blood Urea Nitrogen 10 13 Creatinine 1.11 0.86 Estimat Glomerular Filtration 50 67 Rate Random Glucose 149 123 Calcium Level 7.5 7.6 Radiology Last Impressions Small Bowel X-Ray 06/21/16 0700 Signed Impressions: Service Date/Time: Tuesday, June 21, 2016 08:54 - CONCLUSION: Unremarkable small bowel examination. No evidence of obstruction and no evidence of extravasation. Paramjit Lerner MD Abdomen/Pelvis CT 06/20/16 0000 Signed Impressions: Service Date/Time: Monday, June 20, 2016 18:42 - CONCLUSION: 1. Small bowel loops remain dilated to 3.4 cm most characteristic of an early or partial small bowel obstruction. Angulated small bowel loops in the lower pelvis suggest adhesions. 2. Loculated 5.2 cm fluid collection in the cul-de-sac without loculated air. 3. Dependent atelectasis or consolidation at both lung bases. Trace left pleural fluid. 4. No free air. Glenn Dougherty MD Abdomen X-Ray 06/17/16 0600 Signed Impressions: Service Date/Time: Friday, June 17, 2016 08:28 - CONCLUSION: 1. Continued findings of small bowel ileus. There has been no significant change when compared to the prior exam. Mitchell Sorenson MD Cardiovascular: Regular Lungs: Clear Abdomen: Non-distended, Other (incision scant dry blood) A/P Problem List: (1) Small bowel obstruction (2) GERD (gastroesophageal reflux disease) (3) Abdominal pain Assessment and Plan SBO PLAN s/p OR exploratory laparotomy HALEY, bowel resection POD 1- Doing better discussed with patient in detail NPO will start sips of clears d/c ng d/c freitas adjust pain meds- d/c court messenger Problem Qualifiers (1) Abdominal pain: Qualified Code: R10.84 - Generalized abdominal pain Luis Medrano MD Jun 28, 2016 08:54
[2016-06-28] MEDS: HEPARIN SODIUM - SQ 10,000 UNITS/ML VIAL SQ SCH ×2 (15:47→20:32)
--- NOTE | 2016-06-28 16:31 | HHI.PR ---
Subjective Remarks Patient reports that she is feeling better today. No nausea or vomiting. Pain is controlled. Tolerating a clear diet. Objective Vitals Vital Signs Date Time Temp Pulse Resp B/P Pulse Ox O2 Delivery O2 Flow Rate FiO2 06/28/16 12:00 98.1 72 20 91/50 92 06/28/16 11:20 93 21 06/28/16 10:19 Room Air 06/28/16 08:56 74 06/28/16 08:00 97.5 77 12 111/52 93 06/28/16 06:00 18 06/28/16 04:52 97.4 73 16 91/54 94 06/28/16 03:42 18 06/28/16 00:00 97.6 76 16 112/54 95 06/27/16 21:25 Nasal Cannula 3.00 06/27/16 21:20 18 06/27/16 21:16 18 06/27/16 20:09 75 06/27/16 20:00 98.0 87 16 112/68 95 I/O 06/27/16 06/27/16 06/27/16 06/28/16 06/28/16 06/28/16 07:00 15:00 23:00 07:00 15:00 23:00 Intake Total 0 ml 903 ml 215 ml 150 ml Output Total 275 ml 300 ml 150 ml Balance 0 ml 628 ml -85 ml 0 ml Intake Oral 0 ml 0 ml 120 ml IV Total 903 ml 215 ml 30 ml Output Urine Total 275 ml 300 ml 150 ml # Voids 2 # Bowel Movements 0 0 0 Result Diagram: 06/28/1661206/28/16612 Objective Remarks GENERAL: Patient is in no acute distress. CARDIOVASCULAR: Regular rate and rhythm without murmurs, gallops, or rubs. RESPIRATORY: Clear to auscultation. Breath sounds equal bilaterally. No wheezes , rales, or rhonchi. GASTROINTESTINAL: Abdomen soft, there is a midline dressing that appears clean and dry. Hypoactive bowel sounds. MUSCULOSKELETAL: Extremities without clubbing, cyanosis, or edema. NEURO: Alert and oriented. Normal speech. Procedures Status post dx lap, lap ninfa, repair of enterotomy 06/17/16 06/27/16 exploratory laparotomy, extensive NINFA, small bowel resection with primary anastomosis, placement of anti-adhesion barrier A/P Problem List: (1) Small bowel obstruction ICD Code: K56.69 Status: Resolved (2) Hyperlipidemia ICD Code: E78.5 Status: Chronic (3) Tobacco abuse ICD Code: Z72.0 Status: Chronic (4) COPD (chronic obstructive pulmonary disease) ICD Code: J44.9 Status: Chronic (5) Nicotine dependence ICD Code: F17.200 Status: Chronic (6) Hypertension ICD Code: I10 Status: Chronic Assessment and Plan 61 year-old female with Distal small bowel obstruction/ileus: . Status post dx lap, lap ninfa, repair of enterotomy 06/17/16. Repeat CT abdomen/pelvis 06/25/16 with worsening dilated loops of bowel. - Gen Surgery following, 06/27/16 exploratory laparotomy, extensive NINFA, small bowel resection with primary anastomosis, placement of anti-adhesion barrier - Continue analgesic/antiemetic. S/P Cipro and Flagyl - Pain control. Advance diet per general surgery. Hypertension: Much better controlled after adding amlodipine on 06/23/16. Continue Lopressor, pain control, Vasotec when necessary. History of COPD: Not in exacerbation. Continue Symbicort, DuoNeb when necessary. Patient previously counseled on tobacco cessation. GERD: Continue PPI. Pepcid Nicotine dependence: nicotine patch DVT prophylaxis: bilateral SCDs Zunilda Glez MD Jun 28, 2016 16:25
[2016-06-29] VITALS (7 sets, daily range): BP systolic 113–151; BP diastolic 58–73; PULSE 74–94; RESP 16–20; TEMP 97.6–98.2; O2SAT 92–96
[2016-06-29] MEDS: HYDROmorphone HCL PF 2 MG/ML VIAL IV PRN ×6 (00:33→20:30)
[2016-06-29] MEDS: NS + KCL 20 MEQ INJ 1,000 ML IV SCH ×2 (01:00→08:35)
[2016-06-29] MEDS: KETOROLAC TROMETHAMINE 30 MG/ML (IVP) VIAL IV PUSH SCH ×4 (03:00→20:32)
[2016-06-29] MEDS: HEPARIN SODIUM - SQ 10,000 UNITS/ML VIAL SQ SCH ×3 (04:41→20:32)
[2016-06-29] MEDS: LACTATED RINGER'S 1000 ML IV SCH (08:30)
[2016-06-29] MEDS: ONDANSETRON HCL 4 MG/2 ML VIAL IVP PRN (08:31)
[2016-06-29] MEDS: amLODIPine BESYLATE 5 MG TAB PO SCH (08:33)
[2016-06-29] MEDS: FAMOTIDINE 20 MG TAB PO SCH ×2 (08:34→20:30)
[2016-06-29] MEDS: DOCUSATE SODIUM 50 MG/SENNA 8.6 MG TAB PO SCH ×2 (08:34→20:30)
[2016-06-29] MEDS: NICOTINE 21 MG/24 HR PATCH TD SCH (08:34)
[2016-06-29] MEDS: REMOVE OLD NICOTINE PATCH TD SCH (08:34)
[2016-06-29] MEDS: PANTOPRAZOLE SODIUM 40 MG VIAL IV PUSH SCH (08:34)
[2016-06-29] MEDS: SODIUM CHLORIDE 0.9% FLUSH 5 ML FLUSH IVF SCH ×2 (08:35→21:19)
[2016-06-29] MEDS: METOPROLOL SUCCINATE 50 MG EXTENDED RELEASE TAB PO SCH (08:35)
--- NOTE | 2016-06-29 10:52 | HHI.PR ---
Subjective Subjective Notes Resting in bed Somewhat painful this morning but pain meds help Objective Vitals/I&O Vital Signs Date Time Temp Pulse Resp B/P Pulse Ox O2 Delivery O2 Flow Rate FiO2 06/29/16 09:33 18 06/29/16 04:00 98.2 93 140/69 95 06/28/16 20:30 Nasal Cannula 3.00 06/28/16 18:04 Radiology Last Impressions Small Bowel X-Ray 06/21/16 0700 Signed Impressions: Service Date/Time: Tuesday, June 21, 2016 08:54 - CONCLUSION: Unremarkable small bowel examination. No evidence of obstruction and no evidence of extravasation. Paramjit Lerner MD Abdomen/Pelvis CT 06/20/16 0000 Signed Impressions: Service Date/Time: Monday, June 20, 2016 18:42 - CONCLUSION: 1. Small bowel loops remain dilated to 3.4 cm most characteristic of an early or partial small bowel obstruction. Angulated small bowel loops in the lower pelvis suggest adhesions. 2. Loculated 5.2 cm fluid collection in the cul-de-sac without loculated air. 3. Dependent atelectasis or consolidation at both lung bases. Trace left pleural fluid. 4. No free air. Glenn Dougherty MD Abdomen X-Ray 06/17/16 0600 Signed Impressions: Service Date/Time: Friday, June 17, 2016 08:28 - CONCLUSION: 1. Continued findings of small bowel ileus. There has been no significant change when compared to the prior exam. Mitchell Sorenson MD Cardiovascular: Regular Lungs: Clear Abdomen: Other (midline incision---dressing replaced; no drainage; stapled ) Extremities: No edema Narrative Exam NGT removed A/P Problem List: (1) Small bowel obstruction (2) GERD (gastroesophageal reflux disease) (3) Abdominal pain Assessment and Plan 61 year old female with SBO -POD2 ex lap for SBO -Advance to full liquids---okay for dairy products -OOB and mobilize -Continue pain control Attending Statement pt seen at bedside slowly progressing still with some pain no vomiting Attestation The exam, history, and the medical decision-making described in the above note were completed with the assistance of the mid-level provider. I reviewed and agree with the findings presented. I attest that I had a [id number] encounter with the patient on the same day, and personally performed and documented my assessment and findings in the medical record. Problem Qualifiers (1) Abdominal pain: Qualified Code: R10.84 - Generalized abdominal pain Viridiana Kemp Jun 29, 2016 10:52 Luis Medrano MD Jul 06, 2016 12:38
--- NOTE | 2016-06-29 13:16 | HHI.PR ---
Subjective Remarks Patient reports that she is feeling better. Mild nausea this morning. Objective Vitals Vital Signs Date Time Temp Pulse Resp B/P Pulse Ox O2 Delivery O2 Flow Rate FiO2 06/29/16 09:33 18 06/29/16 08:54 18 06/29/16 08:34 98.1 88 18 151/73 92 06/29/16 04:00 98.2 93 19 140/69 95 06/29/16 00:01 98.1 94 20 137/64 96 06/28/16 20:30 Nasal Cannula 3.00 06/28/16 20:00 99.7 83 19 96/52 93 06/28/16 18:04 92 Nasal Cannula 2.00 06/28/16 16:00 99.5 81 16 106/55 91 I/O 06/28/16 06/28/16 06/28/16 06/29/16 06/29/16 06/29/16 07:00 15:00 23:00 07:00 15:00 23:00 Intake Total 150 ml 3072 ml 100 ml Output Total 150 ml 100 ml 50 ml Balance 0 ml 2972 ml 50 ml Intake Oral 120 ml 1200 ml 100 ml IV Total 30 ml 1872 ml Output Urine Total 150 ml 100 ml 50 ml # Voids 3 # Bowel Movements 0 0 Result Diagram: 06/28/1661206/28/16612 Objective Remarks GENERAL: Patient is in no acute distress. CARDIOVASCULAR: Regular rate and rhythm without murmurs, gallops, or rubs. RESPIRATORY: Clear to auscultation. Breath sounds equal bilaterally. No wheezes , rales, or rhonchi. GASTROINTESTINAL: Abdomen soft, there is a midline dressing that appears clean and dry. Hypoactive bowel sounds. MUSCULOSKELETAL: Extremities without clubbing, cyanosis, or edema. NEURO: Alert and oriented. Normal speech. Procedures Status post dx lap, lap ninfa, repair of enterotomy 06/17/16 06/27/16 exploratory laparotomy, extensive NINFA, small bowel resection with primary anastomosis, placement of anti-adhesion barrier A/P Problem List: (1) Small bowel obstruction ICD Code: K56.69 Status: Resolved (2) Hyperlipidemia ICD Code: E78.5 Status: Chronic (3) Tobacco abuse ICD Code: Z72.0 Status: Chronic (4) COPD (chronic obstructive pulmonary disease) ICD Code: J44.9 Status: Chronic (5) Nicotine dependence ICD Code: F17.200 Status: Chronic (6) Hypertension ICD Code: I10 Status: Chronic Assessment and Plan 61 year-old female with Distal small bowel obstruction/ileus: . Status post dx lap, lap ninfa, repair of enterotomy 06/17/16. Repeat CT abdomen/pelvis 06/25/16 with worsening dilated loops of bowel. - Gen Surgery following, 06/27/16 exploratory laparotomy, extensive NINFA, small bowel resection with primary anastomosis, placement of anti-adhesion barrier - Continue analgesic/antiemetic. S/P Cipro and Flagyl - Pain control. Advance diet per general surgery. Full liquid diet today. Continue to monitor. Hypertension: Much better controlled after adding amlodipine on 06/23/16. Continue Lopressor, pain control, Vasotec when necessary. History of COPD: Not in exacerbation. Continue Symbicort, DuoNeb when necessary. Patient previously counseled on tobacco cessation. GERD: Continue PPI. Pepcid Nicotine dependence: nicotine patch DVT prophylaxis: bilateral SCDs Zunilda Glez MD Jun 29, 2016 13:16
[2016-06-30] VITALS (9 sets, daily range): BP systolic 122–145; BP diastolic 68–81; PULSE 71–90; RESP 16–20; TEMP 97.5–98; O2SAT 90–94
[2016-06-30] MEDS: HYDROmorphone HCL PF 2 MG/ML VIAL IV PRN ×6 (00:34→20:21)
[2016-06-30] MEDS: KETOROLAC TROMETHAMINE 30 MG/ML (IVP) VIAL IV PUSH SCH ×4 (02:08→20:21)
[2016-06-30] MEDS: ONDANSETRON HCL 4 MG/2 ML VIAL IVP PRN ×2 (04:32→12:27)
[2016-06-30] MEDS: HEPARIN SODIUM - SQ 10,000 UNITS/ML VIAL SQ SCH ×3 (05:20→20:20)
[2016-06-30] MEDS: REMOVE OLD NICOTINE PATCH TD SCH (09:00)
[2016-06-30] MEDS: amLODIPine BESYLATE 5 MG TAB PO SCH (09:58)
[2016-06-30] MEDS: NICOTINE 21 MG/24 HR PATCH TD SCH (09:58)
[2016-06-30] MEDS: FAMOTIDINE 20 MG TAB PO SCH ×2 (09:58→20:20)
[2016-06-30] MEDS: DOCUSATE SODIUM 50 MG/SENNA 8.6 MG TAB PO SCH ×2 (09:58→20:21)
[2016-06-30] MEDS: METOPROLOL SUCCINATE 50 MG EXTENDED RELEASE TAB PO SCH (09:58)
[2016-06-30] MEDS: PANTOPRAZOLE SODIUM 40 MG VIAL IV PUSH SCH (09:59)
[2016-06-30] MEDS: SODIUM CHLORIDE 0.9% FLUSH 5 ML FLUSH IVF SCH ×2 (09:59→20:21)
--- NOTE | 2016-06-30 10:02 | HHI.PR ---
Subjective Remarks Patient tolerated a full liquid diet. She had a bowel movement this morning. She wants to advance diet slowly. Awaiting for surgeon. Reports pain at the site of incision. No nausea. Objective Vitals Vital Signs Date Time Temp Pulse Resp B/P Pulse Ox O2 Delivery O2 Flow Rate FiO2 06/30/16 08:00 98.0 78 18 127/68 93 06/30/16 04:00 97.7 90 20 144/79 90 06/30/16 00:03 97.6 84 16 133/68 06/29/16 21:00 Room Air 06/29/16 20:45 92 Nasal Cannula 2.00 06/29/16 20:15 97.6 85 16 137/71 92 06/29/16 17:01 20 06/29/16 17:01 20 06/29/16 16:12 98.1 89 18 139/71 93 06/29/16 12:10 97.7 74 16 113/58 94 I/O 06/29/16 06/29/16 06/29/16 06/30/16 06/30/16 06/30/16 07:00 15:00 23:00 07:00 15:00 23:00 Intake Total 100 ml 360 ml 420 ml Output Total 50 ml 3 ml Balance 50 ml 360 ml 417 ml Intake Oral 100 ml 360 ml 420 ml Output Urine Total 50 ml 3 ml # Voids 2 3 # Bowel Movements 1 Result Diagram: 06/28/1661206/28/16 06 Objective Remarks GENERAL: Patient is in no acute distress. CARDIOVASCULAR: Regular rate and rhythm without murmurs, gallops, or rubs. RESPIRATORY: Clear to auscultation. Breath sounds equal bilaterally. No wheezes , rales, or rhonchi. GASTROINTESTINAL: Abdomen soft, there is a midline dressing that appears clean and dry. normal and active bowel sounds. MUSCULOSKELETAL: Extremities without clubbing, cyanosis, or edema. NEURO: Alert and oriented. Normal speech. Procedures Status post dx lap, lap ninfa, repair of enterotomy 06/17/16 06/27/16 exploratory laparotomy, extensive NINFA, small bowel resection with primary anastomosis, placement of anti-adhesion barrier A/P Problem List: (1) Small bowel obstruction ICD Code: K56.69 Status: Resolved (2) Hyperlipidemia ICD Code: E78.5 Status: Chronic (3) Tobacco abuse ICD Code: Z72.0 Status: Chronic (4) COPD (chronic obstructive pulmonary disease) ICD Code: J44.9 Status: Chronic (5) Nicotine dependence ICD Code: F17.200 Status: Chronic (6) Hypertension ICD Code: I10 Status: Chronic Assessment and Plan 61 year-old female with Distal small bowel obstruction/ileus: . Status post dx lap, lap ninfa, repair of enterotomy 06/17/16. Repeat CT abdomen/pelvis 06/25/16 with worsening dilated loops of bowel. - Gen Surgery following, 06/27/16 exploratory laparotomy, extensive NINFA, small bowel resection with primary anastomosis, placement of anti-adhesion barrier - Continue analgesic/antiemetic. S/P Cipro and Flagyl - Pain control. Diet per general surgery. - Encourage patient to get out of bed. She refused heparin for DVT prophylaxis and she tends to just stay in bed. Hypertension: Much better controlled after adding amlodipine on 06/23/16. Continue Lopressor, pain control, Vasotec when necessary. History of COPD: Not in exacerbation. Continue Symbicort, DuoNeb when necessary. Patient previously counseled on tobacco cessation. GERD: Continue PPI. Pepcid Nicotine dependence: nicotine patch DVT prophylaxis: bilateral SCDs. Patient refused heparin. She was made aware of the possible complications. Discharge Planning Diet to be advanced per Gen surgery. Once cleared from a Surgical standpoint. She can go home with home health and PT. Zunilda Glez MD Jun 30, 2016 10:01
--- NOTE | 2016-06-30 10:05 | HHI.FF ---
Face to Face Verification Diagnosis: (1) Small bowel obstruction (2) Post-operative state (3) Hypertension (4) COPD (chronic obstructive pulmonary disease) (5) Tobacco abuse (6) Abdominal pain (7) Physical deconditioning Physical Therapy Order: Evaluate and Treat, Improve ambulation, Strength and gait training Home Health Nursing Order: Medical education Signs/symptoms of disease process Medication education-adverse effect Wound care and dressing changes I have seen patient Rose Marie Ernandez on 06/30/16. My clinical findings support the need for the requested home health care services because: Deconditioned w/ increased weakness I certify that my clinical findings support that this patient is homebound because: Post-op weakness Need for psychosocial assistance Zunilda Glez MD Jun 30, 2016 10:05
[2016-06-30 12:17] LABS: HEMATOCRIT 38.1 % (35.0-46.0); MEAN CORPUSCULAR HEMOGLOBIN 29.1 PG (27.0-34.0); MEAN CORPUSCULAR HGB CONC 33.1 % (32.0-36.0); PLATELET COUNT 237 TH/MM3 (150-450); RED BLOOD COUNT 4.33 MIL/MM3 (4.00-5.30); RED CELL DISTRIBUTION WIDTH 13.5 % (11.6-17.2); REVIEW FLAG FINAL
[2016-06-30 12:37] LABS: BICARBONATE 23.8 MEQ/L (21.0-32.0); POTASSIUM 3.7 MEQ/L (3.5-5.1)
[2016-06-30] MEDS: CEPHALEXIN MONOHYDRATE 500 MG CAP PO SCH ×2 (16:09→20:20)
[2016-07-01] VITALS (7 sets, daily range): BP systolic 130–165; BP diastolic 63–83; PULSE 71–80; RESP 18–20; TEMP 97.5–98.2; O2SAT 93–95
[2016-07-01] MEDS: HYDROmorphone HCL PF 2 MG/ML VIAL IV PRN ×6 (00:09→20:34)
[2016-07-01] MEDS: KETOROLAC TROMETHAMINE 30 MG/ML (IVP) VIAL IV PUSH SCH ×4 (03:00→20:33)
[2016-07-01] MEDS: HEPARIN SODIUM - SQ 10,000 UNITS/ML VIAL SQ SCH ×3 (05:38→20:34)
[2016-07-01] MEDS: CEPHALEXIN MONOHYDRATE 500 MG CAP PO SCH ×3 (06:17→20:32)
[2016-07-01 07:03] LABS: BICARBONATE 25.4 MEQ/L (21.0-32.0); POTASSIUM 3.3 MEQ/L (3.5-5.1)
[2016-07-01 07:15] LABS: HEMATOCRIT 34.6 % (35.0-46.0); MEAN CELL VOLUME 86.1 FL (80.0-100.0); MEAN CORPUSCULAR HEMOGLOBIN 29.7 PG (27.0-34.0); MEAN CORPUSCULAR HGB CONC 34.5 % (32.0-36.0); PLATELET COUNT 244 TH/MM3 (150-450); RED BLOOD COUNT 4.02 MIL/MM3 (4.00-5.30); RED CELL DISTRIBUTION WIDTH 13.3 % (11.6-17.2); REVIEW FLAG FINAL; WHITE BLOOD COUNT 10.2 TH/MM3 (4.0-11.0)
[2016-07-01] MEDS: REMOVE OLD NICOTINE PATCH TD SCH (08:05)
[2016-07-01] MEDS: DOCUSATE SODIUM 50 MG/SENNA 8.6 MG TAB PO SCH ×2 (08:05→20:33)
[2016-07-01] MEDS: METOPROLOL SUCCINATE 50 MG EXTENDED RELEASE TAB PO SCH (08:05)
[2016-07-01] MEDS: NICOTINE 21 MG/24 HR PATCH TD SCH (08:05)
[2016-07-01] MEDS: PANTOPRAZOLE SODIUM 40 MG VIAL IV PUSH SCH (08:05)
[2016-07-01] MEDS: FAMOTIDINE 20 MG TAB PO SCH ×2 (08:05→20:33)
[2016-07-01] MEDS: amLODIPine BESYLATE 5 MG TAB PO SCH (08:06)
[2016-07-01] MEDS: SODIUM CHLORIDE 0.9% FLUSH 5 ML FLUSH IVF SCH ×2 (08:06→20:33)
[2016-07-01] MEDS: LACTATED RINGER'S 1000 ML IV SCH (08:30)
[2016-07-01] MEDS: ONDANSETRON HCL 4 MG/2 ML VIAL IVP PRN ×2 (12:31→17:45)
--- NOTE | 2016-07-01 13:21 | MP ---
cc: PRECIOUS MEDRANO MD DATE OF SURGERY 06/27/2016 PREOPERATIVE DIAGNOSIS Small-bowel obstruction destruction, adhesion POSTOPERATIVE DIAGNOSIS Small-bowel obstruction destruction, adhesion SURGEON Dr. Precious Medrano TEXT[employer] SUPERVISOR See OR sheet ANESTHESIA GETA PROCEDURE PERFORMED 1. Exploratory laparotomy 2. Extensive lysis of adhesions greater than 55 minutes. 3. Small bowel resection with primary anastomosis. 4. Placement of an anti-adhesion barrier IV FLUIDS 2900 cc ESTIMATED BLOOD LOSS 500 cc DRAINS None COMPLICATIONS None SPECIMENS Small bowel, ileum FINDINGS Adhesions with obstruction to the mid distal ileum, tenuous friable bowel. INDICATION The patient is a 51-year-old female who presented with significant abdominal pain, nausea, vomiting. She underwent a CT scan with the finding of a small bowel obstruction. She went to the operating room for diagnostic laparoscopy and laparoscopic lysis of adhesions. She was sent to the floor and continued observation. She had slowly intermittent improvement. She had CT scans showing contrast passing into the colon, however, the patient had intermittent vomiting and slow to progress. The patient had some persistence in her small bowel dilation, therefore a decision was made for exploration and possible bowel resection, possible lysis of adhesion. This was discussed with the patient in detail. DETAILS OF THE PROCEDURE The patient was taken to the operative suite, placed in the supine position. She was prepped and draped in the usual sterile fashion after induction of general tracheal anesthesia. A brief time-out done stating correct patient, procedure, surgical site and we were all in agreement with this. Attention directed to the midline where a left 15 blade scalpel was used to incise the skin around the umbilicus and caudally. Further dissection done with electro Bovie cautery. The fascia was identified. A small alice incision made. Mets used intraabdominally. The incision extended both distally and cephalad with electro Bovie cautery. On a cursory inspection, there was noted to be some dilated small bowel. This was slowly mobilized and brought into the field. A Bookwalter retractor placed for further exposure. Upon running the bowel down to the pelvis, there was noted to be two small bowel loops distally kinked in the pelvic cavity. This was noted to be very stuck and took some time using Metzenbaum scissors and electro Bovie cautery to lyse adhesions in order to fully mobilize and identify and completely run the small bowel. After extensive mobilization, the bowel was noted to be free. There was continuous bowel with questionable integrity therefore at this point, decision was made to do a small bowel resection. Two small windows made in the mesentery near the bowel. Endo-POLO blue load was used to transect a small short segment approximately 6 cm. Bowel was transected and Rosario clamps used x2 with 2-0 ties to clamp and cut and suture ligate the mesenteric vessels. The specimen was then passed off. The two ends were placed in apposition. 3-0 silk stay sutures were in place to approximate the antimesenteric borders. Electro Bovie cautery used to incise the corner of the staple line on the proximal bowel. Pool suction used to completely decompress the bowel. The bowel was noted to be very thin and dilated. The small bowel contents were milked back through to the pool suction irrigation system and completely removed. Next, continuation in the fashion of a stapled primary anastomosis. A small enterotomy made in the distal small bowel. The Endo-POLO blue load stapler was used to create through and through air into the small bowel. The enterotomy remaining was then fashioned with an Endo-POLO blue load stapler. Next, Lembert sutures were used to reinforce the staple line with 3-0 silk pop-off's. Next, the mesenteric defect was closed with two 3-0 silk [id number]. Palpation of the internal anastomosis ring noted to be viable and patent. The abdomen was then irrigated with two liters of normal saline. Next, an anti-adhesive border, Seprafilm was placed within the pelvic cavity to minimize further adhesions to the pelvis. The bowel was then run from distal to proximal noted to be completely viable, however, this was dilated, but now decompressed after removal of significant fluid. The rest of the bowel was pink and contact without significant adhesions and viable. Omentum was noted to be adhesed and stuck in the left mid quadrant. Following this, the abdomen was closed with #1 looped PDS x2 in running fashion was done to approximate the fashion. Electro Bovie cautery was used for hemostasis. The skin was closed with otis. All lap and instrument counts were correct at the end of the procedure. No intraoperative complications. The patient tolerated procedure well. The patient was extubated and taken to PACU. MD CHIP Olivier /9:49 AM /1:02 PM
--- NOTE | 2016-07-01 15:42 | HHI.PR ---
Subjective Remarks Still in abdominal pain 7 out of 10, little nauseous no vomiting, she had a bowel movement very small amount that was watery this morning Stated she saw the surgeon there increasing her pain medication, she told me they found infection on the surgical site Calcium 3.3 today and replace with 40 mEq by mouth 1 Objective Vitals Vital Signs Date Time Temp Pulse Resp B/P Pulse Ox O2 Delivery O2 Flow Rate FiO2 07/01/16 13:03 15 07/01/16 08:09 93 21 07/01/16 08:00 97.8 78 18 154/73 93 07/01/16 08:00 97.6 71 18 131/63 93 07/01/16 04:00 97.5 77 20 145/77 93 07/01/16 00:00 97.7 80 20 130/69 93 06/30/16 22:10 93 Nasal Cannula 2.00 06/30/16 20:15 Nasal Cannula 3.00 06/30/16 20:00 97.9 76 18 122/70 92 06/30/16 17:04 81 06/30/16 16:00 97.5 79 18 145/81 93 I/O 06/30/16 06/30/16 06/30/16 07/01/16 07/01/16 07/01/16 07:00 15:00 23:00 07:00 15:00 23:00 Intake Total 420 ml 480 ml 244 ml 282 ml Output Total 3 ml Balance 417 ml 480 ml 244 ml 282 ml Intake Oral 420 ml 480 ml 240 ml 280 ml IV Total 4 ml 2 ml Output Urine Total 3 ml # Voids 3 3 5 # Bowel Movements 0 0 Result Diagram: 07/01/16 0536 07/01/16 0536 Objective Remarks GENERAL: This is a well-nourished, well-developed patient, in no apparent distress. SKIN: No rashes, warm and dry HEAD: Atraumatic. Normocephalic. EYES: Pupils equal round and reactive. Extraocular motions intact. No scleral icterus. ENT: Nose without bleeding, or drainage, Airway patent. NECK: Trachea midline. Supple CARDIOVASCULAR: Regular rate and rhythm without murmurs, gallops, or rubs. RESPIRATORY: Fair air entry bilaterally. No wheezes, rales, or rhonchi. GASTROINTESTINAL: Abdomen and surgical binder, positive bowel sounds MUSCULOSKELETAL: Extremities without clubbing, cyanosis, or edema. Pedal pulses appreciated NEUROLOGICAL: Awake and alert. Moves all extremity. Normal speech.no focal neurological deficit Procedures Status post dx lap, lap ninfa, repair of enterotomy 06/17/16 06/27/16 exploratory laparotomy, extensive NINFA, small bowel resection with primary anastomosis, placement of anti-adhesion barrier A/P Problem List: (1) Small bowel obstruction ICD Code: K56.69 Status: Resolved (2) Hyperlipidemia ICD Code: E78.5 Status: Chronic (3) Tobacco abuse ICD Code: Z72.0 Status: Chronic (4) COPD (chronic obstructive pulmonary disease) ICD Code: J44.9 Status: Chronic (5) Nicotine dependence ICD Code: F17.200 Status: Chronic (6) Hypertension ICD Code: I10 Status: Chronic Assessment and Plan 61 year-old female with Distal small bowel obstruction/ileus: . Status post dx lap, lap ninfa, repair of enterotomy 06/17/16. Repeat CT abdomen/pelvis 06/25/16 with worsening dilated loops of bowel. - Gen Surgery following, 06/27/16 exploratory laparotomy, extensive NINFA, small bowel resection with primary anastomosis, placement of anti-adhesion barrier - Continue analgesic/antiemetic. S/P Cipro and Flagyl - Pain control. Diet per general surgery. - Encourage ambulation out of bed. She refused heparin for DVT prophylaxis and she tends to just stay in bed. Hypertension: Much better controlled after adding amlodipine on 06/23/16. Continue Lopressor, pain control, Vasotec when necessary. History of COPD: Not in exacerbation. Continue Symbicort, DuoNeb when necessary. Patient previously counseled on tobacco cessation. GERD: Continue PPI. Pepcid Nicotine dependence: nicotine patch DVT prophylaxis: bilateral SCDs. Patient refused heparin. She was made aware of the possible complications. Discharge Planning When cleared by surgery Jose rAboleda MD Jul 01, 2016 15:42
[2016-07-01] MEDS ORDERED: POTASSIUM CHLORIDE 20 MEQ CONTROLLED RELEASE TAB PO ONE (16:00)
[2016-07-01] MEDS: ACETAMINOPHEN/HYDROcodone 325 MG/10 MG TAB PO PRN ×2 (17:43→22:29)
[2016-07-02] VITALS (9 sets, daily range): BP systolic 127–140; BP diastolic 64–80; PULSE 66–84; RESP 18; TEMP 97.7–98.1; O2SAT 91–95
[2016-07-02] MEDS: HYDROmorphone HCL PF 2 MG/ML VIAL IV PRN ×5 (00:35→19:19)
[2016-07-02] MEDS: KETOROLAC TROMETHAMINE 30 MG/ML (IVP) VIAL IV PUSH SCH (02:54)
[2016-07-02] MEDS: ACETAMINOPHEN/HYDROcodone 325 MG/10 MG TAB PO PRN ×5 (03:22→20:54)
[2016-07-02] MEDS: HEPARIN SODIUM - SQ 10,000 UNITS/ML VIAL SQ SCH ×3 (04:46→20:55)
[2016-07-02] MEDS: CEPHALEXIN MONOHYDRATE 500 MG CAP PO SCH ×3 (04:47→20:54)
--- NOTE | 2016-07-02 07:41 | HHI.PR ---
Subjective Subjective Notes feels better, tolerating po no fever Objective Vitals/I&O Vital Signs Date Time Temp Pulse Resp B/P Pulse Ox O2 Delivery O2 Flow Rate FiO2 07/02/16 04:00 98.0 76 18 128/72 94 07/01/16 20:01 Nasal Cannula 3.00 07/01/16 08:09 21 Radiology Last Impressions Small Bowel X-Ray 06/21/16 0700 Signed Impressions: Service Date/Time: Tuesday, June 21, 2016 08:54 - CONCLUSION: Unremarkable small bowel examination. No evidence of obstruction and no evidence of extravasation. Paramjit Lerner MD Abdomen/Pelvis CT 06/20/16 0000 Signed Impressions: Service Date/Time: Monday, June 20, 2016 18:42 - CONCLUSION: 1. Small bowel loops remain dilated to 3.4 cm most characteristic of an early or partial small bowel obstruction. Angulated small bowel loops in the lower pelvis suggest adhesions. 2. Loculated 5.2 cm fluid collection in the cul-de-sac without loculated air. 3. Dependent atelectasis or consolidation at both lung bases. Trace left pleural fluid. 4. No free air. Glenn Dougherty MD Abdomen X-Ray 06/17/16 0600 Signed Impressions: Service Date/Time: Friday, June 17, 2016 08:28 - CONCLUSION: 1. Continued findings of small bowel ileus. There has been no significant change when compared to the prior exam. Mitchell Sorenson MD Cardiovascular: Regular Lungs: Clear Abdomen: Other (mild ttp, incision with packing wet to dry) A/P Problem List: (1) Small bowel obstruction (2) GERD (gastroesophageal reflux disease) (3) Abdominal pain Assessment and Plan SBO PLAN s/p OR exploratory laparotomy HALEY, bowel resection POD 10- Doing better discussed with patient in detail reg diet adjust pain meds add lortab po, iv for breakthough pack wound oob dvt ppx Problem Qualifiers (1) Abdominal pain: Qualified Code: R10.84 - Generalized abdominal pain Luis Merdano MD Jul 02, 2016 07:41
[2016-07-02] MEDS: LACTATED RINGER'S 1000 ML IV SCH (07:43)
--- NOTE | 2016-07-02 07:44 | HHI.PR ---
Subjective Subjective Notes DATE 07/01/16 C/o pain at incision site, decreased po intake, no fevers Objective Vitals/I&O Vital Signs Date Time Temp Pulse Resp B/P Pulse Ox O2 Delivery O2 Flow Rate FiO2 07/02/16 04:00 98.0 76 18 128/72 94 07/01/16 20:01 Nasal Cannula 3.00 07/01/16 08:09 21 Radiology Last Impressions Small Bowel X-Ray 06/21/16 0700 Signed Impressions: Service Date/Time: Tuesday, June 21, 2016 08:54 - CONCLUSION: Unremarkable small bowel examination. No evidence of obstruction and no evidence of extravasation. Paramjit Lerner MD Abdomen/Pelvis CT 06/20/16 0000 Signed Impressions: Service Date/Time: Monday, June 20, 2016 18:42 - CONCLUSION: 1. Small bowel loops remain dilated to 3.4 cm most characteristic of an early or partial small bowel obstruction. Angulated small bowel loops in the lower pelvis suggest adhesions. 2. Loculated 5.2 cm fluid collection in the cul-de-sac without loculated air. 3. Dependent atelectasis or consolidation at both lung bases. Trace left pleural fluid. 4. No free air. Glenn Dougherty MD Abdomen X-Ray 06/17/16 0600 Signed Impressions: Service Date/Time: Friday, June 17, 2016 08:28 - CONCLUSION: 1. Continued findings of small bowel ileus. There has been no significant change when compared to the prior exam. Mitchell Sorenson MD Cardiovascular: Regular Lungs: Clear Abdomen: Other (mild erythema around wound) A/P Problem List: (1) Small bowel obstruction (2) GERD (gastroesophageal reflux disease) (3) Abdominal pain Assessment and Plan SBO PLAN s/p dx lap/OR exploratory laparotomy HALEY, bowel resection POD 9/3- Doing better reg diet pack wound oob dvt ppx Problem Qualifiers (1) Abdominal pain: Qualified Code: R10.84 - Generalized abdominal pain Luis Merdano MD Jul 02, 2016 07:44
[2016-07-02] MEDS: FAMOTIDINE 20 MG TAB PO SCH ×2 (08:39→20:54)
[2016-07-02] MEDS: DOCUSATE SODIUM 50 MG/SENNA 8.6 MG TAB PO SCH ×2 (08:39→20:54)
[2016-07-02] MEDS: amLODIPine BESYLATE 5 MG TAB PO SCH (08:39)
[2016-07-02] MEDS: METOPROLOL SUCCINATE 50 MG EXTENDED RELEASE TAB PO SCH (08:39)
[2016-07-02] MEDS: NICOTINE 21 MG/24 HR PATCH TD SCH (08:39)
[2016-07-02] MEDS: SODIUM CHLORIDE 0.9% FLUSH 5 ML FLUSH IVF SCH ×2 (08:40→20:54)
[2016-07-02] MEDS: REMOVE OLD NICOTINE PATCH TD SCH (08:40)
[2016-07-02] MEDS: PANTOPRAZOLE SODIUM 40 MG VIAL IV PUSH SCH (10:38)
[2016-07-02 11:29] LABS: HEMATOCRIT 36.1 % (35.0-46.0); MEAN CELL VOLUME 86.2 FL (80.0-100.0); MEAN CORPUSCULAR HEMOGLOBIN 29.3 PG (27.0-34.0); PLATELET COUNT 329 TH/MM3 (150-450); RED BLOOD COUNT 4.18 MIL/MM3 (4.00-5.30); RED CELL DISTRIBUTION WIDTH 13.2 % (11.6-17.2); REVIEW FLAG FINAL; WHITE BLOOD COUNT 9.5 TH/MM3 (4.0-11.0)
[2016-07-02 11:52] LABS: BICARBONATE 30.1 MEQ/L (21.0-32.0); POTASSIUM 3.6 MEQ/L (3.5-5.1)
--- NOTE | 2016-07-02 12:28 | HHI.PR ---
Subjective Remarks Patient resting comfortably in bed No fever or chills Denied having flatus or bowel movement still She had her abdominal wound VAC change the surgeon today Objective Vitals Vital Signs Date Time Temp Pulse Resp B/P Pulse Ox O2 Delivery O2 Flow Rate FiO2 07/02/16 12:24 94 21 07/02/16 08:09 97.7 66 18 128/66 95 07/02/16 08:00 Room Air 07/02/16 04:00 98.0 76 18 128/72 94 07/02/16 00:00 98.0 84 18 140/80 95 07/01/16 20:16 74 07/01/16 20:01 Nasal Cannula 3.00 07/01/16 20:00 98.0 76 18 165/76 95 07/01/16 16:55 20 07/01/16 16:00 98.2 75 18 155/83 94 I/O 07/01/16 07/01/16 07/01/16 07/02/16 07/02/16 07/02/16 07:00 15:00 23:00 07:00 15:00 23:00 Intake Total 282 ml 480 ml 480 ml 244 ml Balance 282 ml 480 ml 480 ml 244 ml Intake Oral 280 ml 480 ml 480 ml 240 ml IV Total 2 ml 4 ml # Voids 5 6 1 2 # Bowel Movements 0 1 0 0 Result Diagram: 07/02/16 1104 07/02/16 1104 Objective Remarks GENERAL: This is a well-nourished, well-developed patient, in no apparent distress. SKIN: No rashes, warm and dry HEAD: Atraumatic. Normocephalic. EYES: Pupils equal round and reactive. Extraocular motions intact. No scleral icterus. ENT: Nose without bleeding, or drainage, Airway patent. NECK: Trachea midline. Supple CARDIOVASCULAR: Regular rate and rhythm without murmurs, gallops, or rubs. RESPIRATORY: Fair air entry bilaterally. No wheezes, rales, or rhonchi. GASTROINTESTINAL: Abdomen and surgical binder, positive bowel sounds MUSCULOSKELETAL: Extremities without clubbing, cyanosis, or edema. Pedal pulses appreciated NEUROLOGICAL: Awake and alert. Moves all extremity. Normal speech.no focal neurological deficit Procedures Status post dx lap, lap ninfa, repair of enterotomy 06/17/16 06/27/16 exploratory laparotomy, extensive NINFA, small bowel resection with primary anastomosis, placement of anti-adhesion barrier A/P Problem List: (1) Small bowel obstruction ICD Code: K56.69 Status: Resolved (2) Hyperlipidemia ICD Code: E78.5 Status: Chronic (3) Tobacco abuse ICD Code: Z72.0 Status: Chronic (4) COPD (chronic obstructive pulmonary disease) ICD Code: J44.9 Status: Chronic (5) Nicotine dependence ICD Code: F17.200 Status: Chronic (6) Hypertension ICD Code: I10 Status: Chronic Assessment and Plan 61 year-old female with Distal small bowel obstruction/ileus: . Status post dx lap, lap ninfa, repair of enterotomy 06/17/16. Repeat CT abdomen/pelvis 06/25/16 with worsening dilated loops of bowel. Postop ileus - Gen Surgery following, 06/27/16 exploratory laparotomy, extensive NINFA, small bowel resection with primary anastomosis, placement of anti-adhesion barrier - Continue analgesic/antiemetic. S/P Cipro and Flagyl - Pain control. Diet per general surgery. - Encourage ambulation out of bed. She refused heparin for DVT prophylaxis and she tends to just stay in bed. -Abdominal Wound packing change 07/02/16 by surgery Hypertension: Much better controlled after adding amlodipine on 06/23/16. Continue Lopressor, pain control, Vasotec when necessary. History of COPD: Not in exacerbation. Continue Symbicort, DuoNeb when necessary. Patient previously counseled on tobacco cessation. GERD: Continue PPI. Pepcid Nicotine dependence: nicotine patch DVT prophylaxis: bilateral SCDs. Patient refused heparin. She was made aware of the possible complications. Discharge Planning When cleared by surgery Jose Arboleda MD Jul 02, 2016 12:28
[2016-07-02] MEDS: ONDANSETRON HCL 4 MG/2 ML VIAL IVP PRN (13:31)
[2016-07-03] VITALS (7 sets, daily range): BP systolic 122–134; BP diastolic 58–73; PULSE 66–79; RESP 16–20; TEMP 97.4–98.4; O2SAT 92–95
[2016-07-03] MEDS: SODIUM CHLORIDE 0.9% FLUSH 5 ML FLUSH IVF PRN (03:22)
[2016-07-03] MEDS: HYDROmorphone HCL PF 2 MG/ML VIAL IV PRN ×3 (03:22→12:57)
[2016-07-03] MEDS: ACETAMINOPHEN/HYDROcodone 325 MG/10 MG TAB PO PRN ×5 (05:15→22:41)
[2016-07-03] MEDS: CEPHALEXIN MONOHYDRATE 500 MG CAP PO SCH ×3 (05:16→20:13)
[2016-07-03] MEDS: HEPARIN SODIUM - SQ 10,000 UNITS/ML VIAL SQ SCH ×3 (05:17→20:14)
[2016-07-03] MEDS: LACTATED RINGER'S 1000 ML IV SCH (08:13)
[2016-07-03] MEDS: FAMOTIDINE 20 MG TAB PO SCH ×2 (08:36→20:10)
[2016-07-03] MEDS: METOPROLOL SUCCINATE 50 MG EXTENDED RELEASE TAB PO SCH (08:36)
[2016-07-03] MEDS: amLODIPine BESYLATE 5 MG TAB PO SCH (08:36)
[2016-07-03] MEDS: PANTOPRAZOLE SODIUM 40 MG VIAL IV PUSH SCH (08:36)
[2016-07-03] MEDS: DOCUSATE SODIUM 50 MG/SENNA 8.6 MG TAB PO SCH ×2 (08:36→20:10)
[2016-07-03] MEDS: NICOTINE 21 MG/24 HR PATCH TD SCH (08:36)
[2016-07-03] MEDS: ONDANSETRON HCL 4 MG/2 ML VIAL IVP PRN (08:37)
[2016-07-03] MEDS: SODIUM CHLORIDE 0.9% FLUSH 5 ML FLUSH IVF SCH ×2 (08:37→22:43)
[2016-07-03] MEDS: REMOVE OLD NICOTINE PATCH TD SCH (08:37)
[2016-07-03] MEDS ORDERED: MAGNESIUM CITRATE SOLN 300 ML BTL PO ONE (12:00)
[2016-07-03] MEDS ORDERED: HYDR-3583 PO (14:04)
[2016-07-03] MEDS ORDERED: AMLO5 PO (14:04)
--- NOTE | 2016-07-03 14:05 | HHI.FF ---
Face to Face Verification Diagnosis: (1) Physical deconditioning (2) Abdominal pain (3) GERD (gastroesophageal reflux disease) (4) Small bowel obstruction (5) Post-operative state Physical Therapy Order: Evaluate and Treat Occupational Therapy Order: Evaluate and Treat Home Health Nursing Order: Medical education I have seen patient Rose Marie Ernandez on 07/03/16. My clinical findings support the need for the requested home health care services because: Patient has SOB Deconditioned w/ increased weakness I certify that my clinical findings support that this patient is homebound because: Post-op weakness Jose Arboleda MD Jul 03, 2016 14:05
--- NOTE | 2016-07-03 15:09 | HHI.PR ---
Subjective Remarks Patient still completely denied any bowel movements and flatus No chest pain or short of breath, no fever or chills She had abdominal wound dressing change today Surgery following Objective Vitals Vital Signs Date Time Temp Pulse Resp B/P Pulse Ox O2 Delivery O2 Flow Rate FiO2 07/03/16 12:00 97.8 72 16 134/65 95 07/03/16 08:00 Room Air 07/03/16 08:00 97.4 70 16 124/70 93 07/03/16 04:00 98.0 77 18 130/60 93 07/03/16 00:00 98.4 79 18 127/73 92 07/02/16 21:01 21 07/02/16 20:00 98.0 80 18 140/79 92 07/02/16 19:59 68 07/02/16 16:00 98.1 67 18 131/64 94 I/O 07/02/16 07/02/16 07/02/16 07/03/16 07/03/16 07/03/16 07:00 15:00 23:00 07:00 15:00 23:00 Intake Total 244 ml 480 ml 120 ml 240 ml Output Total 700 ml Balance 244 ml 480 ml 120 ml -460 ml Intake Oral 240 ml 480 ml 120 ml 240 ml IV Total 4 ml Output Urine Total 700 ml # Voids 2 5 1 # Bowel Movements 0 Result Diagram: 07/02/16 1104 07/02/16 1104 Objective Remarks GENERAL: This is a well-nourished, well-developed patient, in no apparent distress. SKIN: No rashes, warm and dry HEAD: Atraumatic. Normocephalic. EYES: Pupils equal round and reactive. Extraocular motions intact. No scleral icterus. ENT: Nose without bleeding, or drainage, Airway patent. NECK: Trachea midline. Supple CARDIOVASCULAR: Regular rate and rhythm without murmurs, gallops, or rubs. RESPIRATORY: Fair air entry bilaterally. No wheezes, rales, or rhonchi. GASTROINTESTINAL: Abdomen and surgical binder, positive bowel sounds MUSCULOSKELETAL: Extremities without clubbing, cyanosis, or edema. Pedal pulses appreciated NEUROLOGICAL: Awake and alert. Moves all extremity. Normal speech.no focal neurological deficit Procedures Status post dx lap, lap ninfa, repair of enterotomy 06/17/16 06/27/16 exploratory laparotomy, extensive NINFA, small bowel resection with primary anastomosis, placement of anti-adhesion barrier A/P Problem List: (1) Small bowel obstruction ICD Code: K56.69 Status: Resolved (2) Hyperlipidemia ICD Code: E78.5 Status: Chronic (3) Tobacco abuse ICD Code: Z72.0 Status: Chronic (4) COPD (chronic obstructive pulmonary disease) ICD Code: J44.9 Status: Chronic (5) Nicotine dependence ICD Code: F17.200 Status: Chronic (6) Hypertension ICD Code: I10 Status: Chronic Assessment and Plan 07/03/16: Still no bowel movement or flatus, continue following with surgery, change dressing today, continue antibiotic 61 year-old female with Distal small bowel obstruction/ileus: . Status post dx lap, lap ninfa, repair of enterotomy 06/17/16. Repeat CT abdomen/pelvis 06/25/16 with worsening dilated loops of bowel. Postop ileus - Gen Surgery following, 06/27/16 exploratory laparotomy, extensive NINFA, small bowel resection with primary anastomosis, placement of anti-adhesion barrier - Continue analgesic/antiemetic. S/P Cipro and Flagyl - Pain control. Diet per general surgery. - Encourage ambulation out of bed. She refused heparin for DVT prophylaxis and she tends to just stay in bed. -Abdominal Wound packing change 07/02/16 by surgery Hypertension: Much better controlled after adding amlodipine on 06/23/16. Continue Lopressor, pain control, Vasotec when necessary. History of COPD: Not in exacerbation. Continue Symbicort, DuoNeb when necessary. Patient previously counseled on tobacco cessation. GERD: Continue PPI. Pepcid Nicotine dependence: nicotine patch DVT prophylaxis: bilateral SCDs. Patient refused heparin. She was made aware of the possible complications. Discharge Planning When cleared by surgery Jose Arboleda MD Jul 03, 2016 15:09
[2016-07-03] MEDS ORDERED: ACETAMINOPHEN/HYDROcodone 325 MG/5 MG TAB PO PRN (15:30)
[2016-07-03] MEDS ORDERED: HYDROmorphone HCL PF 2 MG/ML VIAL IV PRN (18:30)
--- NOTE | 2016-07-03 19:42 | HHI.PR ---
Subjective Subjective Notes pt feeling a bit better, no fevers, no bm Objective Vitals/I&O Vital Signs Date Time Temp Pulse Resp B/P Pulse Ox O2 Delivery O2 Flow Rate FiO2 07/03/16 16:00 97.8 71 20 130/63 94 07/03/16 08:00 Room Air 07/02/16 21:01 21 07/01/16 20:01 3.00 Radiology Last Impressions Small Bowel X-Ray 06/21/16 0700 Signed Impressions: Service Date/Time: Tuesday, June 21, 2016 08:54 - CONCLUSION: Unremarkable small bowel examination. No evidence of obstruction and no evidence of extravasation. Paramjit Lerner MD Abdomen/Pelvis CT 06/20/16 0000 Signed Impressions: Service Date/Time: Monday, June 20, 2016 18:42 - CONCLUSION: 1. Small bowel loops remain dilated to 3.4 cm most characteristic of an early or partial small bowel obstruction. Angulated small bowel loops in the lower pelvis suggest adhesions. 2. Loculated 5.2 cm fluid collection in the cul-de-sac without loculated air. 3. Dependent atelectasis or consolidation at both lung bases. Trace left pleural fluid. 4. No free air. Glenn Dougherty MD Abdomen X-Ray 06/17/16 0600 Signed Impressions: Service Date/Time: Friday, June 17, 2016 08:28 - CONCLUSION: 1. Continued findings of small bowel ileus. There has been no significant change when compared to the prior exam. Mitchell Sorenson MD Cardiovascular: Regular Lungs: Clear Abdomen: Other (incision with packing, intact, less erythema) A/P Problem List: (1) Small bowel obstruction (2) GERD (gastroesophageal reflux disease) (3) Abdominal pain Assessment and Plan SBO PLAN s/p dx lap/OR exploratory laparotomy HALEY, bowel resection POD 10/4- Doing better reg diet pack wound oob dvt ppx dvt ppx d/c planning Problem Qualifiers (1) Abdominal pain: Qualified Code: R10.84 - Generalized abdominal pain Luis Medrano MD Jul 03, 2016 19:42
[2016-07-03] MEDS: HYDROmorphone HCL PF 1 MG/ML VIAL IV PRN (20:11)
[2016-07-04] VITALS (9 sets, daily range): BP systolic 109–146; BP diastolic 55–75; PULSE 64–76; RESP 12–20; TEMP 96.2–98; O2SAT 93–97
[2016-07-04] MEDS: HYDROmorphone HCL PF 1 MG/ML VIAL IV PRN ×6 (00:34→23:47)
[2016-07-04] MEDS: SODIUM CHLORIDE 0.9% FLUSH 5 ML FLUSH IVF PRN ×3 (00:34→23:47)
[2016-07-04] MEDS: ONDANSETRON HCL 4 MG/2 ML VIAL IVP PRN (00:39)
[2016-07-04] MEDS: ACETAMINOPHEN/HYDROcodone 325 MG/10 MG TAB PO PRN ×3 (02:46→20:17)
[2016-07-04] MEDS: CEPHALEXIN MONOHYDRATE 500 MG CAP PO SCH ×3 (06:04→20:17)
[2016-07-04] MEDS: HEPARIN SODIUM - SQ 10,000 UNITS/ML VIAL SQ SCH ×3 (06:04→20:17)
[2016-07-04 07:05] LABS: HEMATOCRIT 37.3 % (35.0-46.0); MEAN CELL VOLUME 85.5 FL (80.0-100.0); MEAN CORPUSCULAR HEMOGLOBIN 29.6 PG (27.0-34.0); MEAN CORPUSCULAR HGB CONC 34.6 % (32.0-36.0); PLATELET COUNT 380 TH/MM3 (150-450); RED BLOOD COUNT 4.36 MIL/MM3 (4.00-5.30); RED CELL DISTRIBUTION WIDTH 13.1 % (11.6-17.2); REVIEW FLAG FINAL; WHITE BLOOD COUNT 9.8 TH/MM3 (4.0-11.0)
[2016-07-04 07:25] LABS: BICARBONATE 27.7 MEQ/L (21.0-32.0); POTASSIUM 3.7 MEQ/L (3.5-5.1)
[2016-07-04] MEDS: LACTATED RINGER'S 1000 ML IV SCH (07:32)
[2016-07-04] MEDS: amLODIPine BESYLATE 5 MG TAB PO SCH (08:46)
[2016-07-04] MEDS: FAMOTIDINE 20 MG TAB PO SCH ×2 (08:46→20:17)
[2016-07-04] MEDS: DOCUSATE SODIUM 50 MG/SENNA 8.6 MG TAB PO SCH ×2 (08:46→20:17)
[2016-07-04] MEDS: METOPROLOL SUCCINATE 50 MG EXTENDED RELEASE TAB PO SCH (08:46)
[2016-07-04] MEDS: PANTOPRAZOLE SODIUM 40 MG VIAL IV PUSH SCH (08:47)
[2016-07-04] MEDS: REMOVE OLD NICOTINE PATCH TD SCH (08:47)
[2016-07-04] MEDS: NICOTINE 21 MG/24 HR PATCH TD SCH (08:47)
[2016-07-04] MEDS: SODIUM CHLORIDE 0.9% FLUSH 5 ML FLUSH IVF SCH ×2 (08:47→20:18)
--- NOTE | 2016-07-04 13:34 | HHI.PR ---
Subjective Subjective Notes several large bms yesterday, no nausea, oob, still with mild pain Objective Vitals/I&O Vital Signs Date Time Temp Pulse Resp B/P Pulse Ox O2 Delivery O2 Flow Rate FiO2 07/04/16 12:59 97 21 07/04/16 12:00 98.0 71 16 146/63 07/04/16 08:45 Room Air 07/01/16 20:01 3.00 Labs Laboratory Tests Test 07/04/16 06:18 White Blood Count 9.8 Red Blood Count 4.36 Hemoglobin 12.9 Hematocrit 37.3 Mean Corpuscular Volume 85.5 Mean Corpuscular Hemoglobin 29.6 Mean Corpuscular Hemoglobin 34.6 Concent Red Cell Distribution Width 13.1 Platelet Count 380 Mean Platelet Volume 9.0 Sodium Level 135 Potassium Level 3.7 Chloride Level 98 Carbon Dioxide Level 27.7 Anion Gap 9 Blood Urea Nitrogen 9 Creatinine 0.47 Estimat Glomerular Filtration 135 Rate Random Glucose 94 Calcium Level 8.3 Radiology Last Impressions Small Bowel X-Ray 06/21/16 0700 Signed Impressions: Service Date/Time: Tuesday, June 21, 2016 08:54 - CONCLUSION: Unremarkable small bowel examination. No evidence of obstruction and no evidence of extravasation. Paramjit Lerner MD Abdomen/Pelvis CT 06/20/16 0000 Signed Impressions: Service Date/Time: Monday, June 20, 2016 18:42 - CONCLUSION: 1. Small bowel loops remain dilated to 3.4 cm most characteristic of an early or partial small bowel obstruction. Angulated small bowel loops in the lower pelvis suggest adhesions. 2. Loculated 5.2 cm fluid collection in the cul-de-sac without loculated air. 3. Dependent atelectasis or consolidation at both lung bases. Trace left pleural fluid. 4. No free air. Glenn Dougherty MD Abdomen X-Ray 06/17/16 0600 Signed Impressions: Service Date/Time: Friday, June 17, 2016 08:28 - CONCLUSION: 1. Continued findings of small bowel ileus. There has been no significant change when compared to the prior exam. Mitchell Sorenson MD Cardiovascular: Regular Lungs: Clear Abdomen: Other (incision with packing, scant drainage) A/P Problem List: (1) Small bowel obstruction (2) GERD (gastroesophageal reflux disease) (3) Abdominal pain Assessment and Plan SBO PLAN s/p dx lap/OR exploratory laparotomy HALEY, bowel resection POD 11/5- Doing better , bowels moving reg diet pack wound oob dvt ppx d/c planning Problem Qualifiers (1) Abdominal pain: Qualified Code: R10.84 - Generalized abdominal pain Luis Medrano MD Jul 04, 2016 13:34
--- NOTE | 2016-07-04 15:57 | HHI.PR ---
Subjective Remarks Patient had a bowel movement, still having abdominal tenderness, afebrile, surgery following Objective Vitals Vital Signs Date Time Temp Pulse Resp B/P Pulse Ox O2 Delivery O2 Flow Rate FiO2 07/04/16 13:53 16 07/04/16 12:59 97 21 07/04/16 12:00 98.0 71 16 146/63 93 07/04/16 08:45 70 07/04/16 08:45 Room Air 07/04/16 08:00 97.5 64 12 116/59 94 07/04/16 06:15 95 07/04/16 04:00 96.4 71 20 125/59 95 07/04/16 00:00 96.2 76 20 140/75 94 07/03/16 20:23 79 07/03/16 20:00 97.7 69 20 122/58 93 07/03/16 20:00 Room Air 07/03/16 16:00 97.8 71 20 130/63 94 I/O 07/03/16 07/03/16 07/03/16 07/04/16 07/04/16 07/04/16 07:00 15:00 23:00 07:00 15:00 23:00 Intake Total 240 ml 360 ml 480 ml 240 ml 300 ml Output Total 700 ml 425 ml 300 ml Balance -460 ml -65 ml 180 ml 240 ml 300 ml Intake Oral 240 ml 360 ml 480 ml 240 ml 300 ml Output Urine Total 700 ml 425 ml 300 ml # Voids 1 4 # Bowel Movements 0 1 0 Result Diagram: 07/04/1618 07/04/1618 Objective Remarks GENERAL: This is a well-nourished, well-developed patient, in no apparent distress. SKIN: No rashes, warm and dry HEAD: Atraumatic. Normocephalic. EYES: Pupils equal round and reactive. Extraocular motions intact. No scleral icterus. ENT: Nose without bleeding, or drainage, Airway patent. NECK: Trachea midline. Supple CARDIOVASCULAR: Regular rate and rhythm without murmurs, gallops, or rubs. RESPIRATORY: Fair air entry bilaterally. No wheezes, rales, or rhonchi. GASTROINTESTINAL: Abdomen and surgical binder, positive bowel sounds MUSCULOSKELETAL: Extremities without clubbing, cyanosis, or edema. Pedal pulses appreciated NEUROLOGICAL: Awake and alert. Moves all extremity. Normal speech.no focal neurological deficit Procedures Status post dx lap, lap ninfa, repair of enterotomy 06/17/16 06/27/16 exploratory laparotomy, extensive NINFA, small bowel resection with primary anastomosis, placement of anti-adhesion barrier A/P Problem List: (1) Small bowel obstruction ICD Code: K56.69 Status: Resolved (2) Hyperlipidemia ICD Code: E78.5 Status: Chronic (3) Tobacco abuse ICD Code: Z72.0 Status: Chronic (4) COPD (chronic obstructive pulmonary disease) ICD Code: J44.9 Status: Chronic (5) Nicotine dependence ICD Code: F17.200 Status: Chronic (6) Hypertension ICD Code: I10 Status: Chronic Assessment and Plan 07/03/16: Still no bowel movement or flatus, continue following with surgery, change dressing today, continue antibiotic 07/04: Positive bowel movement, continue following with surgery, advancing diet, change dressing, will get case checker for home health care 61 year-old female with Distal small bowel obstruction/ileus: . Status post dx lap, lap ninfa, repair of enterotomy 06/17/16. Repeat CT abdomen/pelvis 06/25/16 with worsening dilated loops of bowel. Postop ileus - Gen Surgery following, 06/27/16 exploratory laparotomy, extensive NINFA, small bowel resection with primary anastomosis, placement of anti-adhesion barrier - Continue analgesic/antiemetic. S/P Cipro and Flagyl - Pain control. Diet per general surgery. - Encourage ambulation out of bed. She refused heparin for DVT prophylaxis and she tends to just stay in bed. -Abdominal Wound packing change 07/02/16 by surgery Hypertension: Much better controlled after adding amlodipine on 06/23/16. Continue Lopressor, pain control, Vasotec when necessary. History of COPD: Not in exacerbation. Continue Symbicort, DuoNeb when necessary. Patient previously counseled on tobacco cessation. GERD: Continue PPI. Pepcid Nicotine dependence: nicotine patch DVT prophylaxis: bilateral SCDs. Patient refused heparin. She was made aware of the possible complications. Discharge Planning When cleared by surgery Jose Arboleda MD Jul 04, 2016 15:57
[2016-07-05] VITALS (9 sets, daily range): BP systolic 110–140; BP diastolic 60–76; PULSE 62–80; RESP 16–20; TEMP 97.2–98.1; O2SAT 92–98
[2016-07-05] MEDS: HYDROmorphone HCL PF 1 MG/ML VIAL IV PRN ×5 (03:04→19:52)
[2016-07-05] MEDS: HEPARIN SODIUM - SQ 10,000 UNITS/ML VIAL SQ SCH ×3 (05:57→19:52)
[2016-07-05] MEDS: ACETAMINOPHEN/HYDROcodone 325 MG/10 MG TAB PO PRN ×4 (05:58→18:24)
[2016-07-05] MEDS: CEPHALEXIN MONOHYDRATE 500 MG CAP PO SCH ×3 (05:59→21:49)
[2016-07-05] MEDS: SODIUM CHLORIDE 0.9% FLUSH 5 ML FLUSH IVF PRN (07:16)
[2016-07-05] MEDS: LACTATED RINGER'S 1000 ML IV SCH (08:22)
[2016-07-05] MEDS: METOPROLOL SUCCINATE 50 MG EXTENDED RELEASE TAB PO SCH (08:25)
[2016-07-05] MEDS: FAMOTIDINE 20 MG TAB PO SCH ×2 (08:25→19:52)
[2016-07-05] MEDS: DOCUSATE SODIUM 50 MG/SENNA 8.6 MG TAB PO SCH ×2 (08:25→19:52)
[2016-07-05] MEDS: amLODIPine BESYLATE 5 MG TAB PO SCH (08:25)
[2016-07-05] MEDS: PANTOPRAZOLE SODIUM 40 MG VIAL IV PUSH SCH (08:26)
[2016-07-05] MEDS: SODIUM CHLORIDE 0.9% FLUSH 5 ML FLUSH IVF SCH ×2 (08:26→19:52)
[2016-07-05] MEDS: REMOVE OLD NICOTINE PATCH TD SCH (08:27)
[2016-07-05] MEDS: NICOTINE 21 MG/24 HR PATCH TD SCH (08:28)
--- NOTE | 2016-07-05 11:12 | HHI.PR ---
Subjective Subjective Notes pt continues to c/o pain, no fevers, multiple bms Objective Vitals/I&O Vital Signs Date Time Temp Pulse Resp B/P Pulse Ox O2 Delivery O2 Flow Rate FiO2 07/05/16 08:20 Room Air 07/05/16 08:00 97.2 72 20 119/66 94 07/04/16 12:59 21 07/01/16 20:01 3.00 Radiology Last Impressions Small Bowel X-Ray 06/21/16 0700 Signed Impressions: Service Date/Time: Tuesday, June 21, 2016 08:54 - CONCLUSION: Unremarkable small bowel examination. No evidence of obstruction and no evidence of extravasation. Paramjit Lerner MD Abdomen/Pelvis CT 06/20/16 0000 Signed Impressions: Service Date/Time: Monday, June 20, 2016 18:42 - CONCLUSION: 1. Small bowel loops remain dilated to 3.4 cm most characteristic of an early or partial small bowel obstruction. Angulated small bowel loops in the lower pelvis suggest adhesions. 2. Loculated 5.2 cm fluid collection in the cul-de-sac without loculated air. 3. Dependent atelectasis or consolidation at both lung bases. Trace left pleural fluid. 4. No free air. Glenn Dougherty MD Abdomen X-Ray 06/17/16 0600 Signed Impressions: Service Date/Time: Friday, June 17, 2016 08:28 - CONCLUSION: 1. Continued findings of small bowel ileus. There has been no significant change when compared to the prior exam. Mitchell Sorenson MD Cardiovascular: Regular Lungs: Clear Abdomen: Other (+ttp, no rebound, incision with drainage on dressing) A/P Problem List: (1) Small bowel obstruction (2) GERD (gastroesophageal reflux disease) (3) Abdominal pain Assessment and Plan SBO PLAN s/p dx lap/OR exploratory laparotomy HALEY, bowel resection POD 12/6- Doing better , bowels moving reg diet pack wound- increase to TID oob dvt ppx d/c planning [facility] For dressing changes wean IV pain meds Problem Qualifiers (1) Abdominal pain: Qualified Code: R10.84 - Generalized abdominal pain Luis Medrano MD Jul 05, 2016 11:11
--- NOTE | 2016-07-05 17:59 | HHI.PR ---
Subjective Remarks Clinically doing well, still positive bowel movement, she had 2 otis removed eye surgeon, and another 2 to be removed tonight, she was told she still have infection and the plan to be discharged on the She is afebrile, no chest pain Objective Vitals Vital Signs Date Time Temp Pulse Resp B/P Pulse Ox O2 Delivery O2 Flow Rate FiO2 07/05/16 16:00 97.9 66 20 135/60 95 07/05/16 16:00 97.9 66 20 135/60 95 07/05/16 14:06 98 21 07/05/16 12:00 97.7 71 20 131/62 92 07/05/16 08:20 Room Air 07/05/16 08:04 76 07/05/16 08:00 97.2 72 20 119/66 94 07/05/16 04:00 97.4 62 20 110/60 93 07/05/16 00:00 97.8 80 20 126/70 95 07/04/16 20:00 Room Air 07/04/16 20:00 97.6 75 18 138/62 94 07/04/16 19:07 16 I/O 07/04/16 07/04/16 07/04/16 07/05/16 07/05/16 07/05/16 07:00 15:00 23:00 07:00 15:00 23:00 Intake Total 240 ml 300 ml 360 ml 240 ml 972 ml Balance 240 ml 300 ml 360 ml 240 ml 972 ml Intake Oral 240 ml 300 ml 360 ml 240 ml 960 ml IV Total 12 ml # Voids 1 4 2 2 4 # Bowel Movements 0 0 Result Diagram: 07/04/1661707/04/1618 Objective Remarks GENERAL: This is a well-nourished, well-developed patient, in no apparent distress. SKIN: No rashes, warm and dry HEAD: Atraumatic. Normocephalic. EYES: Pupils equal round and reactive. Extraocular motions intact. No scleral icterus. ENT: Nose without bleeding, or drainage, Airway patent. NECK: Trachea midline. Supple CARDIOVASCULAR: Regular rate and rhythm without murmurs, gallops, or rubs. RESPIRATORY: Fair air entry bilaterally. No wheezes, rales, or rhonchi. GASTROINTESTINAL: Abdomen and surgical binder, positive bowel sounds MUSCULOSKELETAL: Extremities without clubbing, cyanosis, or edema. Pedal pulses appreciated NEUROLOGICAL: Awake and alert. Moves all extremity. Normal speech.no focal neurological deficit Procedures Status post dx lap, lap haley, repair of enterotomy 06/17/16 06/27/16 exploratory laparotomy, extensive HALEY, small bowel resection with primary anastomosis, placement of anti-adhesion barrier A/P Problem List: (1) Small bowel obstruction ICD Code: K56.69 Status: Resolved (2) Hyperlipidemia ICD Code: E78.5 Status: Chronic (3) Tobacco abuse ICD Code: Z72.0 Status: Chronic (4) COPD (chronic obstructive pulmonary disease) ICD Code: J44.9 Status: Chronic (5) Nicotine dependence ICD Code: F17.200 Status: Chronic (6) Hypertension ICD Code: I10 Status: Chronic Assessment and Plan 07/03/16: Still no bowel movement or flatus, continue following with surgery, change dressing today, continue antibiotic 07/04: Positive bowel movement, continue following with surgery, advancing diet, change dressing, will get case packer and sealer for home health care 07/05: Still able to move bowel, afebrile, few otis removed by surgery, be planning on discharge on Monday the 10th 61 year-old female with Distal small bowel obstruction/ileus: . Status post dx lap, lap haley, repair of enterotomy 06/17/16. Repeat CT abdomen/pelvis 06/25/16 with worsening dilated loops of bowel. Postop ileus - Gen Surgery following, 06/27/16 exploratory laparotomy, extensive HALEY, small bowel resection with primary anastomosis, placement of anti-adhesion barrier - Continue analgesic/antiemetic. S/P Cipro and Flagyl - Pain control. Diet per general surgery. - Encourage ambulation out of bed. She refused heparin for DVT prophylaxis and she tends to just stay in bed. -Abdominal Wound packing change 07/02/16 by surgery Hypertension: Much better controlled after adding amlodipine on 06/23/16. Continue Lopressor, pain control, Vasotec when necessary. History of COPD: Not in exacerbation. Continue Symbicort, DuoNeb when necessary. Patient previously counseled on tobacco cessation. GERD: Continue PPI. Pepcid Nicotine dependence: nicotine patch DVT prophylaxis: bilateral SCDs. Patient refused heparin. She was made aware of the possible complications. Discharge Planning When cleared by surgery Jose Arboleda MD Jul 05, 2016 17:59
[2016-07-06] VITALS (9 sets, daily range): BP systolic 112–128; BP diastolic 54–75; PULSE 65–77; RESP 18–22; TEMP 97.4–98; O2SAT 93–100
[2016-07-06] MEDS: ACETAMINOPHEN/HYDROcodone 325 MG/10 MG TAB PO PRN ×5 (00:17→22:07)
[2016-07-06] MEDS: CEPHALEXIN MONOHYDRATE 500 MG CAP PO SCH (05:14)
[2016-07-06] MEDS: HEPARIN SODIUM - SQ 10,000 UNITS/ML VIAL SQ SCH ×3 (05:14→21:31)
[2016-07-06] MEDS: HYDROmorphone HCL PF 1 MG/ML VIAL IV PRN ×4 (06:50→23:59)
[2016-07-06] MEDS: SODIUM CHLORIDE 0.9% FLUSH 5 ML FLUSH IVF PRN (06:51)
[2016-07-06] MEDS: LACTATED RINGER'S 1000 ML IV SCH (08:30)
[2016-07-06] MEDS: METOPROLOL SUCCINATE 50 MG EXTENDED RELEASE TAB PO SCH (09:38)
[2016-07-06] MEDS: PANTOPRAZOLE SODIUM 40 MG VIAL IV PUSH SCH (09:38)
[2016-07-06] MEDS: DOCUSATE SODIUM 50 MG/SENNA 8.6 MG TAB PO SCH ×2 (09:38→21:32)
[2016-07-06] MEDS: FAMOTIDINE 20 MG TAB PO SCH ×2 (09:38→21:31)
[2016-07-06] MEDS: amLODIPine BESYLATE 5 MG TAB PO SCH (09:38)
[2016-07-06] MEDS: SODIUM CHLORIDE 0.9% FLUSH 5 ML FLUSH IVF SCH ×2 (09:39→21:32)
[2016-07-06] MEDS: REMOVE OLD NICOTINE PATCH TD SCH (09:51)
[2016-07-06] MEDS: NICOTINE 21 MG/24 HR PATCH TD SCH (09:54)
--- NOTE | 2016-07-06 10:29 | HHI.PR ---
Subjective Subjective Notes persistent left lower abd pain, no nausea, +flatus, having bms Objective Vitals/I&O Vital Signs Date Time Temp Pulse Resp B/P Pulse Ox O2 Delivery O2 Flow Rate FiO2 07/06/16 09:20 Room Air 07/06/16 08:00 98.0 68 20 127/66 95 07/05/16 14:06 21 Radiology Last Impressions Small Bowel X-Ray 06/21/16 0700 Signed Impressions: Service Date/Time: Tuesday, June 21, 2016 08:54 - CONCLUSION: Unremarkable small bowel examination. No evidence of obstruction and no evidence of extravasation. Paramjit Lerner MD Abdomen/Pelvis CT 06/20/16 0000 Signed Impressions: Service Date/Time: Monday, June 20, 2016 18:42 - CONCLUSION: 1. Small bowel loops remain dilated to 3.4 cm most characteristic of an early or partial small bowel obstruction. Angulated small bowel loops in the lower pelvis suggest adhesions. 2. Loculated 5.2 cm fluid collection in the cul-de-sac without loculated air. 3. Dependent atelectasis or consolidation at both lung bases. Trace left pleural fluid. 4. No free air. Glenn Dougherty MD Abdomen X-Ray 06/17/16 0600 Signed Impressions: Service Date/Time: Friday, June 17, 2016 08:28 - CONCLUSION: 1. Continued findings of small bowel ileus. There has been no significant change when compared to the prior exam. Mitchell Sorenson MD Cardiovascular: Regular Lungs: Clear Abdomen: Other (+ttp LLQ, no rebound. incision with packing) A/P Problem List: (1) Small bowel obstruction (2) GERD (gastroesophageal reflux disease) (3) Abdominal pain Assessment and Plan SBO PLAN s/p dx lap/OR exploratory laparotomy HALEY, bowel resection POD 13/7- Doing better , bowels moving reg diet pack wound- increase to TID oob dvt ppx obtain CTscan r/o abscess d/c planning [facility] For dressing changes wean IV pain meds Problem Qualifiers (1) Abdominal pain: Qualified Code: R10.84 - Generalized abdominal pain Luis Medrano MD Jul 06, 2016 10:29
--- NOTE | 2016-07-06 10:53 | HHI.DS ---
Discharge Summary Admission Date Jun 14, 2016 at 07:02 Discharge Date: Jul 07, 2016 Admitting Diagnosis Small bowel obstruction (1) Small bowel obstruction ICD Code: K56.69 (2) Hyperlipidemia ICD Code: E78.5 (3) Tobacco abuse ICD Code: Z72.0 (4) COPD (chronic obstructive pulmonary disease) ICD Code: J44.9 (5) Nicotine dependence ICD Code: F17.200 (6) Hypertension ICD Code: I10 Procedures Status post dx lap, lap ninfa, repair of enterotomy 06/17/16 06/27/16 exploratory laparotomy, extensive NINFA, small bowel resection with primary anastomosis, placement of anti-adhesion barrier Brief History - From Admission 61-year-old female with a history of COPD, prior surgical history of lap cholecystectomy, appendectomy, VILMA presented to the ED for evaluation of an acute onset of worsening abdominal pain x greater than 24hours duration and described as stabbing and constant rated 10/10 in intensity associated with intractable nausea and vomiting. She reported multiple episodes of emesis nonbilious without any evidence of gross bleed. Patient reports her last BM few hours prior to the onset of abdominal pain and only had one flatus at 2 AM this morning. She denies any relief. During my exam she was constantly moaning. She feels short of breath secondary to emesis and abdominal pain otherwise denies any chest pain. There is no bladder dysfunction. CBC/BMP: 07/04/16 0618 07/04/16 0618 Significant Findings Laboratory Tests Test 07/04/16 06:18 Sodium Level 135 MEQ/L (136-145) Creatinine 0.47 MG/DL (0.50-1.00) Calcium Level 8.3 MG/DL (8.5-10.1) PE at Discharge GENERAL: This is a well-nourished, well-developed patient, in no apparent distress. SKIN: No rashes, warm and dry HEAD: Atraumatic. Normocephalic. EYES: Pupils equal round and reactive. Extraocular motions intact. No scleral icterus. ENT: Nose without bleeding, or drainage, Airway patent. NECK: Trachea midline. Supple CARDIOVASCULAR: Regular rate and rhythm without murmurs, gallops, or rubs. RESPIRATORY: Fair air entry bilaterally. No wheezes, rales, or rhonchi. GASTROINTESTINAL: Abdomen and surgical binder, positive bowel sounds MUSCULOSKELETAL: Extremities without clubbing, cyanosis, or edema. Pedal pulses appreciated NEUROLOGICAL: Awake and alert. Moves all extremity. Normal speech.no focal neurological deficit Hospital Course 61 year-old female with Distal small bowel obstruction/ileus: . Status post dx lap, lap ninfa, repair of enterotomy 06/17/16. Repeat CT abdomen/pelvis 06/25/16 with worsening dilated loops of bowel. Followed by Postop ileus - Gen Surgery following, 06/27/16 exploratory laparotomy, extensive NINFA, small bowel resection with primary anastomosis, placement of anti-adhesion barrier - Continue analgesic/antiemetic. S/P Cipro and Flagyl - Pain control. Diet per general surgery. - Encourage ambulation out of bed. She refused heparin for DVT prophylaxis and she tends to just stay in bed. -Abdominal Wound packing change per surgery who recommended home health care for dressing changes at discharge -Postop ileus improved gradually patient started moving bowel, advance diet per surgery Hypertension: Much better controlled after adding amlodipine on 06/23/16. Continue Lopressor, pain control, Vasotec when necessary. History of COPD: Not in exacerbation. Continue Symbicort, DuoNeb when necessary. Patient previously counseled on tobacco cessation. GERD: Continue PPI. Pepcid Nicotine dependence: nicotine patch DVT prophylaxis: bilateral SCDs. Patient refused heparin. She was made aware of the possible complications. Arcp-ko-dwoj encounter performed with the patient on the day of preparing discharge, as well as physical exam, summary of hospitalization course and postdischarge plan has been D/W the patient. D/W nurse D/W test case developer. Discharge medications reviewed and printed and signed, post discharge follow up visit with PCP and other specialist as well as Brief hospital course and discharge summary has been placed. Pt Condition on Discharge: Fair Discharge Disposition: Disch w/ Home Health Serv Discharge Time: > 30 minutes Discharge Instructions DIET: Follow Instructions for: Heart Healthy Diet, Diabetic Diet Activities you can perform: Weight Bearing as Randy Follow up Referrals: Colorectal Surgery - 10 Days with Luis Medrano MD New Medications: Amlodipine (Norvasc) 5 Mg Tab 5 MG PO DAILY htn #30 TAB Cephalexin (Cephalexin) 500 Mg Cap 500 MG PO Q8HR abd wall infx #21 CAP Famotidine (Famotidine) 20 Mg Tab 20 MG PO BID gi #30 TAB Hydrocodone-Acetaminophen (Hydrocodone-Acetaminophen) 10-325 mg Tab 1 TAB PO Q4H PRN pain scale 1-5 #20 TAB Pantoprazole Inj (Protonix Inj) 40 Mg Inj 40 MG IV PUSH Q24H gi #30 INJECTION Continued Medications: Albuterol 8.5 GM Inh (Proair Hfa 8.5 GM Inh) 90 Mcg/Act Aer 2 PUFF INH Q4HR 108 mcg/actuation SHORTNESS OF BREATH #1 Ref 0 INHALER Metoprolol Succinate ER 24 HR (Metoprolol Succinate ER 24 HR) 50 Mg Tab 50 MG PO DAILY #30 Ref 0 TAB Omeprazole (Omeprazole) 40 Mg Cap 40 MG PO DAILY #30 Ref 0 CAP Jose Arboleda MD Jul 06, 2016 10:53
[2016-07-06] MEDS ORDERED: DIATRIZOATE MEGLUM/DIATRIZOATE SOD 9 ML CUP PO ONE (11:00)
[2016-07-06] MEDS: CLINDAMYCIN INJ 600 MG in SODIUM CHLORIDE 0.9% INJ 100 ML IV SCH ×2 (11:58→21:31)
[2016-07-06] MEDS ORDERED: HYDROmorphone HCL PF 1 MG/ML VIAL IV PUSH ONE (13:15)
--- NOTE | 2016-07-06 13:17 | HHI.PR ---
Subjective Remarks Follow up on postop abdominal surgery I went into the room patient was in severe pain, "please talk give me something for that pain "she is in significant distress due to this pain She told me surgery to cough to of her otis, surgery also added clindamycin to her medical regimen The plan was for her to be discharged on Monday, I ordered a placed discharge order and then I will hold on it so patient can be reassessed on a daily basis until Monday She is still afebrile, will order CBC to check WBC today Objective Vitals Vital Signs Date Time Temp Pulse Resp B/P Pulse Ox O2 Delivery O2 Flow Rate FiO2 07/06/16 12:00 98.0 72 22 126/75 95 07/06/16 10:19 77 07/06/16 09:20 Room Air 07/06/16 08:00 98.0 68 20 127/66 95 07/06/16 04:00 97.5 65 18 112/55 98 07/06/16 00:00 97.4 76 18 117/54 100 07/05/16 20:05 98.1 69 16 140/74 95 07/05/16 20:00 76 07/05/16 20:00 97.9 65 18 118/76 94 07/05/16 20:00 Room Air 07/05/16 16:00 97.9 66 20 135/60 95 07/05/16 16:00 97.9 66 20 135/60 95 07/05/16 14:06 98 21 I/O 07/05/16 07/05/16 07/05/16 07/06/16 07/06/16 07/06/16 07:00 15:00 23:00 07:00 15:00 23:00 Intake Total 240 ml 972 ml 600 ml 240 ml Output Total 100 ml 1 ml Balance 240 ml 972 ml 500 ml 239 ml Intake Oral 240 ml 960 ml 600 ml 240 ml IV Total 12 ml Output Urine Total 100 ml 1 ml # Voids 2 4 2 # Bowel Movements 0 Result Diagram: 07/04/1661707/04/16617 Objective Remarks GENERAL: This is a well-nourished, well-developed patient, in other distress due to abdominal pain SKIN: No rashes, warm and dry HEAD: Atraumatic. Normocephalic. EYES: Pupils equal round and reactive. Extraocular motions intact. No scleral icterus. ENT: Nose without bleeding, or drainage, Airway patent. NECK: Trachea midline. Supple CARDIOVASCULAR: Regular rate and rhythm without murmurs, gallops, or rubs. RESPIRATORY: Fair air entry bilaterally. No wheezes, rales, or rhonchi. GASTROINTESTINAL: Abdomen and surgical binder, positive bowel sounds, patient holding her hand on her abdomen she did not let me examine it MUSCULOSKELETAL: Extremities without clubbing, cyanosis, or edema. Pedal pulses appreciated NEUROLOGICAL: Awake and alert. Moves all extremity. Normal speech.no focal neurological deficit Procedures Status post dx lap, lap haley, repair of enterotomy 06/17/16 06/27/16 exploratory laparotomy, extensive HALEY, small bowel resection with primary anastomosis, placement of anti-adhesion barrier A/P Problem List: (1) Small bowel obstruction ICD Code: K56.69 Status: Resolved (2) Hyperlipidemia ICD Code: E78.5 Status: Chronic (3) Tobacco abuse ICD Code: Z72.0 Status: Chronic (4) COPD (chronic obstructive pulmonary disease) ICD Code: J44.9 Status: Chronic (5) Nicotine dependence ICD Code: F17.200 Status: Chronic (6) Hypertension ICD Code: I10 Status: Chronic Assessment and Plan 61 year-old female with Distal small bowel obstruction/ileus: . Status post dx lap, lap haley, repair of enterotomy 06/17/16. Repeat CT abdomen/pelvis 06/25/16 with worsening dilated loops of bowel. Postop ileus - Gen Surgery following, 06/27/16 exploratory laparotomy, extensive HALEY, small bowel resection with primary anastomosis, placement of anti-adhesion barrier - Continue analgesic/antiemetic. S/P Cipro and Flagyl, Keflex now on clindamycin - Pain control. Diet per general surgery. - Encourage ambulation out of bed. She refused heparin for DVT prophylaxis and she tends to just stay in bed. -Abdominal Wound packing change 07/02/16 by surgery now 3 times a day -Change Keflex to clindamycin per surgery, consider ID consultation if needed -I will order CBC to check WBC today -She is in severe pain she was given a dose of Dilaudid 2 hours ago will give her another 1 mg 1 now Hypertension: Much better controlled after adding amlodipine on 06/23/16. Continue Lopressor, pain control, Vasotec when necessary. History of COPD: Not in exacerbation. Continue Symbicort, DuoNeb when necessary. Patient previously counseled on tobacco cessation. GERD: Continue PPI. Pepcid Nicotine dependence: nicotine patch DVT prophylaxis: bilateral SCDs. Patient refused heparin. She was made aware of the possible complications. Discharge Planning When cleared by surgery Jose Arboleda MD Jul 06, 2016 13:17
[2016-07-06 14:46] LABS: AUTOMATED NEUTROPHIL # 6.5 TH/MM3 (1.8-7.7); BASOPHIL % 0.2 % (0.0-2.0); EOSINOPHIL # 0.1 TH/MM3 (0-0.4); EOSINOPHIL % 0.8 % (0.0-4.0); HEMATOCRIT 38.4 % (35.0-46.0); HEMO FLAGS DIFF FINAL; LYMPHOCYTE # 1.4 TH/MM3 (1.0-4.8); MEAN CELL VOLUME 85.7 FL (80.0-100.0); MEAN CORPUSCULAR HGB CONC 33.9 % (32.0-36.0); MONO % 8.6 % (0.0-8.0); NEUT % 74.4 % (16.0-70.0); PLATELET COUNT 301 TH/MM3 (150-450); RED BLOOD COUNT 4.49 MIL/MM3 (4.00-5.30); RED CELL DISTRIBUTION WIDTH 13.2 % (11.6-17.2); WHITE BLOOD COUNT 8.7 TH/MM3 (4.0-11.0)
[2016-07-06] MEDS ORDERED: IOHEXOL 350 MG/ML 10 ML VIAL (for RAD DIAG) IV ONE (15:57)
--- NOTE | 2016-07-06 16:55 | RADRPT ---
EXAM DATE/TIME: 07/06/2016 15:41 [facility] COMPARISON: CT ABDOMEN & PELVIS W CONTRAST, June 25, 2016, 18:53. INDICATIONS : Diffuse abdomen pain. IV CONTRAST: 97 cc Omnipaque 350 (iohexol) IV ORAL CONTRAST: Partial prescribed oral contrast ingested. RADIATION DOSE: 15.91 CTDIvol (mGy) MEDICAL HISTORY : Cardiovascular disease. Hypertension. Diverticulitis. SURGICAL HISTORY : Hysterectomy. Appendectomy. Cholecystectomy. ENCOUNTER: Initial ACUITY: 1 day PAIN SCALE: 8/10 LOCATION: Abdomen TECHNIQUE: Volumetric scanning of the abdomen and pelvis was performed. Using automated exposure control and ad justment of the mA and/or kV according to patient size, radiation dose was kept as low as reasonably achievable to obtain optimal diagnostic quality images. FINDINGS: There are fluid-filled mildly dilated loops of small bowel throughout the abdomen raising the possibi lity of small bowel ileus or partial small bowel obstruction. Suture line is noted within the pelvis and the loop in the region of the suture line is nondistended which may indicate a transition point at this level. Clinical correlation is recommended. The colon is nondilated. Uncomplicated colonic diverticulosis is noted. Posterior bibasilar atelectasis is noted. The liver, spleen, pancreas, adrenal glands and kidneys ar e stable. The abdominal aorta is calcified but is not aneurysmally dilated. The inferior vena cava i s normal. The urinary bladder is unremarkable. Midline incision is noted with some air and a tiny a mount of fluid within the subcutaneous portion of the incision. No definite subcutaneous abscess is noted. Degenerative changes are noted throughout the lumbar and lower thoracic spine. CONCLUSION: 1. Fluid-filled mildly dilated loops of small bowel throughout the abdomen and pelvis raising the pos sibility of partial small bowel obstruction or small bowel ileus. The suture line within the pelvis demonstrates no significant dilatation which would suggest possible transition point. Clinical corre lation is recommended. 2. Uncomplicated colonic diverticulosis. 3. Degenerative changes and scoliosis of the thoracolumbar spine. 4. Posterior bibasilar atelectasis. Nasim Nance MD on July 06, 2016 at 16:39 Board Certified Radiologist. This report was verified electronically.
[2016-07-06] MEDS ORDERED: HYDROmorphone HCL PF 1 MG/ML VIAL IV ONE (17:45)
[2016-07-06] MEDS ORDERED: KETOROLAC TROMETHAMINE 30 MG/ML (IVP) VIAL IV PUSH PRN (18:58)
[2016-07-06] MEDS: METOCLOPRAMIDE HCL 10 MG/2 ML VIAL IV SCH (22:07)
[2016-07-07] VITALS (8 sets, daily range): BP systolic 105–131; BP diastolic 56–62; PULSE 63–72; RESP 16–19; TEMP 97.5–98.8; O2SAT 93–96
[2016-07-07] MEDS: ACETAMINOPHEN/HYDROcodone 325 MG/10 MG TAB PO PRN ×4 (03:34→20:44)
[2016-07-07] MEDS: CLINDAMYCIN INJ 600 MG in SODIUM CHLORIDE 0.9% INJ 100 ML IV SCH ×3 (03:34→20:46)
[2016-07-07] MEDS: HYDROmorphone HCL PF 1 MG/ML VIAL IV PRN ×4 (05:55→18:23)
[2016-07-07] MEDS: METOCLOPRAMIDE HCL 10 MG/2 ML VIAL IV SCH ×3 (05:55→20:45)
[2016-07-07] MEDS: HEPARIN SODIUM - SQ 10,000 UNITS/ML VIAL SQ SCH ×3 (05:56→20:45)
[2016-07-07] MEDS: LACTATED RINGER'S 1000 ML IV SCH (08:30)
[2016-07-07] MEDS: REMOVE OLD NICOTINE PATCH TD SCH (09:00)
[2016-07-07] MEDS: DOCUSATE SODIUM 50 MG/SENNA 8.6 MG TAB PO SCH ×2 (09:01→20:46)
[2016-07-07] MEDS: FAMOTIDINE 20 MG TAB PO SCH ×2 (09:01→20:45)
[2016-07-07] MEDS: amLODIPine BESYLATE 5 MG TAB PO SCH (09:01)
[2016-07-07] MEDS: METOPROLOL SUCCINATE 50 MG EXTENDED RELEASE TAB PO SCH (09:02)
[2016-07-07] MEDS: NICOTINE 21 MG/24 HR PATCH TD SCH (09:03)
[2016-07-07] MEDS: SODIUM CHLORIDE 0.9% FLUSH 5 ML FLUSH IVF SCH ×2 (09:04→20:45)
[2016-07-07] MEDS: PANTOPRAZOLE SODIUM 40 MG VIAL IV PUSH SCH (09:04)
--- NOTE | 2016-07-07 10:21 | HHI.PR ---
Subjective Remarks Follow-up small bowel obstruction 07/07/16-patient seen and examined, continue to complain of abdominal pain. Positive for bowel movement. Currently afebrile. Tolerating by mouth without any complication of nausea and vomiting. Objective Vitals Vital Signs Date Time Temp Pulse Resp B/P Pulse Ox O2 Delivery O2 Flow Rate FiO2 07/07/16 08:00 98.8 72 18 131/59 94 07/07/16 04:39 98.1 72 16 122/62 95 07/07/16 00:37 97.7 63 19 109/57 96 07/06/16 20:55 Room Air 07/06/16 20:00 65 125/68 07/06/16 20:00 77 07/06/16 18:19 93 Nasal Cannula 21 07/06/16 16:00 97.6 66 18 128/68 94 07/06/16 14:10 93 Nasal Cannula 21 07/06/16 12:00 98.0 72 22 126/75 95 07/06/16 10:19 77 I/O 07/06/16 07/06/16 07/06/16 07/07/16 07/07/16 07/07/16 07:00 15:00 23:00 07:00 15:00 23:00 Intake Total 240 ml 596 ml 750 ml 750 ml Output Total 1 ml 300 ml Balance 239 ml 596 ml 750 ml 450 ml Intake Oral 240 ml 480 ml 650 ml 650 ml IV Total 116 ml 100 ml 100 ml Output Urine Total 1 ml 300 ml # Voids 3 # Bowel Movements 0 0 Result Diagram: 07/06/16 1348 07/04/16 0618 Imaging Last Impressions Abdomen/Pelvis CT 07/06/16 0000 Signed Impressions: Service Date/Time: Wednesday, July 06, 2016 15:41 - CONCLUSION: 1. Fluid-filled mildly dilated loops of small bowel throughout the abdomen and pelvis raising the possibility of partial small bowel obstruction or small bowel ileus. The suture line within the pelvis demonstrates no significant dilatation which would suggest possible transition point. Clinical correlation is recommended. 2. Uncomplicated colonic diverticulosis. 3. Degenerative changes and scoliosis of the thoracolumbar spine. 4. Posterior bibasilar atelectasis. Nasim Nance MD Abdomen X-Ray 06/24/16 0000 Signed Impressions: Service Date/Time: Friday, June 24, 2016 10:38 - CONCLUSION: Nonspecific abdomen with persistent air throughout the small bowel not disproportionate relative to colon. Pelvic tubular drain removed. Diverticuli appreciated of the descending and sigmoid colon. Paramjit Lerner MD Small Bowel X-Ray 06/21/16 0700 Signed Impressions: Service Date/Time: Tuesday, June 21, 2016 08:54 - CONCLUSION: Unremarkable small bowel examination. No evidence of obstruction and no evidence of extravasation. Paramjit Lerner MD Objective Remarks GENERAL: NAD SKIN: Warm and dry. HEAD: Normocephalic. EYES: No scleral icterus. No injection or drainage. NECK: Supple, trachea midline. No JVD or lymphadenopathy. CARDIOVASCULAR: Regular rate and rhythm without murmurs, gallops, or rubs. RESPIRATORY: Breath sounds decreased bilaterally. No accessory muscle use. GASTROINTESTINAL: Abdomen soft, mildly tender, nondistended. Abdominal binder in place. MUSCULOSKELETAL: No cyanosis, or edema. BACK: Nontender without obvious deformity. No CVA tenderness. Procedures Status post dx lap, lap ninfa, repair of enterotomy 06/17/16 06/27/16 exploratory laparotomy, extensive NINFA, small bowel resection with primary anastomosis, placement of anti-adhesion barrier A/P Problem List: (1) Small bowel obstruction ICD Code: K56.69 Status: Resolved (2) Hyperlipidemia ICD Code: E78.5 Status: Chronic (3) Tobacco abuse ICD Code: Z72.0 Status: Chronic (4) COPD (chronic obstructive pulmonary disease) ICD Code: J44.9 Status: Chronic (5) Nicotine dependence ICD Code: F17.200 Status: Chronic (6) Hypertension ICD Code: I10 Status: Chronic Assessment and Plan 61 year-old female with Distal small bowel obstruction/ileus: . Status post dx lap, lap ninfa, repair of enterotomy 06/17/16. 06/27/16 exploratory laparotomy, extensive NINFA, small bowel resection with primary anastomosis, placement of anti-adhesion barrier. Appreciate input from general surgery. CT abdomen/pelvis 07/06/16 noted and reviewed with finding of Fluid-filled mildly dilated loops of small bowel throughout the abdomen and pelvis raising the possibility of partial small bowel obstruction or small bowel ileus. Currently on clindamycin and continue with current pain management. Hypertension: Continue Lopressor, pain control, Vasotec when necessary. History of COPD: Continue Symbicort, DuoNeb when necessary. Patient previously counseled on tobacco cessation. GERD: Continue PPI. Pepcid Nicotine dependence: Continue with nicotine patch DVT prophylaxis: bilateral SCDs. Patient refused heparin. She was made aware of the possible complications. Lars Rockwell MD Jul 07, 2016 10:21
[2016-07-07] MEDS: SODIUM CHLORIDE 0.9% FLUSH 5 ML FLUSH IVF PRN ×2 (14:32→18:24)
--- NOTE | 2016-07-07 17:03 | HHI.PR ---
Subjective Subjective Notes pt feels better, +bowel function, tolerated a sandwich Objective Vitals/I&O Vital Signs Date Time Temp Pulse Resp B/P Pulse Ox O2 Delivery O2 Flow Rate FiO2 07/07/16 12:00 97.6 69 18 105/57 95 07/07/16 11:17 21 07/07/16 08:10 Room Air Radiology Last Impressions Small Bowel X-Ray 06/21/16 0700 Signed Impressions: Service Date/Time: Tuesday, June 21, 2016 08:54 - CONCLUSION: Unremarkable small bowel examination. No evidence of obstruction and no evidence of extravasation. Paramjit Lerner MD Abdomen/Pelvis CT 06/20/16 0000 Signed Impressions: Service Date/Time: Monday, June 20, 2016 18:42 - CONCLUSION: 1. Small bowel loops remain dilated to 3.4 cm most characteristic of an early or partial small bowel obstruction. Angulated small bowel loops in the lower pelvis suggest adhesions. 2. Loculated 5.2 cm fluid collection in the cul-de-sac without loculated air. 3. Dependent atelectasis or consolidation at both lung bases. Trace left pleural fluid. 4. No free air. Glenn Dougherty MD Abdomen X-Ray 06/17/16 0600 Signed Impressions: Service Date/Time: Friday, June 17, 2016 08:28 - CONCLUSION: 1. Continued findings of small bowel ileus. There has been no significant change when compared to the prior exam. Mitchell Sorenson MD Cardiovascular: Regular Lungs: Clear Abdomen: Non-distended, Other (incision with packing dry dressing) A/P Problem List: (1) Small bowel obstruction (2) GERD (gastroesophageal reflux disease) (3) Abdominal pain Assessment and Plan SBO PLAN s/p dx lap/OR exploratory laparotomy HALEY, bowel resection POD 14/8- Doing better , bowels moving CT no abscess, mild dilated loops, stool and gas in colon reg diet pack wound- increase to TID oob dvt ppx d/c planning [facility] For dressing changes wean IV pain meds Problem Qualifiers (1) Abdominal pain: Qualified Code: R10.84 - Generalized abdominal pain Luis Medrano MD Jul 07, 2016 17:03
[2016-07-08] VITALS (8 sets, daily range): BP systolic 105–131; BP diastolic 57–72; PULSE 54–78; RESP 18–20; TEMP 97.4–98.2; O2SAT 93–97
[2016-07-08] MEDS: HYDROmorphone HCL PF 1 MG/ML VIAL IV PRN ×4 (00:18→18:54)
[2016-07-08] MEDS: CLINDAMYCIN INJ 600 MG in SODIUM CHLORIDE 0.9% INJ 100 ML IV SCH ×3 (02:49→20:30)
[2016-07-08] MEDS: ACETAMINOPHEN/HYDROcodone 325 MG/10 MG TAB PO PRN ×3 (02:50→20:30)
[2016-07-08] MEDS: SODIUM CHLORIDE 0.9% FLUSH 5 ML FLUSH IVF PRN ×4 (02:50→18:56)
[2016-07-08] MEDS: HEPARIN SODIUM - SQ 10,000 UNITS/ML VIAL SQ SCH ×3 (05:49→20:34)
[2016-07-08] MEDS: METOCLOPRAMIDE HCL 10 MG/2 ML VIAL IV SCH ×3 (05:49→20:30)
[2016-07-08] MEDS: LACTATED RINGER'S 1000 ML IV SCH (08:30)
[2016-07-08] MEDS: METOPROLOL SUCCINATE 50 MG EXTENDED RELEASE TAB PO SCH (08:58)
[2016-07-08] MEDS: FAMOTIDINE 20 MG TAB PO SCH ×2 (08:58→20:30)
[2016-07-08] MEDS: amLODIPine BESYLATE 5 MG TAB PO SCH (08:58)
[2016-07-08] MEDS: DOCUSATE SODIUM 50 MG/SENNA 8.6 MG TAB PO SCH ×2 (08:58→20:30)
[2016-07-08] MEDS: NICOTINE 21 MG/24 HR PATCH TD SCH (08:59)
[2016-07-08] MEDS: PANTOPRAZOLE SODIUM 40 MG VIAL IV PUSH SCH (09:00)
[2016-07-08] MEDS: REMOVE OLD NICOTINE PATCH TD SCH (09:00)
[2016-07-08] MEDS: SODIUM CHLORIDE 0.9% FLUSH 5 ML FLUSH IVF SCH ×2 (09:01→20:35)
--- NOTE | 2016-07-08 09:43 | HHI.PR ---
Subjective Remarks Follow-up small bowel obstruction 07/07/16-patient seen and examined, continue to complain of abdominal pain. Positive for bowel movement. Currently afebrile. Tolerating by mouth without any complication of nausea and vomiting. 07/08/16-patient seen and examined, reported improvement of some abdominal pain. Would like to be discharged this weekend however prior to discharge would like to have home health care set up Objective Vitals Vital Signs Date Time Temp Pulse Resp B/P Pulse Ox O2 Delivery O2 Flow Rate FiO2 07/08/16 08:00 97.9 62 20 117/64 94 07/08/16 06:19 78 07/08/16 04:00 97.6 68 18 105/65 96 07/08/16 00:00 97.4 54 18 111/57 94 07/08/16 00:00 Room Air 07/07/16 20:00 98.4 67 17 109/59 93 07/07/16 16:00 97.5 64 18 116/56 94 07/07/16 12:00 97.6 69 18 105/57 95 07/07/16 11:17 95 21 I/O 07/07/16 07/07/16 07/07/16 07/08/16 07/08/16 07/08/16 07:00 15:00 23:00 07:00 15:00 23:00 Intake Total 750 ml 720 ml 480 ml 380 ml Output Total 300 ml 600 ml Balance 450 ml 720 ml -120 ml 380 ml Intake Oral 650 ml 720 ml 480 ml 380 ml IV Total 100 ml Output Urine Total 300 ml 600 ml # Voids 5 2 # Bowel Movements 0 2 Result Diagram: 07/06/16 1348 07/04/16 0618 Objective Remarks GENERAL: NAD SKIN: Warm and dry. HEAD: Normocephalic. EYES: No scleral icterus. No injection or drainage. NECK: Supple, trachea midline. No JVD or lymphadenopathy. CARDIOVASCULAR: Regular rate and rhythm without murmurs, gallops, or rubs. RESPIRATORY: Breath sounds decreased bilaterally. No accessory muscle use. GASTROINTESTINAL: Abdomen soft, mildly tender, nondistended. Abdominal binder in place. MUSCULOSKELETAL: No cyanosis, or edema. BACK: Nontender without obvious deformity. No CVA tenderness. Procedures Status post dx lap, lap ninfa, repair of enterotomy 06/17/16 06/27/16 exploratory laparotomy, extensive NINFA, small bowel resection with primary anastomosis, placement of anti-adhesion barrier A/P Problem List: (1) Small bowel obstruction ICD Code: K56.69 Status: Resolved (2) Hyperlipidemia ICD Code: E78.5 Status: Chronic (3) Tobacco abuse ICD Code: Z72.0 Status: Chronic (4) COPD (chronic obstructive pulmonary disease) ICD Code: J44.9 Status: Chronic (5) Nicotine dependence ICD Code: F17.200 Status: Chronic (6) Hypertension ICD Code: I10 Status: Chronic Assessment and Plan 61 year-old female with Distal small bowel obstruction/ileus: . Status post dx lap, lap ninfa, repair of enterotomy 06/17/16. 06/27/16 exploratory laparotomy, extensive NINFA, small bowel resection with primary anastomosis, placement of anti-adhesion barrier. Appreciate input from general surgery. CT abdomen/pelvis 07/06/16 noted without any abscess. Currently on clindamycin and continue with current pain management. Continue current wound dressing change per protocol Hypertension: Continue Lopressor, pain control, Vasotec when necessary. History of COPD: Continue Symbicort, DuoNeb when necessary. Patient previously counseled on tobacco cessation. GERD: Continue PPI. Pepcid Nicotine dependence: Continue with nicotine patch DVT prophylaxis: bilateral SCDs. Patient refused heparin. She was made aware of the possible complications. Discharge Planning Likely discharge this weekend with home health care Lars Rockwell MD Jul 08, 2016 09:43
--- NOTE | 2016-07-08 22:06 | HHI.PR ---
Subjective Subjective Notes pt states improving but still with pain, no nausea, +bms Objective Vitals/I&O Vital Signs Date Time Temp Pulse Resp B/P Pulse Ox O2 Delivery O2 Flow Rate FiO2 07/08/16 20:39 Room Air 07/08/16 16:00 97.9 66 20 112/58 94 07/07/16 11:17 21 Radiology Last Impressions Small Bowel X-Ray 06/21/16 0700 Signed Impressions: Service Date/Time: Tuesday, June 21, 2016 08:54 - CONCLUSION: Unremarkable small bowel examination. No evidence of obstruction and no evidence of extravasation. Paramjit Lerner MD Abdomen/Pelvis CT 06/20/16 0000 Signed Impressions: Service Date/Time: Monday, June 20, 2016 18:42 - CONCLUSION: 1. Small bowel loops remain dilated to 3.4 cm most characteristic of an early or partial small bowel obstruction. Angulated small bowel loops in the lower pelvis suggest adhesions. 2. Loculated 5.2 cm fluid collection in the cul-de-sac without loculated air. 3. Dependent atelectasis or consolidation at both lung bases. Trace left pleural fluid. 4. No free air. Glenn Dougherty MD Abdomen X-Ray 06/17/16 0600 Signed Impressions: Service Date/Time: Friday, June 17, 2016 08:28 - CONCLUSION: 1. Continued findings of small bowel ileus. There has been no significant change when compared to the prior exam. Mitchell Sorenson MD Cardiovascular: Regular Abdomen: Other (incision well healing pack wet to dry) A/P Problem List: (1) Small bowel obstruction (2) GERD (gastroesophageal reflux disease) (3) Abdominal pain Assessment and Plan SBO PLAN s/p dx lap/OR exploratory laparotomy HALEY, bowel resection POD 15/9- Doing better , bowels moving CT no abscess, mild dilated loops, stool and gas in colon reg diet pack wound- increase to TID oob dvt ppx d/c planning c For dressing changes wean IV pain meds Problem Qualifiers (1) Abdominal pain: Qualified Code: R10.84 - Generalized abdominal pain Luis Medrano MD Jul 08, 2016 22:06
[2016-07-09] VITALS (9 sets, daily range): BP systolic 104–139; BP diastolic 59–83; PULSE 66–77; RESP 18–20; TEMP 97.6–97.9; O2SAT 94–95
[2016-07-09] MEDS: HYDROmorphone HCL PF 1 MG/ML VIAL IV PRN ×5 (00:28→23:30)
[2016-07-09] MEDS: CLINDAMYCIN INJ 600 MG in SODIUM CHLORIDE 0.9% INJ 100 ML IV SCH ×3 (04:53→19:59)
[2016-07-09] MEDS: ACETAMINOPHEN/HYDROcodone 325 MG/10 MG TAB PO PRN ×4 (04:56→19:58)
[2016-07-09] MEDS: METOCLOPRAMIDE HCL 10 MG/2 ML VIAL IV SCH ×3 (06:30→20:11)
[2016-07-09] MEDS: HEPARIN SODIUM - SQ 10,000 UNITS/ML VIAL SQ SCH ×3 (06:30→20:12)
[2016-07-09] MEDS: LACTATED RINGER'S 1000 ML IV SCH (08:30)
[2016-07-09] MEDS: NICOTINE 21 MG/24 HR PATCH TD SCH (08:49)
[2016-07-09] MEDS: FAMOTIDINE 20 MG TAB PO SCH ×2 (08:49→19:56)
[2016-07-09] MEDS: DOCUSATE SODIUM 50 MG/SENNA 8.6 MG TAB PO SCH ×2 (08:49→19:58)
[2016-07-09] MEDS: METOPROLOL SUCCINATE 50 MG EXTENDED RELEASE TAB PO SCH (08:49)
[2016-07-09] MEDS: amLODIPine BESYLATE 5 MG TAB PO SCH (08:49)
[2016-07-09] MEDS: SODIUM CHLORIDE 0.9% FLUSH 5 ML FLUSH IVF SCH ×2 (08:50→19:59)
[2016-07-09] MEDS: PANTOPRAZOLE SODIUM 40 MG VIAL IV PUSH SCH (08:50)
[2016-07-09] MEDS: REMOVE OLD NICOTINE PATCH TD SCH (08:56)
--- NOTE | 2016-07-09 10:56 | HHI.PR ---
Subjective Subjective Notes stable overnight, elizabeth po 1800 Objective Vitals/I&O Vital Signs Date Time Temp Pulse Resp B/P Pulse Ox O2 Delivery O2 Flow Rate FiO2 07/09/16 08:00 97.7 71 20 133/59 95 07/08/16 20:39 Room Air 07/07/16 11:17 21 Radiology Last Impressions Small Bowel X-Ray 06/21/16 0700 Signed Impressions: Service Date/Time: Tuesday, June 21, 2016 08:54 - CONCLUSION: Unremarkable small bowel examination. No evidence of obstruction and no evidence of extravasation. Paramjit Lerner MD Abdomen/Pelvis CT 06/20/16 0000 Signed Impressions: Service Date/Time: Monday, June 20, 2016 18:42 - CONCLUSION: 1. Small bowel loops remain dilated to 3.4 cm most characteristic of an early or partial small bowel obstruction. Angulated small bowel loops in the lower pelvis suggest adhesions. 2. Loculated 5.2 cm fluid collection in the cul-de-sac without loculated air. 3. Dependent atelectasis or consolidation at both lung bases. Trace left pleural fluid. 4. No free air. Glenn Dougherty MD Abdomen X-Ray 06/17/16 0600 Signed Impressions: Service Date/Time: Friday, June 17, 2016 08:28 - CONCLUSION: 1. Continued findings of small bowel ileus. There has been no significant change when compared to the prior exam. Mitchell Sorenson MD Cardiovascular: Regular Abdomen: Other (incision with packing scant drainage on dressing) A/P Problem List: (1) Small bowel obstruction (2) GERD (gastroesophageal reflux disease) (3) Abdominal pain Assessment and Plan SBO PLAN s/p dx lap/OR exploratory laparotomy HALEY, bowel resection POD 16/10- Doing better, bowels moving CT no abscess, mild dilated loops, stool and gas in colon reg diet pack wound- increase to TID oob dvt ppx d/c planning c For dressing changes wean IV pain meds Problem Qualifiers (1) Abdominal pain: Qualified Code: R10.84 - Generalized abdominal pain Luis Medrano MD Jul 09, 2016 10:56
[2016-07-09] MEDS ORDERED: COMMODE BEDSIDE1 MI1 (11:23)
[2016-07-09] MEDS ORDERED: WALKER WHEELS/F1 MIS (11:23)
--- NOTE | 2016-07-09 12:20 | HHI.PR ---
Subjective Remarks Follow-up small bowel obstruction 07/07/16-patient seen and examined, continue to complain of abdominal pain. Positive for bowel movement. Currently afebrile. Tolerating by mouth without any complication of nausea and vomiting. 07/08/16-patient seen and examined, reported improvement of some abdominal pain. Would like to be discharged this weekend however prior to discharge would like to have home health care set up 07/09/16-patient seen and examined. Vitals stable. Still with some abdominal pain. However patient now able to ambulate. Objective Vitals Vital Signs Date Time Temp Pulse Resp B/P Pulse Ox O2 Delivery O2 Flow Rate FiO2 07/09/16 08:15 Room Air 07/09/16 08:00 97.7 71 20 133/59 95 07/09/16 07:59 69 07/09/16 04:00 97.6 74 20 137/83 95 07/09/16 00:18 95 07/09/16 00:00 97.9 66 20 104/65 95 07/08/16 20:39 Room Air 07/08/16 20:00 97.6 68 20 116/57 97 07/08/16 16:00 97.9 66 20 112/58 94 I/O 07/08/16 07/08/16 07/08/16 07/09/16 07/09/16 07/09/16 07:00 15:00 23:00 07:00 15:00 23:00 Intake Total 380 ml 840 ml 240 ml 720 ml Balance 380 ml 840 ml 240 ml 720 ml Intake Oral 380 ml 840 ml 240 ml 720 ml # Voids 2 5 4 4 # Bowel Movements 0 1 0 Result Diagram: 07/06/16 1348 Objective Remarks GENERAL: NAD SKIN: Warm and dry. HEAD: Normocephalic. EYES: No scleral icterus. No injection or drainage. NECK: Supple, trachea midline. No JVD or lymphadenopathy. CARDIOVASCULAR: Regular rate and rhythm without murmurs, gallops, or rubs. RESPIRATORY: Breath sounds decreased bilaterally. No accessory muscle use. GASTROINTESTINAL: Abdomen soft, mildly tender, nondistended. Abdominal binder in place. MUSCULOSKELETAL: No cyanosis, or edema. BACK: Nontender without obvious deformity. No CVA tenderness. Procedures Status post dx lap, lap ninfa, repair of enterotomy 06/17/16 06/27/16 exploratory laparotomy, extensive NINFA, small bowel resection with primary anastomosis, placement of anti-adhesion barrier A/P Problem List: (1) Small bowel obstruction ICD Code: K56.69 Status: Resolved (2) Hyperlipidemia ICD Code: E78.5 Status: Chronic (3) Tobacco abuse ICD Code: Z72.0 Status: Chronic (4) COPD (chronic obstructive pulmonary disease) ICD Code: J44.9 Status: Chronic (5) Nicotine dependence ICD Code: F17.200 Status: Chronic (6) Hypertension ICD Code: I10 Status: Chronic Assessment and Plan 61 year-old female with Distal small bowel obstruction/ileus: . Status post dx lap, lap ninfa, repair of enterotomy 06/17/16. 06/27/16 exploratory laparotomy, extensive NINFA, small bowel resection with primary anastomosis, placement of anti-adhesion barrier. Appreciate input from general surgery. CT abdomen/pelvis 07/06/16 noted without any abscess. Currently on clindamycin and continue with current pain management. Continue current wound dressing change per protocol. Wean off pain medication Hypertension: Continue Lopressor, pain control, Vasotec when necessary. History of COPD: Continue Symbicort, DuoNeb when necessary. Patient previously counseled on tobacco cessation. GERD: Continue PPI. Pepcid Nicotine dependence: Continue with nicotine patch DVT prophylaxis: bilateral SCDs. Patient refused heparin. She was made aware of the possible complications. Discharge Planning Likely discharge this weekend with home health care Lars Rockwell MD Jul 09, 2016 12:20
[2016-07-09] MEDS: SODIUM CHLORIDE 0.9% FLUSH 5 ML FLUSH IVF PRN (23:30)
[2016-07-10] VITALS (9 sets, daily range): BP systolic 126–161; BP diastolic 63–90; PULSE 60–80; RESP 17–20; TEMP 96.6–98.2; O2SAT 95–98
[2016-07-10] MEDS: ACETAMINOPHEN/HYDROcodone 325 MG/10 MG TAB PO PRN ×2 (00:31→06:36)
[2016-07-10] MEDS: CLINDAMYCIN INJ 600 MG in SODIUM CHLORIDE 0.9% INJ 100 ML IV SCH (04:48)
[2016-07-10] MEDS: HYDROmorphone HCL PF 1 MG/ML VIAL IV PRN ×3 (04:53→15:55)
[2016-07-10] MEDS: METOCLOPRAMIDE HCL 10 MG/2 ML VIAL IV SCH ×3 (04:54→21:24)
[2016-07-10] MEDS: SODIUM CHLORIDE 0.9% FLUSH 5 ML FLUSH IVF PRN (04:54)
[2016-07-10] MEDS: HEPARIN SODIUM - SQ 10,000 UNITS/ML VIAL SQ SCH ×3 (04:58→21:24)
[2016-07-10] MEDS: LACTATED RINGER'S 1000 ML IV SCH (08:30)
[2016-07-10] MEDS: PANTOPRAZOLE SOD 40 MG DELAYED RELEASE TAB PO SCH (09:21)
[2016-07-10] MEDS: METOPROLOL SUCCINATE 50 MG EXTENDED RELEASE TAB PO SCH (09:21)
[2016-07-10] MEDS: amLODIPine BESYLATE 5 MG TAB PO SCH (09:21)
[2016-07-10] MEDS: FAMOTIDINE 20 MG TAB PO SCH ×2 (09:21→21:25)
[2016-07-10] MEDS: DOCUSATE SODIUM 50 MG/SENNA 8.6 MG TAB PO SCH ×2 (09:21→21:24)
[2016-07-10] MEDS: SODIUM CHLORIDE 0.9% FLUSH 5 ML FLUSH IVF SCH ×2 (09:22→21:25)
[2016-07-10] MEDS: NICOTINE 21 MG/24 HR PATCH TD SCH (09:24)
[2016-07-10] MEDS: REMOVE OLD NICOTINE PATCH TD SCH (09:24)
--- NOTE | 2016-07-10 10:03 | HHI.PR ---
Subjective Subjective Notes tolerating diet, +bms Objective Vitals/I&O Vital Signs Date Time Temp Pulse Resp B/P Pulse Ox O2 Delivery O2 Flow Rate FiO2 07/10/16 08:00 97.6 70 18 137/66 98 07/09/16 20:15 Room Air 07/09/16 08:31 21 Radiology Last Impressions Small Bowel X-Ray 06/21/16 0700 Signed Impressions: Service Date/Time: Tuesday, June 21, 2016 08:54 - CONCLUSION: Unremarkable small bowel examination. No evidence of obstruction and no evidence of extravasation. Paramjit Lerner MD Abdomen/Pelvis CT 06/20/16 0000 Signed Impressions: Service Date/Time: Monday, June 20, 2016 18:42 - CONCLUSION: 1. Small bowel loops remain dilated to 3.4 cm most characteristic of an early or partial small bowel obstruction. Angulated small bowel loops in the lower pelvis suggest adhesions. 2. Loculated 5.2 cm fluid collection in the cul-de-sac without loculated air. 3. Dependent atelectasis or consolidation at both lung bases. Trace left pleural fluid. 4. No free air. Glenn Dougherty MD Abdomen X-Ray 06/17/16 0600 Signed Impressions: Service Date/Time: Friday, June 17, 2016 08:28 - CONCLUSION: 1. Continued findings of small bowel ileus. There has been no significant change when compared to the prior exam. Mitchell Sorenson MD Cardiovascular: Regular Lungs: Clear Abdomen: Other (incision with packing, well healing ) A/P Problem List: (1) Small bowel obstruction (2) GERD (gastroesophageal reflux disease) (3) Abdominal pain Assessment and Plan SBO PLAN s/p dx lap/OR exploratory laparotomy HALEY, bowel resection POD 17- Doing better, bowels moving CT no abscess, mild dilated loops, stool and gas in colon reg diet pack wound- increase to TID oob dvt ppx d/c planning c For dressing changes wean IV pain meds PO percocet added norco d/buck, wean iv meds d/c home tomorrow Problem Qualifiers (1) Abdominal pain: Qualified Code: R10.84 - Generalized abdominal pain Luis Medrano MD Jul 10, 2016 10:03
--- NOTE | 2016-07-10 11:46 | HHI.PR ---
Subjective Remarks Follow-up small bowel obstruction 07/07/16-patient seen and examined, continue to complain of abdominal pain. Positive for bowel movement. Currently afebrile. Tolerating by mouth without any complication of nausea and vomiting. 07/08/16-patient seen and examined, reported improvement of some abdominal pain. Would like to be discharged this weekend however prior to discharge would like to have home health care set up 07/09/16-patient seen and examined. Vitals stable. Still with some abdominal pain. However patient now able to ambulate. 07/10/16-patient seen and examined; she reports ambulating more and tolerating by mouth. States she will be ready for discharge tomorrow Objective Vitals Vital Signs Date Time Temp Pulse Resp B/P Pulse Ox O2 Delivery O2 Flow Rate FiO2 07/10/16 08:00 97.6 70 18 137/66 98 07/10/16 04:00 98.2 80 20 161/76 96 07/10/16 00:00 73 18 135/73 96 07/09/16 20:15 Room Air 07/09/16 20:00 77 07/09/16 20:00 97.8 72 18 130/64 95 07/09/16 16:00 97.6 69 20 139/75 94 07/09/16 12:00 97.7 70 20 136/67 95 I/O 07/09/16 07/09/16 07/09/16 07/10/16 07/10/16 07/10/16 07:00 15:00 23:00 07:00 15:00 23:00 Intake Total 720 ml 824 ml Balance 720 ml 824 ml Intake Oral 720 ml 720 ml IV Total 104 ml # Voids 4 4 1 # Bowel Movements 0 1 1 Result Diagram: 07/06/16 1348 Objective Remarks GENERAL: NAD SKIN: Warm and dry. HEAD: Normocephalic. EYES: No scleral icterus. No injection or drainage. NECK: Supple, trachea midline. No JVD or lymphadenopathy. CARDIOVASCULAR: Regular rate and rhythm without murmurs, gallops, or rubs. RESPIRATORY: Breath sounds decreased bilaterally. No accessory muscle use. GASTROINTESTINAL: Abdomen soft, mildly tender, nondistended. Abdominal binder in place. MUSCULOSKELETAL: No cyanosis, or edema. BACK: Nontender without obvious deformity. No CVA tenderness. Procedures Status post dx lap, lap ninfa, repair of enterotomy 06/17/16 06/27/16 exploratory laparotomy, extensive NINFA, small bowel resection with primary anastomosis, placement of anti-adhesion barrier A/P Problem List: (1) Small bowel obstruction ICD Code: K56.69 Status: Resolved (2) Hyperlipidemia ICD Code: E78.5 Status: Chronic (3) Tobacco abuse ICD Code: Z72.0 Status: Chronic (4) COPD (chronic obstructive pulmonary disease) ICD Code: J44.9 Status: Chronic (5) Nicotine dependence ICD Code: F17.200 Status: Chronic (6) Hypertension ICD Code: I10 Status: Chronic Assessment and Plan 61 year-old female with Distal small bowel obstruction/ileus: . Status post dx lap, lap ninfa, repair of enterotomy 06/17/16. 06/27/16 exploratory laparotomy, extensive NINFA, small bowel resection with primary anastomosis, placement of anti-adhesion barrier. Appreciate input from general surgery. CT abdomen/pelvis 07/06/16 noted without any abscess. Switch to by mouth clindamycin and continue with current pain management. Continue current wound dressing change per protocol. Wean off pain medication Hypertension: Continue Lopressor, pain control, Vasotec when necessary. History of COPD: Continue Symbicort, DuoNeb when necessary. Patient previously counseled on tobacco cessation. GERD: Continue PPI. Pepcid Nicotine dependence: Continue with nicotine patch DVT prophylaxis: bilateral SCDs. Discharge Planning Likely discharge tomorrow. Buried 13 2016 with home health care Lars Rockwell MD Jul 10, 2016 11:45
[2016-07-10] MEDS: CLINDAMYCIN 150 MG CAP PO SCH ×2 (13:01→18:21)
[2016-07-10] MEDS: oxyCODONE/ACETAMINOPHEN 10 MG/325 MG TAB PO PRN (21:27)
[2016-07-11] MEDS: CLINDAMYCIN 150 MG CAP PO SCH ×3 (01:24→12:35)
[2016-07-11] MEDS: oxyCODONE/ACETAMINOPHEN 10 MG/325 MG TAB PO PRN ×3 (01:24→09:33)
[2016-07-11] MEDS: HYDROmorphone HCL PF 1 MG/ML VIAL IV PRN (03:28)
[2016-07-11] MEDS: METOCLOPRAMIDE HCL 10 MG/2 ML VIAL IV SCH (05:05)
[2016-07-11] MEDS: HEPARIN SODIUM - SQ 10,000 UNITS/ML VIAL SQ SCH (05:06)
[2016-07-11 05:30] VITALS: BP 145/90; PULSE 69; RESP 17; TEMP 98.1; O2SAT 98
[2016-07-11 08:29] VITALS: BP 147/69; PULSE 71; RESP 18; TEMP 97.4; O2SAT 96
[2016-07-11] MEDS: PANTOPRAZOLE SOD 40 MG DELAYED RELEASE TAB PO SCH (09:23)
[2016-07-11] MEDS: FAMOTIDINE 20 MG TAB PO SCH (09:23)
[2016-07-11] MEDS: LACTATED RINGER'S 1000 ML IV SCH (09:23)
[2016-07-11] MEDS: METOPROLOL SUCCINATE 50 MG EXTENDED RELEASE TAB PO SCH (09:23)
[2016-07-11] MEDS: NICOTINE 21 MG/24 HR PATCH TD SCH (09:23)
[2016-07-11] MEDS: amLODIPine BESYLATE 5 MG TAB PO SCH (09:24)
[2016-07-11] MEDS: DOCUSATE SODIUM 50 MG/SENNA 8.6 MG TAB PO SCH (09:24)
[2016-07-11] MEDS: REMOVE OLD NICOTINE PATCH TD SCH (09:24)
[2016-07-11] MEDS: SODIUM CHLORIDE 0.9% FLUSH 5 ML FLUSH IVF SCH (09:24)
[2016-07-11 09:46] VITALS: PULSE 72
--- NOTE | 2016-07-11 10:44 | HHI.DS ---
Discharge Summary Admission Date Jun 14, 2016 at 07:02 Discharge Date: Jul 11, 2016 Admitting Diagnosis Small bowel obstruction (1) Small bowel obstruction ICD Code: K56.69 (2) Hyperlipidemia ICD Code: E78.5 (3) Tobacco abuse ICD Code: Z72.0 (4) COPD (chronic obstructive pulmonary disease) ICD Code: J44.9 (5) Nicotine dependence ICD Code: F17.200 (6) Hypertension ICD Code: I10 Procedures Status post dx lap, lap ninfa, repair of enterotomy 06/17/16 06/27/16 exploratory laparotomy, extensive NINFA, small bowel resection with primary anastomosis, placement of anti-adhesion barrier Brief History - From Admission 61-year-old female with a history of COPD, prior surgical history of lap cholecystectomy, appendectomy, VILMA presented to the ED for evaluation of an acute onset of worsening abdominal pain x greater than 24hours duration and described as stabbing and constant rated 10/10 in intensity associated with intractable nausea and vomiting. She reported multiple episodes of emesis nonbilious without any evidence of gross bleed. Patient reports her last BM few hours prior to the onset of abdominal pain and only had one flatus at 2 AM this morning. She denies any relief. During my exam she was constantly moaning. She feels short of breath secondary to emesis and abdominal pain otherwise denies any chest pain. There is no bladder dysfunction. Imaging Last Impressions Abdomen/Pelvis CT 07/06/16 0000 Signed Impressions: Service Date/Time: Wednesday, July 06, 2016 15:41 - CONCLUSION: 1. Fluid-filled mildly dilated loops of small bowel throughout the abdomen and pelvis raising the possibility of partial small bowel obstruction or small bowel ileus. The suture line within the pelvis demonstrates no significant dilatation which would suggest possible transition point. Clinical correlation is recommended. 2. Uncomplicated colonic diverticulosis. 3. Degenerative changes and scoliosis of the thoracolumbar spine. 4. Posterior bibasilar atelectasis. Nasim Nance MD Abdomen X-Ray 06/24/16 0000 Signed Impressions: Service Date/Time: Friday, June 24, 2016 10:38 - CONCLUSION: Nonspecific abdomen with persistent air throughout the small bowel not disproportionate relative to colon. Pelvic tubular drain removed. Diverticuli appreciated of the descending and sigmoid colon. Paramjit Lerner MD Small Bowel X-Ray 06/21/16 0700 Signed Impressions: Service Date/Time: Tuesday, June 21, 2016 08:54 - CONCLUSION: Unremarkable small bowel examination. No evidence of obstruction and no evidence of extravasation. Paramjit Lerner MD PE at Discharge GENERAL: NAD SKIN: Warm and dry. HEAD: Normocephalic. EYES: No scleral icterus. No injection or drainage. NECK: Supple, trachea midline. No JVD or lymphadenopathy. CARDIOVASCULAR: Regular rate and rhythm without murmurs, gallops, or rubs. RESPIRATORY: Breath sounds decreased bilaterally. No accessory muscle use. GASTROINTESTINAL: Abdomen soft, mildly tender, nondistended. Abdominal binder in place. MUSCULOSKELETAL: No cyanosis, or edema. BACK: Nontender without obvious deformity. No CVA tenderness. Hospital Course Patient was admitted secondary to distal small bowel obstruction for which Gen. surgery was consulted and she underwent initially upper endoscopy lysis of adhesion and repair of enterotomy on 06/17/16. However she was taken back again to operating room on 06/27/16 for exploratory laparotomy, extensive NINFA, small bowel resection with primary anastomosis, placement of anti-adhesion barrier. Daily flat and upright monitor. Pain management was provided. Patient diet was advanced accordingly. Her chronic medical condition for hypertension and COPD with treat accordingly. She was provided nicotine patch 4 nicotine dependence. DVT and GI prophylaxis were provided. PT was consulted. Hypertension: Continue Lopressor, pain control, Vasotec when necessary. Pt Condition on Discharge: Fair Discharge Disposition: Disch w/ Home Health Serv Discharge Time: > 30 minutes Discharge Instructions DIET: Follow Instructions for: Heart Healthy Diet, Diabetic Diet Activities you can perform: Weight Bearing as Randy Follow up Referrals: Colorectal Surgery - 10 Days with Luis Medrano MD PCP Follow-up - 1 Week New Medications: Commode Bedside (Commode Bedside) 1 Mis Mis 1 EA .ROUTE DIRECTED #1 EA Walker with Front Wheels (Walker with Front Wheels) 1 Mis Mis 1 EA .ROUTE DIRECTED #1 Ref 0 EA Amlodipine (Norvasc) 5 Mg Tab 5 MG PO DAILY htn #30 TAB Clindamycin (Cleocin) 150 Mg Cap 300 MG PO Q6HR Infection #21 CAP Sennosides-Docusate Sodium (Senna Plus 8.6-50 mg) 1 Tab Tab 1 TAB PO BID Bowel Management #20 TAB Continued Medications: Albuterol 8.5 GM Inh (Proair Hfa 8.5 GM Inh) 90 Mcg/Act Aer 2 PUFF INH Q4HR 108 mcg/actuation SHORTNESS OF BREATH #1 Ref 0 INHALER Metoprolol Succinate ER 24 HR (Metoprolol Succinate ER 24 HR) 50 Mg Tab 50 MG PO DAILY #30 Ref 0 TAB Omeprazole (Omeprazole) 40 Mg Cap 40 MG PO DAILY #30 Ref 0 CAP Discontinued Medications: Albuterol Neb (Albuterol Neb) 2.5 Mg/3 Ml Neb 2.5 MG NEB Q4HR While awake #60 Ref 0 NEBULE Hydrocodone-Acetaminophen ([place]) 10-325 Mg Tab 1 TAB PO Q6H PAIN Ref 0 TAB Lars Rockwell MD Jul 11, 2016 10:44 Albuterol Neb (Albuterol Neb) 2.5 Mg/3 Ml Neb 2.5 MG NEB Q4HR While awake #60 Ref 0 NEBULE Hydrocodone-Acetaminophen ([place]) 10-325 Mg Tab 1 TAB PO Q6H PAIN Ref 0 TAB Lars Rockwell MD Jul 11, 2016 10:44
[2016-07-11] MEDS ORDERED: CLIN150 PO (10:46)
[2016-07-11 11:00] VITALS: O2SAT 96
--- NOTE | 2016-07-11 11:09 | HHI.PR ---
Subjective Subjective Notes tolerating diet, +bms pain controlled with po meds Objective Vitals/I&O Vital Signs Date Time Temp Pulse Resp B/P Pulse Ox O2 Delivery O2 Flow Rate FiO2 07/11/16 08:29 97.4 71 18 147/69 96 07/10/16 20:15 21 07/10/16 20:00 Room Air Radiology Last Impressions Small Bowel X-Ray 06/21/16 0700 Signed Impressions: Service Date/Time: Tuesday, June 21, 2016 08:54 - CONCLUSION: Unremarkable small bowel examination. No evidence of obstruction and no evidence of extravasation. Paramjit Lerner MD Abdomen/Pelvis CT 06/20/16 0000 Signed Impressions: Service Date/Time: Monday, June 20, 2016 18:42 - CONCLUSION: 1. Small bowel loops remain dilated to 3.4 cm most characteristic of an early or partial small bowel obstruction. Angulated small bowel loops in the lower pelvis suggest adhesions. 2. Loculated 5.2 cm fluid collection in the cul-de-sac without loculated air. 3. Dependent atelectasis or consolidation at both lung bases. Trace left pleural fluid. 4. No free air. Glenn Dougherty MD Abdomen X-Ray 06/17/16 0600 Signed Impressions: Service Date/Time: Friday, June 17, 2016 08:28 - CONCLUSION: 1. Continued findings of small bowel ileus. There has been no significant change when compared to the prior exam. Mitchell Sorenson MD Cardiovascular: Regular Abdomen: Other (incision with packing clean) A/P Problem List: (1) Small bowel obstruction (2) GERD (gastroesophageal reflux disease) (3) Abdominal pain Assessment and Plan SBO PLAN s/p dx lap/OR exploratory laparotomy HALEY, bowel resection POD 18/12- Doing better, bowels moving CT no abscess, mild dilated loops, stool and gas in colon reg diet pack wound oob dvt ppx d/c planning [facility] For dressing changes wean IV pain meds PO [id number] d/c home today Problem Qualifiers (1) Abdominal pain: Qualified Code: R10.84 - Generalized abdominal pain Luis Medrano MD Jul 11, 2016 11:09
--- NOTE | 2016-07-11 11:43 | HHI.PR ---
Subjective Remarks Follow-up small bowel obstruction 07/07/16-patient seen and examined, continue to complain of abdominal pain. Positive for bowel movement. Currently afebrile. Tolerating by mouth without any complication of nausea and vomiting. 07/08/16-patient seen and examined, reported improvement of some abdominal pain. Would like to be discharged this weekend however prior to discharge would like to have home health care set up 07/09/16-patient seen and examined. Vitals stable. Still with some abdominal pain. However patient now able to ambulate. 07/10/16-patient seen and examined; she reports ambulating more and tolerating by mouth. States she will be ready for discharge tomorrow 07/11/16-patient seen and examined; stable and no complaint. Ready for discharge home. Afebrile Objective Vitals Vital Signs Date Time Temp Pulse Resp B/P Pulse Ox O2 Delivery O2 Flow Rate FiO2 07/11/16 08:29 97.4 71 18 147/69 96 07/11/16 05:30 98.1 69 17 145/90 98 07/10/16 21:50 97.8 74 17 153/90 96 07/10/16 20:15 21 07/10/16 20:00 Room Air 07/10/16 16:00 96.6 75 18 146/72 96 07/10/16 12:00 97.8 63 17 126/63 98 I/O 07/10/16 07/10/16 07/10/16 07/11/16 07/11/16 07/11/16 07:00 15:00 23:00 07:00 15:00 23:00 Intake Total 4 ml 900 ml 925 ml Balance 4 ml 900 ml 925 ml Intake Oral 900 ml 925 ml IV Total 4 ml # Voids 1 0 5 # Bowel Movements 1 0 3 Objective Remarks GENERAL: NAD SKIN: Warm and dry. HEAD: Normocephalic. EYES: No scleral icterus. No injection or drainage. NECK: Supple, trachea midline. No JVD or lymphadenopathy. CARDIOVASCULAR: Regular rate and rhythm without murmurs, gallops, or rubs. RESPIRATORY: Breath sounds decreased bilaterally. No accessory muscle use. GASTROINTESTINAL: Abdomen soft, mildly tender, nondistended. Abdominal binder in place. MUSCULOSKELETAL: No cyanosis, or edema. BACK: Nontender without obvious deformity. No CVA tenderness. Procedures Status post dx lap, lap ninfa, repair of enterotomy 06/17/16 06/27/16 exploratory laparotomy, extensive NINFA, small bowel resection with primary anastomosis, placement of anti-adhesion barrier A/P Problem List: (1) Small bowel obstruction ICD Code: K56.69 Status: Resolved (2) Hyperlipidemia ICD Code: E78.5 Status: Chronic (3) Tobacco abuse ICD Code: Z72.0 Status: Chronic (4) COPD (chronic obstructive pulmonary disease) ICD Code: J44.9 Status: Chronic (5) Nicotine dependence ICD Code: F17.200 Status: Chronic (6) Hypertension ICD Code: I10 Status: Chronic Assessment and Plan 61 year-old female with Distal small bowel obstruction/ileus: . Status post dx lap, lap ninfa, repair of enterotomy 06/17/16. 06/27/16 exploratory laparotomy, extensive NINFA, small bowel resection with primary anastomosis, placement of anti-adhesion barrier. Appreciate input from general surgery. CT abdomen/pelvis 07/06/16 noted without any abscess. clindamycin and continue with current pain management. Continue current wound dressing change per protocol. Wean off pain medication Hypertension: Continue Lopressor, pain control, Vasotec when necessary. History of COPD: Continue Symbicort, DuoNeb when necessary. Patient previously counseled on tobacco cessation. GERD: Continue PPI. Pepcid Nicotine dependence: Continue with nicotine patch DVT prophylaxis: bilateral SCDs. Discharge home today Discharge Planning Discharge home Lars Rockwell MD Jul 11, 2016 11:43
[2016-07-11] MEDS ORDERED: OXYC1TAB36 PO (11:45)
[2016-07-11] MEDS ORDERED: SENN1TAB PO (11:45)
[2016-07-11] MEDS ORDERED: PERC10TA27 PO ×2 (12:55→13:02)
[2016-07-11 14:32] VITALS: BP 121/59; PULSE 97; RESP 22; TEMP 98.3; O2SAT 97
== END 2016-07-11 13:24 | disposition home health service (06) | DRG 330 ==
LOC: NEPC 04:48 → NEDA 07:02 → N04A 13:42 → N07B 06-27 08:44 → N04A 06-27 09:37
PROVIDERS: ADMIT Hospitalist; ATTEND Hospitalist
PROC: 0DQ84ZZ Repair Small Intestine, Percutaneous Endoscopic Approach (ICD-10-PCS; 2016-06-17)
PROC: 0DNW4ZZ Release Peritoneum, Percutaneous Endoscopic Approach (ICD-10-PCS; 2016-06-17)
PROC: 0DQV4ZZ Repair Mesentery, Percutaneous Endoscopic Approach (ICD-10-PCS; 2016-06-17)
PROC: 0DN84ZZ Release Small Intestine, Percutaneous Endoscopic Approach (ICD-10-PCS; principal; 2016-06-17 16:35)
PROC: 0DBB0ZZ Excision of Ileum, Open Approach (ICD-10-PCS; 2016-06-27)
PROC: 0DN80ZZ Release Small Intestine, Open Approach (ICD-10-PCS; 2016-06-27)
PROC: 3E0M05Z Introduction of Adhesion Barrier into Peritoneal Cavity, Open Approach (ICD-10-PCS; 2016-06-27)
DX: K56.5 Intestinal adhesions [bands] with obstruction (postinfection) (principal); K91.3 Postprocedural intestinal obstruction; J44.9 Chronic obstructive pulmonary disease, unspecified; I10 Essential (primary) hypertension; E78.5 Hyperlipidemia, unspecified; E87.6 Hypokalemia; D72.829 Elevated white blood cell count, unspecified; E86.0 Dehydration; F17.210 Nicotine dependence, cigarettes, uncomplicated; K21.9 Gastro-esophageal reflux disease without esophagitis; Z88.5 Allergy status to narcotic agent; Z88.2 Allergy status to sulfonamides; Z88.0 Allergy status to penicillin; Z23 Encounter for immunization
CPT/HCPCS: 74000; 74020; 74177; 74250; 76937; 80048; 80053; 81001; 82550; 82948; 83605; 83690; 84134; 84484; 85025; 85027; 85610; 85730; 86140; 87040; 87493; 88307; 90471; 90472; 90686; 90732; 93005; 94150; 94640; 94664; 96361; 96374; 96375; C1765; C9113; G0008; G0009; J0131; J0744; J1100; J1170; J1450; J1644; J1885; J2060; J2250; J2370; J2405; J2765; J3010; J3410; J3480; J7030; J7040; J7120; Q2038; Q9963; Q9967

== ENCOUNTER 2017-10-23 03:27 | Emergency (ER) | payer MEDICAID ==
[~2017-10-23] VITALS: Ht 170.2 cm; Wt 70.0 kg
[~2017-10-23 03:27] MED LIST changes: -ALBU0.08 NEB; +AMLO5 PO; +CLIN150 PO; +COMMODE BEDSIDE1 MI1; -HYDR-3366 PO; +METO1TAB9 PO; -METO50TA11 PO; +PERC10TA27 PO; +SENN1TAB PO; -TRAZ100T4 PO; +WALKER WHEELS/F1 MIS
[2017-10-23 03:32] VITALS: BP 124/76; PULSE 87; RESP 20; TEMP 97.6; O2SAT 98
--- NOTE | 2017-10-23 04:07 | PD ---
HPI Chief Complaint: Skin Problem Time Seen by Provider: 04:04 Travel History International Travel<30 days: No Contact w/Intl Traveler<30days: No Traveled to known affect area: No History of Present Illness HPI 62-year-old female presents to the emergency department complaint of several days of painful rash to the chin across the midline with her knee colored crusting and mild drainage also small amount to the nose. Patient has had no fever no chills no nausea no vomiting but has had some noted tongue swelling patient denies any known allergens no foods no detergents no linens no medications no medic no antibiotics and no prior history of soft tissue swelling of the tongue and denies any lip swelling stridor or hoarseness. No shortness of breath no syncope no near syncope. Patient does not take lisinopril. PFSH Past Medical History Arthritis: Yes Autoimmune Disease: No Blood Disorders: No Anxiety: No Depression: No Heart Rhythm Problems: No Cancer: No Cardiac Catheterization: No Cardiovascular Problems: Yes (HTN) High Cholesterol: No Congestive Heart Failure: No COPD: Yes Diabetes: No Diminished Hearing: No Diverticulitis: Yes Endocrine: No Gastrointestinal Disorders: Yes (ABD PAIN, VOMITING) GERD: Yes Genitourinary: No Hepatitis: No Hiatal Hernia: No Heparin Induced Thrombocytopen: No Hypertension: Yes (NOT ON MEDICATION) Immune Disorder: No Implanted Vascular Access Dvce: No Musculoskeletal: Yes Neurologic: No Psychiatric: No Reproductive: No Respiratory: Yes Immunizations Current: No Thyroid Disease: No Tetanus Vaccination: < 5 Years Influenza Vaccination: Yes Menopausal: Yes Past Surgical History Abdominal Surgery: Yes (CHOLECYSTECTOMY) Appendectomy: Yes Section: Yes (1974, 1976, 1979) Cholecystectomy: Yes Coronary Artery Bypass Graft: No Gynecologic Surgery: Yes (C SECTION X 3, UTERINE RUPTURE, HYSTERECTOMY) Hysterectomy: Yes (1981) Joint Replacement: Yes (BILAT KNEE REPLACEMENT ) Pacemaker: No Other Surgery: Yes Family History Family Myocardial Infarction: Yes Social History Alcohol Use: No Tobacco Use: Yes (06/01 PPD) Substance Use: No Allergies-Medications (Allergen,Severity, Reaction): Coded Allergies: Sulfa (Sulfonamide Antibiotics) (Unverified Allergy, Severe, 10/23/17) penicillin G (Unverified Allergy, Severe, Hives, 10/23/17) morphine (Unverified Adverse Reaction, Mild, ITCHING, 10/23/17) oxycodone (Unverified Adverse Reaction, Mild, ITCHING, 10/23/17) Reported Meds & Prescriptions Reported Meds & Active Scripts Active Tramadol (Tramadol HCl) 50 Mg Tab 50 Mg PO Q6H PRN Doxycycline Hyclate 100 Mg Cap 100 Mg PO BID Senna Plus 8.6-50 mg (Sennosides-Docusate Sodium) 1 Tab Tab 1 Tab PO BID Cleocin (Clindamycin HCl) 150 Mg Cap 300 Mg PO Q6HR Walker with Front Wheels (Device) 1 Mis Mis 1 Ea .ROUTE DIRECTED Commode Bedside (Device) 1 Mis Mis 1 Ea .ROUTE DIRECTED Norvasc (Amlodipine Besylate) 5 Mg Tab 5 Mg PO DAILY Reported Percocet (Oxycodone-Acetaminophen) 10-325 mg Tab 1-2 Tab PO Q4H PRN Proair Hfa 8.5 GM Inh (Albuterol Sulfate) 90 Mcg/Act Aer 2 Puff INH Q4HR 108 mcg/actuation Omeprazole 40 Mg Cap 40 Mg PO DAILY Metoprolol Succinate ER 24 HR (Metoprolol Succinate) 50 Mg Tab 50 Mg PO DAILY Review of Systems Except as stated in HPI: all other systems reviewed are Neg General / Constitutional: No: Fever, Chills HENT: No: Sore Throat, Congestion Cardiovascular: No: Chest Pain or Discomfort Respiratory: No: Cough, Shortness of Breath, Wheezing Gastrointestinal: No: Nausea, Vomiting, Diarrhea Genitourinary: No: Dysuria Musculoskeletal: No: Myalgias, Arthralgias Skin: Positive Rash Neurologic: No: Weakness, Dizziness, Syncope Psychiatric: No: Anxiety (Hernandez), Depression Hematologic/Lymphatic: No: Easy Bruising Physical Exam Narrative GENERAL: Well-developed well-nourished female in no acute distress no respiratory SKIN: Warm and dry. Crusting honeycomb rash with some erythema across the midline no vesicles no pustules. HEAD: Normocephalic. EYES: No scleral icterus. No injection or drainage. NECK: Supple, trachea midline. No JVD or lymphadenopathy. CARDIOVASCULAR: Regular rate and rhythm without murmurs, gallops, or rubs. RESPIRATORY: Breath sounds equal bilaterally. No accessory muscle use. GASTROINTESTINAL: Abdomen soft, non-tender, nondistended. MUSCULOSKELETAL: No cyanosis, or edema. BACK: Nontender without obvious deformity. No CVA tenderness. Data Data Last Documented VS Vital Signs Date Time Temp Pulse Resp B/P (MAP) Pulse Ox O2 Delivery O2 Flow Rate FiO2 10/23/17 08:36 10/23/17 07:53 76 16 98 Room Air 10/23/17 03:32 97.6 Orders Orders Basic Metabolic Panel (Bmp) (10/23/17 04:04) Complete Blood Count With Diff (10/23/17 04:04) Iv Access Insert/Monitor (10/23/17 04:04) Clindamycin Inj (Cleocin Inj) (10/23/17 04:15) Methylprednisolone So Succ Inj (Solumedr (10/23/17 04:15) Diphenhydramine Inj (Benadryl Inj) (10/23/17 04:15) Famotidine Inj (Pepcid Inj) (10/23/17 04:15) Doxycycline (Vibramycin) (10/23/17 06:30) Tramadol (Ultram) (10/23/17 06:30) Sodium Chlorid 0.9% 500 Ml Inj (Ns 500 M (10/23/17 06:45) Ed Discharge Order (10/23/17 08:01) Labs Laboratory Tests Test 10/23/17 05:20 White Blood Count 8.7 TH/MM3 Red Blood Count 5.29 MIL/MM3 Hemoglobin 15.3 GM/DL Hematocrit 45.5 % Mean Corpuscular Volume 86.0 FL Mean Corpuscular Hemoglobin 28.9 PG Mean Corpuscular Hemoglobin Concent 33.7 % Red Cell Distribution Width 13.7 % Platelet Count 201 TH/MM3 Mean Platelet Volume 8.7 FL Neutrophils (%) (Auto) 72.1 % Lymphocytes (%) (Auto) 17.6 % Monocytes (%) (Auto) 8.0 % Eosinophils (%) (Auto) 1.7 % Basophils (%) (Auto) 0.6 % Neutrophils # (Auto) 6.3 TH/MM3 Lymphocytes # (Auto) 1.5 TH/MM3 Monocytes # (Auto) 0.7 TH/MM3 Eosinophils # (Auto) 0.2 TH/MM3 Basophils # (Auto) 0.1 TH/MM3 CBC Comment DIFF FINAL Differential Comment Blood Urea Nitrogen 15 MG/DL Creatinine 0.84 MG/DL Random Glucose 111 MG/DL Calcium Level 8.6 MG/DL Sodium Level 141 MEQ/L Potassium Level 3.9 MEQ/L Chloride Level 106 MEQ/L Carbon Dioxide Level 27.6 MEQ/L Anion Gap 7 MEQ/L Estimat Glomerular Filtration Rate 69 ML/MIN [facility] Medical Decision Making Medical Screen Exam Complete: Yes Emergency Medical Condition: Yes Medical Record Reviewed: Yes Interpretation(s) CBC & BMP Diagram 10/23/17 05:20 Calcium Level 8.6 Vital Signs Date Time Temp Pulse Resp B/P (MAP) Pulse Ox O2 Delivery O2 Flow Rate FiO2 10/23/17 03:32 97.6 87 20 124/76 (92) 98 Differential Diagnosis cellulitis, impetigo, shingles, stomatitis; unlikely Munroe-Angelo syndrome, TEN Narrative Course Patient placed on monitor IV access obtained patient given Benadryl 25 mg IV site Medrol 125 mg IV Pepcid 20 mg IV specimens collected and sent for resulting Patient given IV fluid bolus Lab values found to be in normal range Patient presents with impetiginous infection of the chin with yellow crusting with scant drainage. No findings for Munroe-Angelo syndrome or TEN. Patient is stable for outpatient management with stable vital signs and encouraged to follow-up closely with her primary care provider. Diagnosis Primary Impression: Impetigo Referrals: Primary Care Physician 2 days Patient Instructions: General Instructions Additional Instructions: Keep affected areas clean and dry; wash daily with dilute Dial soap Complete course of antibiotic as prescribed Take as tolerated pain medication May take as tolerated ibuprofen/Advil/Motrin every 6-8 hours per package directions for pain Associates inflammation Take acetaminophen/Tylenol every 4 hours as needed for fever 100.4F or greater Follow-up with your primary care provider call office in a.m. to schedule follow -up appointment in 2 days Return to the emergency department for any concerns or change in condition Continues to take Benadryl 25-50 mg every 6 hours as needed Take Pepcid twice daily for 7 days Return to the emergency department for any concerns or change in condition Increase fluid hydration Avoid extreme temperatures of food and beverages such as very hot foods or beverages Med/Other Pt SpecificInfo: Prescription(s) given Scripts Tramadol (Tramadol) 50 Mg Tab 50 MG PO Q6H Y for PAIN, #7 TAB 0 Refills Prov: Holly Dhillon MD 10/23/17 Doxycycline Hyclate (Doxycycline Hyclate) 100 Mg Cap 100 MG PO BID for Infection, #20 CAP 0 Refills Prov: Holly Dhillon MD 10/23/17 Disposition: 01 DISCHARGE HOME Condition: Stable Holly Dhillon MD October 23, 2017 04:07
[2017-10-23] MEDS ORDERED: diphenhydrAMINE HCL 50 MG/ML VIAL IV PUSH ONE (04:15)
[2017-10-23] MEDS ORDERED: CLINDAMYCIN INJ 600 MG in SODIUM CHLORIDE 0.9% INJ 100 ML IV ONE (04:15)
[2017-10-23] MEDS ORDERED: methylPREDNISolone SOD SUCC 125 MG/2 ML VIAL IV PUSH ONE (04:15)
[2017-10-23] MEDS ORDERED: FAMOTIDINE 20 MG/2 ML VIAL IV PUSH ONE (04:15)
[2017-10-23 05:37] LABS: AUTOMATED NEUTROPHIL # 6.3 TH/MM3 (1.8-7.7); BASOPHIL # 0.1 TH/MM3 (0-0.2); BASOPHIL % 0.6 % (0.0-2.0); EOSINOPHIL # 0.2 TH/MM3 (0-0.4); EOSINOPHIL % 1.7 % (0.0-4.0); HEMATOCRIT 45.5 % (35.0-46.0); HEMOGLOBIN 15.3 GM/DL (11.6-15.3); LYMPH % 17.6 % (9.0-44.0); LYMPHOCYTE # 1.5 TH/MM3 (1.0-4.8); MEAN CORPUSCULAR HEMOGLOBIN 28.9 PG (27.0-34.0); MEAN CORPUSCULAR HGB CONC 33.7 % (32.0-36.0); MEAN PLATELET VOLUME 8.7 FL (7.0-11.0); MONOCYTE # 0.7 TH/MM3 (0-0.9); NEUT % 72.1 % (16.0-70.0); PLATELET COUNT 201 TH/MM3 (150-450); RED BLOOD COUNT 5.29 MIL/MM3 (4.00-5.30); RED CELL DISTRIBUTION WIDTH 13.7 % (11.6-17.2); WHITE BLOOD COUNT 8.7 TH/MM3 (4.0-11.0)
[2017-10-23 05:55] LABS: BICARBONATE 27.6 MEQ/L (21.0-32.0); CALCIUM 8.6 MG/DL (8.5-10.1); CREATININE 0.84 MG/DL (0.50-1.00)
[2017-10-23] MEDS ORDERED: TRAM50TA PO (06:27)
[2017-10-23] MEDS ORDERED: DOXY100C PO (06:27)
[2017-10-23] MEDS ORDERED: traMADol HCL 50 MG TAB PO ONE (06:30)
[2017-10-23] MEDS ORDERED: DOXYCYCLINE HYCLATE 100 MG CAP PO ONE (06:30)
[2017-10-23] MEDS ORDERED: SODIUM CHLORID 0.9% 500 ML INJ 500 ML IV ONE (06:45)
[2017-10-23 07:53] VITALS: BP 170/85; PULSE 76; RESP 16; O2SAT 98
== END 2017-10-23 08:36 | disposition home or self-care (01) ==
LOC: NEPC 03:27
DX: L01.00 Impetigo, unspecified (principal); I10 Essential (primary) hypertension; J44.9 Chronic obstructive pulmonary disease, unspecified; K21.9 Gastro-esophageal reflux disease without esophagitis; M19.90 Unspecified osteoarthritis, unspecified site; F17.200 Nicotine dependence, unspecified, uncomplicated; Z96.653 Presence of artificial knee joint, bilateral
CPT/HCPCS: 80048; 85025; 96365; 96375; 99284; J1200; J2930; J7040